=== PATIENT | male | born 1955 ===

== ENCOUNTER 2020-08-05 22:51 | Observation (INO) | payer MEDICARE, MEDICAID, SELFPAY ==
[2020-08-05 23:03] VITALS: BP 133/72; PULSE 111; RESP 18; TEMP 36.6; O2SAT 97; BMI 27.8
--- NOTE | 2020-08-05 23:14 | DI.RAD.S_ITS ---
PROCEDURE: XR CHEST 1V INDICATIONS: chest pain TECHNIQUE: One view of the chest was acquired. COMPARISON: [facility], CR, CHEST 1VW (PORTABLE), 10/19/2012, 15:57. [facility], CR, CHEST 1VW (PORTABLE), 08/27/2013, 16:28. [facility], CR, XR CHEST 1 VIEW, 06/07/2017, 12:27. [facility], CT, CT ANGIO CHEST PE, 04/12/2019, 7:04. [facility], US, US ABDOMEN LIMITED, 08/06/2020, 3:37. [facility], CT, CT ANGIO CHEST PE PROTOCOL, 08/06/2020, 0:49. FINDINGS: Surgical changes and devices: None. Lungs and pleura: Lungs are clear. No pleural effusions or pneumothorax. Mediastinum: Mediastinal contours appear normal. Heart size is normal. Bones and chest wall: No suspicious bony lesions. There is a remote left mid clavicle fracture. Overlying soft tissues appear unremarkable. IMPRESSION: Portable chest within normal limits. Note: No significant discrepancy from the preliminary report. Dictated by: Raffaele Foote M.D. on 08/06/2020 at 8:15 Approved by: Raffaele Foote M.D. on 08/06/2020 at 8:18
[2020-08-05 23:25] VITALS: BP 123/75; PULSE 105; RESP 20; O2SAT 96
[2020-08-05 23:26] LABS: Add Manual Diff / Slide Review NO; Basophils Absolute Auto 100 /uL (0-100); Eosinophils Absolute Auto 300 /uL (0-450); Eosinophils Percent Auto 4.4 % (2-4); Hematocrit 46.9 % (41-53); Lymphocytes Absolute Auto 2500 /uL (1100-4500); Lymphocytes Percent Auto 42.3 % (25-40); Mean Corpuscular Hemoglobin 29.9 PG (26-34); Mean Corpuscular Volume 87.9 fL (80-100); Monocytes Absolute Auto 400 /uL (0-900); Monocytes Percent Auto 6.1 % (3-14); Neutrophils Absolute Auto 2700 /uL (1500-7000); Neutrophils Percent Auto 45.2 % (50-75); Platelet Count 135 X10^3/uL (150-400); Red Blood Cell Count 5.34 X10^6/uL (4.5-5.9); Red Cell Distribution Width 14.5 % (11.6-14.8); White Blood Cell Count 5.9 X10^3/uL (4.5-11.0)
[2020-08-05 23:31] LABS: Alanine Aminotransferase 26 IU/L (<50); Albumin 4.4 g/dL (3.5-5.0); Albumin Globulin Ratio 1.6 (1.0-2.8); Alkaline Phosphatase 112 U/L (38-126); Aspartate Aminotransferase 45 IU/L (17-59); BUN Creatinine Ratio 14.3 (6-22); Bilirubin Total 0.2 mg/dL (0.2-1.3); Blood Urea Nitrogen 13 mg/dL (9-20); Calcium 8.8 mg/dL (8.4-10.2); Carbon Dioxide 27 mmol/L (22-32); Chloride 109 mmol/L (98-107); Creatine Kinase 42 U/L (55-170); Estimated Glomerular Filt Rate > 60.0 mL/min (>60); Globulin 2.8 g/dL (1.7-4.1); Glucose 196 mg/dL (80-110); HEMOLYSIS 21 (0-50); Lipase 548 U/L (23-300); Potassium 4.6 mmol/L (3.4-5.1); Total Protein 7.2 g/dL (6.3-8.2)
[2020-08-05 23:33] LABS: Prothrombin Time 10.8 SECONDS (10.1-12.7); Sodium 145 mmol/L (137-145)
[2020-08-05 23:35] LABS: PTT Partial Thromboplastin Tim 33 SECONDS (26.4-36.2)
[2020-08-05 23:42] LABS: Troponin I < 0.012 ng/mL (0.01-0.034)
[2020-08-06] VITALS (11 sets, daily range): BP systolic 102–149; BP diastolic 53–86; PULSE 91–105; RESP 11–18; TEMP 36.6–37; O2SAT 94–99; BMI 27.8
--- NOTE | 2020-08-06 00:27 | ED_ITS ---
HPI - Chest Pain General Chief Complaint: Chest Pain Stated Complaint: Back Pain Time Seen by Provider: 08/05/20 23:50 Source: patient and EMS Mode of arrival: EMS Limitations: language barrier History of Present Illness HPI narrative: The patient arrives by EMS with chest pain that started about 5:00 p.m. today. The pain radiates to his back. He has no associated palpitations, or dyspnea. He has no cough. He has no pain to the neck or his left arm. He has a known history of coronary artery disease, he has a history of VA. He is diabetic. He is currently off all medications. He is not taking baby aspirin. 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 He is currently without a doctor, although he has hyperlipidemia, and diabetes he is off all medications. He smokes tobacco occasionally. He denies alcohol use for several years. He has no URI symptoms, no fever, no cough or dyspnea. Related Data Home Medications Medication Instructions Recorded Confirmed atorvastatin 08/05/20 08/05/20 fenofibrate micronized mg 08/05/20 08/05/20 metformin mg 08/05/20 08/05/20 metoprolol succinate PO 08/05/20 08/05/20 oxycodone 08/05/20 08/05/20 Allergies Allergy/AdvReac Type Severity Reaction Status Date / Time No Known Drug Allergies Allergy Verified 08/05/20 23:10 Review of Systems Constitutional Constitutional: Denies body ache(s), Denies chills, Reports fatigue and Denies fever(s) ENT Ears, Nose, Mouth, and Throat: Denies dizziness Comments: No complaints Cardiovascular Cardiovascular: Reports as per HPI and Denies dyspnea Respiratory Respiratory: Denies chest congestion, Denies cough, Denies pain with cough and Denies dyspnea Gastrointestinal Comments: Upper abdominal pain. No nausea vomiting. Genitourinary Genitourinary: Denies dysuria Genitourinary: Denies dysuria Comments: No genital pain Musculoskeletal Musculoskeletal: Reports back pain and Denies numbness Integumentary/Breasts Skin/Breast: Denies rash Neurologic Neurologic: Denies confusion, Denies dizziness and Denies numbness Psychiatric Psychiatric: Denies confusion Endocrine Endocrine: Reports fatigue Patient History Medical History (Updated 08/06/20 @ 04:55 by Cristóbal Ramirez MD) Coronary artery disease Diabetes Surgical History (Updated 08/06/20 @ 00:30 by Cristóbal Ramirez MD) H/O heart artery stent Social History Smoking Status: Current every day smoker Smoking Status: Current every day smoker Substance Use Type: does not use Exam Initial Vital Signs Initial Vital Signs: Vital Signs Temperature 97.9 F 08/05/20 23:03 Pulse Rate 111 H 08/05/20 23:03 Respiratory Rate 18 08/05/20 23:03 Blood Pressure 133/72 08/05/20 23:03 Pulse Oximetry 97 08/05/20 23:03 Const General: cooperative and well developed Nutritional Appearance: well nourished HENNJ Mouth: oral mucosae normal Throat: posterior oropharynx normal Eyes General: appearance normal, both eyes and all related structures Eyelids: eyelids normal Conjunctivae: conjunctivae normal Sclera: sclerae normal Pupils: PERRL EOM: EOM intact bilaterally Neck Neck: No JVD Chest Other: Lower sternal tenderness. No palpable defects. Resp Other: Bibasilar rhonchi. Otherwise clear. Cardio Rate: regular rate Rhythm: regular rhythm Heart Sounds: S1 normal, S2 normal, no click, no gallops, no murmurs and no rubs Pulses: normal peripheral pulses GI Other: Moderate epigastric discomfort without distension. No guarding or rebound. Normal bowel sounds. Back/Spine/Pelvis Other: Palpable lower thoracic tenderness without obvious deformity. Skin General: no rashes or lesions noted Neuro General: patient alert, patient oriented x3, gait normal and no focal motor deficits Speech: speech normal Extrem General: full ROM, no pedal edema and no calf tenderness Psych Appearance: well kempt Mental Status: mental status grossly normal Attitude: cooperative Thought Content: normal and suicidality Judgment: judgment good Course Course Course Narrative: The patient's EKG, chest x-ray and troponin level are reassuring. A chest CT a was done due to an elevated D-dimer. There is no jhonathan dence of PE or acute cardiopulmonary findings. Is also noted he had an elevated lipase level. A follow-up alcohol level was added, the level was 241. He continues to deny alcohol use. Due to the CT of chest, additional CT abdomen was not pursued. An ultrasound showed no acute pathology. It is notable there is no evidence of issues with his gallbladder or pancreas. He has received IV fluids. His received 2 doses of morphine for pain. Due to his ongoing pain, admissions was discussed with the hospitalist, JOSE Blancas. He was admitted observation. Orders Ordered: ED Orders 08/05/20 23:14 XR chest 1V Stat EKG-12 Lead Stat 08/05/20 23:25 D Dimer Stat 08/06/20 00:40 CT angio chest PE protocol Stat 08/06/20 00:41 Ethanol (ETOH) Stat 08/06/20 03:02 US abdomen limited Stat Sodium Chloride (Normal Saline 0.9%) 1,000 mls @ 250 mls/hr IV CONT JUAN Last Admin: 08/06/20 00:48 Dose: 250 mls/hr Documented by: VIVEK Discontinued Medications Morphine Sulfate (Morphine 4 Mg/Ml Inj) 4 mg IV NOW ONE Stop: 08/06/20 00:42 Last Admin: 08/06/20 00:48 Dose: 4 mg Documented by: VIVEK Morphine Sulfate (Morphine 4 Mg/Ml Inj) 4 mg IV NOW ONE Stop: 08/06/20 03:04 Last Admin: 08/06/20 03:18 Dose: 4 mg Documented by: PIA Vital Signs Vital signs: Vital Signs - 8 hr 08/05/20 23:03 08/05/20 23:25 08/06/20 00:50 Temperature 97.9 F Pulse Rate 111 H 105 H 98 H Respiratory Rate 18 20 17 Blood Pressure 133/72 123/75 128/71 Pulse Oximetry 97 96 99 08/06/20 01:00 08/06/20 01:30 08/06/20 01:55 Temperature Pulse Rate 100 H 97 H 105 H Respiratory Rate 11 L 16 Blood Pressure 133/83 110/58 L 130/76 Pulse Oximetry 98 94 98 08/06/20 02:00 08/06/20 02:30 08/06/20 03:00 Temperature Pulse Rate 93 H 92 H 101 H Respiratory Rate 15 Blood Pressure 123/67 117/72 149/86 H Pulse Oximetry 97 96 97 MDM - Chest Pain Lab Data Result diagrams: 08/05/20 11:08 08/05/20 11:08 Labs: Lab Results 08/05/20 08/05/20 08/05/20 Range/Units 11:08 11:08 11:08 WBC 5.9 (4.5-11.0) X10^3/uL RBC 5.34 (4.5-5.9) X10^6/uL Hgb 16.0 (13.5-17.5) g/dL Hct 46.9 (41-53) % MCV 87.9 (80-100) fL MCH 29.9 (26-34) PG MCHC 34.0 (30-36) % RDW 14.5 (11.6-14.8) % Plt Count 135 L (150-400) X10^3/uL Neut % (Auto) 45.2 L (50-75) % Lymph % (Auto) 42.3 H (25-40) % [place] % (Auto) 6.1 (3-14) % Eos % (Auto) 4.4 H (2-4) % Baso % (Auto) 2.0 (0-2) % Neut # (Auto) 2700 (4670-6604) /uL Lymph # (Auto) 2500 (3475-5825) /uL [place] # (Auto) 400 (0-900) /uL Eos # (Auto) 300 (0-450) /uL Baso # (Auto) 100 (0-100) /uL PT 10.8 (10.1-12.7) SECONDS INR 1.0 (0.9-1.3) APTT 33 (26.4-36.2) SECONDS D-Dimer (<230) ng/mL Sodium 145 (137-145) mmol/L Potassium 4.6 (3.4-5.1) mmol/L Chloride 109 H (98-107) mmol/L Carbon Dioxide 27 (22-32) mmol/L BUN 13 (9-20) mg/dL Creatinine 0.91 (0.66-1.25) mg/dL Estimated GFR > 60.0 (>60) mL/min BUN/Creatinine Ratio 14.3 (6-22) Glucose 196 H (80-110) mg/dL Calcium 8.8 (8.4-10.2) mg/dL Magnesium 2.0 (1.6-2.3) mg/dL Total Bilirubin 0.2 (0.2-1.3) mg/dL AST 45 (17-59) IU/L ALT 26 (<50) IU/L Alkaline Phosphatase 112 (38-126) U/L Total Creatine Kinase 42 L (55-170) U/L CK-MB (CK-2) TNP CK-MB (CK-2) Rel Index TNP Troponin I < 0.012 (0.01-0.034) ng/mL Total Protein 7.2 (6.3-8.2) g/dL Albumin 4.4 (3.5-5.0) g/dL Globulin 2.8 (1.7-4.1) g/dL Albumin/Globulin Ratio 1.6 (1.0-2.8) Lipase 548 H (23-300) U/L Ethyl Alcohol ( - 10) mg/dL 08/05/20 08/05/20 Range/Units 23:08 23:25 WBC (4.5-11.0) X10^3/uL RBC (4.5-5.9) X10^6/uL Hgb (13.5-17.5) g/dL Hct (41-53) % MCV (80-100) fL MCH (26-34) PG MCHC (30-36) % RDW (11.6-14.8) % Plt Count (150-400) X10^3/uL Neut % (Auto) (50-75) % Lymph % (Auto) (25-40) % Med[place] % (Auto) (3-14) % Eos % (Auto) (2-4) % Baso % (Auto) (0-2) % Neut # (Auto) (8255-1094) /uL Lymph # (Auto) (7280-5673) /uL Medina # (Auto) (0-900) /uL Eos # (Auto) (0-450) /uL Baso # (Auto) (0-100) /uL PT (10.1-12.7) SECONDS INR (0.9-1.3) APTT (26.4-36.2) SECONDS D-Dimer 776 H (<230) ng/mL Sodium (137-145) mmol/L Potassium (3.4-5.1) mmol/L Chloride (98-107) mmol/L Carbon Dioxide (22-32) mmol/L BUN (9-20) mg/dL Creatinine (0.66-1.25) mg/dL Estimated GFR (>60) mL/min BUN/Creatinine Ratio (6-22) Glucose (80-110) mg/dL Calcium (8.4-10.2) mg/dL Magnesium (1.6-2.3) mg/dL Total Bilirubin (0.2-1.3) mg/dL AST (17-59) IU/L ALT (<50) IU/L Alkaline Phosphatase (38-126) U/L Total Creatine Kinase (55-170) U/L CK-MB (CK-2) CK-MB (CK-2) Rel Index Troponin I (0.01-0.034) ng/mL Total Protein (6.3-8.2) g/dL Albumin (3.5-5.0) g/dL Globulin (1.7-4.1) g/dL Albumin/Globulin Ratio (1.0-2.8) Lipase (23-300) U/L Ethyl Alcohol 241 H ( - 10) mg/dL Imaging Data Chest x-ray: Radiologist's Impression: No acute process CT scan - chest: Radiologist's Impression: No evidence of PE. No cardiopulmonary process. US - abdomen: Radiologist's Impression: Borderline hepatomegaly. Hepatic steatosis. The gallbladder appears normal. The pancreas appears normal. ECG Data Attestation: I personally reviewed and interpreted this ECG as follows: (Thank you normal sinus rhythm rate 99 beats per minute. Old inferior VA. Normal intervals. No acute ST T wave changes.) Critical Care Time Critical Care Time Critical Care Time: Yes Total Critical Care Time: 45 Attestation: Patient's evaluation included the initial interview, evaluation of EKG, lab in radiology studies. The situation was explained to the patient. Admission to observation was arranged with the hospitalist. Discharge Plan Departure Patient Disposition: Admitted as Observation Clinical Impression: Alcoholic pancreatitis, Diabetes mellitus, Alcohol abuse Admit Date/Time: 08/06/20 04:20 Admit Provider: Poppy Blancas
[2020-08-06 00:34] LABS: D Dimer 776 ng/mL (<230)
--- NOTE | 2020-08-06 00:40 | DI.CT.S_ITS ---
PROCEDURE: CT ANGIO CHEST PE PROTOCOL INDICATIONS: Atypical chest pain TECHNIQUE: After the administration of intravenous contrast, 2 mm thick sections acquired from the pulmonary apices to the posterior costophrenic angles. 3-dimensional maximum intensity projection (MIP) coronal and sagittal reformats were then acquired through the thorax. For radiation dose reduction, the following was used: automated exposure control, adjustment of mA and/or kV according to patient size. COMPARISON: [facility], CT, CT ABDOMEN PELVIS WITH CONTRAST, 04/12/2019, 7:04. [facility], US, US ABDOMEN LIMITED, 08/06/2020, 3:37. [facility], CR, XR CHEST 1V, 08/05/2020, 23:19. FINDINGS: Image quality: Excellent. Pulmonary arteries: Pulmonary arteries are normal in size, and demonstrate no intraluminal filling defects to suggest central pulmonary embolism. Lungs and pleura: Emphysematous changes are seen. No pleural effusions or pneumothorax. Central and peripheral airways are patent. Mediastinum: Heart size is normal, without pericardial effusion. No mediastinal or hilar adenopathy. Calcified mediastinal and perihilar lymph nodes are seen. Thoracic aorta is normal in caliber and enhancement. Esophagus is normal in caliber, without hiatal hernia. Bones and chest wall: No suspicious bony lesions. Ribs and thoracic spine appear intact throughout. Age-appropriate bony degenerative changes are seen. Thyroid gland demonstrates no significant abnormality. No axillary or supraclavicular adenopathy. Abdomen: Splenomegaly is seen, measuring 14.8 cm. The visualized liver also appears prominent. The visualized portions of the upper abdominal structures are otherwise unremarkable for imaging technique. IMPRESSION: Negative for pulmonary embolism. Emphysematous changes are seen. Incidental note is made of: Prior granulomatous exposure. Hepatosplenomegaly Note: No significant discrepancy from the preliminary report. Dictated by: Raffaele Foote M.D. on 08/06/2020 at 8:18 Approved by: Raffaele Foote M.D. on 08/06/2020 at 8:22
[2020-08-06] MEDS: SODIUM CHLORIDE 0.9% 1,000 ML 250 ML IV (00:48)
[2020-08-06] MEDS: MORPHINE 4 MG/ML INJ IV ×4 (00:48→10:45)
[2020-08-06 01:13] LABS: Ethanol (ETOH) 241 mg/dL
--- NOTE | 2020-08-06 03:02 | DI.US.S_ITS ---
PROCEDURE: US ABDOMEN LIMITED INDICATIONS: PANCREATITIS TECHNIQUE: Real-time focused scanning was performed of the abdomen, with image documentation. COMPARISON: [facility], US, US ABDOMEN LIMITED, 04/13/2019, 11:41. [facility], CR, XR CHEST 1V, 08/05/2020, 23:19. [facility], CT, CT ANGIO CHEST PE PROTOCOL, 08/06/2020, 0:49. FINDINGS: The liver demonstrates mildly prominent size. The liver demonstrates generalized moderately increased echogenicity. This decreases ultrasound sensitivity for detection of hepatic masses. No findings of gallstones or sludge are seen. The gallbladder wall is not thickened, measuring 3 mm or less. No specific pericholecystic fluid is seen. The sonographic Rivera sign is negative. There is no biliary dilatation, the common bile duct measures 5 mm. No significant pancreatic abnormality is seen on these images. IMPRESSION: No pancreatic abnormality is identified. The liver demonstrates increased echogenicity. This finding is nonspecific, yet it is most commonly attributed to fatty infiltration. Note: Concordant preliminary findings given by the marketing administrative assistant upon the completion of the examination to Dr. Ramirez at 3:45 a.m. on August 06, 2020. Note: No significant discrepancy from the preliminary report. Dictated by: Raffaele Foote M.D. on 08/06/2020 at 8:29 Approved by: Raffaele Foote M.D. on 08/06/2020 at 8:31
[2020-08-06 05:35] LABS: Hemoglobin A1C% w Est Avg Glu 8.4 % (4.0-6.0)
[2020-08-06] MEDS: SODIUM CHLORIDE 0.9% 1,000 ML 100 ML IV (05:39)
[2020-08-06 05:42] LABS: COVID19 - ADMIT (NP swab/PCR) Negative (Negative)
--- NOTE | 2020-08-06 06:32 | PM.HP.1 ---
History of Present Illness History of Present Illness Date Patient Seen: 08/06/20 Time Patient Seen: 06:15 Chief complaint: Back Pain Narrative: Rahul Mota is a 64-year-old male who lives in [place] presents with back and chest pain to the emergency department here. He appears to have diabetes type 2, coronary artery disease, and hyperlipidemia. He is currently not being followed by primary care and told me that he got his prescriptions from the emergency department and has not been able to get in to see anybody before August. He states that he gets heartburn and takes medicine for that but was not able to tell me what it is. He has limited [place] as he is from [facility]. He states that he is disabled and the has work related back pain. He denies nausea he denies fevers sweats or chills denies dysuria, diarrhea or constipation. He does endorse having lower extremity numbing. In the emergency department he was found to have an alcohol level of 241 and the ED provider performed an ultrasound with no significant abnormal findings. He was not able to have the patient undergo an abdominal CT due to the contrast load when he underwent a CTA to rule out a pulmonary embolism which was also negative. Patient is afebrile, blood pressure 119/73, heart rate 91, respiratory rate 16, oxygen saturation of 96% on room air, weighs 80 kg with a BMI of 27.8. Other than a mildly low platelet count of 135 the rest of his CBC is unremarkable, he did have an elevated D-dimer at 776, glucose is 196 and his hemoglobin A1c is 8.4, lipase was 548 and alcohol level 241, COVID-19 PCR was negative. Patient History Medical History (Updated 08/06/20 @ 07:58 by JOSE Yost) Coronary artery disease Diabetes type 2, uncontrolled Elevated blood alcohol level Surgical History (Updated 08/06/20 @ 00:30 by Cristóbal Ramirez MD) H/O heart artery stent Family & Social History Family History (Updated 08/06/20 @ 06:42 by JOSE Yost) Father Lung cancer Mother Medical history unknown Social History: household members significant other Prior Living Arrangements Apartment/Condo Safety & Behavioral: Feels Safe in Current Yes Environment Been Physically Hurt or No Threatened By a Person Suicidal Ideation Description None Suicide Plan Description No Plan Tobacco & Substance use: Tobacco type cigarettes Smoking Status Current every day smoker alcohol intake former stated not drank for 11 years Substance Use Type does not use Meds Home Medications and Allergies Home Medications Medication Instructions Recorded Confirmed Type atorvastatin [Lipitor] 40 mg PO DAILY 08/05/20 08/06/20 History metformin 500 mg PO BID 08/05/20 08/06/20 History metoprolol succinate 25 mg PO DAILY 08/05/20 08/06/20 History oxycodone 5 mg PO Q8HR PRN 08/05/20 08/06/20 History Aspirin Child 81 mg PO DAILY 08/06/20 08/06/20 History fenofibrate micronized 134 mg PO DAILY 08/06/20 08/06/20 History pantoprazole 40 mg PO DAILY 08/06/20 08/06/20 History Allergies Allergy/AdvReac Type Severity Reaction Status Date / Time No Known Drug Allergies Allergy Verified 08/05/20 23:10 Review of Systems Review of Systems ROS: Yes All systems reviewed with the patient and are negative except as otherwise documented Exam Vital Signs (past 8 hours): - 08/05/20 23:03 08/05/20 23:25 08/06/20 00:50 Temperature 97.9 F Pulse Rate 111 H 105 H 98 H Respiratory Rate 18 20 17 Blood Pressure 133/72 123/75 128/71 Pulse Oximetry 97 96 99 08/06/20 01:00 08/06/20 01:30 08/06/20 01:55 Temperature Pulse Rate 100 H 97 H 105 H Respiratory Rate 11 L 16 Blood Pressure 133/83 110/58 L 130/76 Pulse Oximetry 98 94 98 08/06/20 02:00 08/06/20 02:30 08/06/20 03:00 Temperature Pulse Rate 93 H 92 H 101 H Respiratory Rate 15 Blood Pressure 123/67 117/72 149/86 H Pulse Oximetry 97 96 97 08/06/20 05:18 08/06/20 06:00 Temperature 98.6 F Pulse Rate 91 H 91 H Respiratory Rate 16 16 Blood Pressure 113/67 119/73 Pulse Oximetry 94 96 Oxygen Delivery Method Room Air Oxygen Flow Rate 0 Narrative Exam Narrative: Gen: Alert, oriented, well-nourished 64 y.o. male, appears ill HEENT: normocephalic, atraumatic, conjunctiva clear, sclera non-icteric, oral mucosa pink and moist Neck: supple, full ROM, no JVD, trachea is midline Resp: Lungs CTA, non-labored breathing CV: RRR, no murmur or rubs Abd: soft, non-tender, normoactive BTs Skin: no lesions or rashes, dry and intact Neuro: Alert and oriented X 4 w/no focal deficits. Speech clear and coherent. Extremities: moves all 4 extremities, is ambulatory, negative Mert?s sign Psyche: normal mood and affect. Objective Labs Result Diagrams: 08/05/20 23:08 08/05/20 23:08 Labs: Laboratory Results - last 24 hr 08/05/20 08/05/20 08/05/20 23:08 23:08 23:08 WBC 5.9 RBC 5.34 Hgb 16.0 Hct 46.9 MCV 87.9 MCH 29.9 MCHC 34.0 RDW 14.5 Plt Count 135 L Neut % (Auto) 45.2 L Lymph % (Auto) 42.3 H Douglas % (Auto) 6.1 Eos % (Auto) 4.4 H Baso % (Auto) 2.0 Neut # (Auto) 2700 Lymph # (Auto) 2500 Douglas # (Auto) 400 Eos # (Auto) 300 Baso # (Auto) 100 PT 10.8 INR 1.0 APTT 33 D-Dimer Sodium 145 Potassium 4.6 Chloride 109 H Carbon Dioxide 27 BUN 13 Creatinine 0.91 Estimated GFR > 60.0 BUN/Creatinine Ratio 14.3 Glucose 196 H Hemoglobin A1c Calcium 8.8 Magnesium 2.0 Total Bilirubin 0.2 AST 45 ALT 26 Alkaline Phosphatase 112 Total Creatine Kinase 42 L CK-MB (CK-2) TNP CK-MB (CK-2) Rel Index TNP Troponin I < 0.012 Total Protein 7.2 Albumin 4.4 Globulin 2.8 Albumin/Globulin Ratio 1.6 Lipase 548 H Ethyl Alcohol SARS-CoV-2 (PCR) 08/05/20 08/05/20 08/05/20 23:08 23:08 23:25 WBC RBC Hgb Hct MCV MCH MCHC RDW Plt Count Neut % (Auto) Lymph % (Auto) Douglas % (Auto) Eos % (Auto) Baso % (Auto) Neut # (Auto) Lymph # (Auto) Douglas # (Auto) Eos # (Auto) Baso # (Auto) PT INR APTT D-Dimer 776 H Sodium Potassium Chloride Carbon Dioxide BUN Creatinine Estimated GFR BUN/Creatinine Ratio Glucose Hemoglobin A1c 8.4 H Calcium Magnesium Total Bilirubin AST ALT Alkaline Phosphatase Total Creatine Kinase CK-MB (CK-2) CK-MB (CK-2) Rel Index Troponin I Total Protein Albumin Globulin Albumin/Globulin Ratio Lipase Ethyl Alcohol 241 H SARS-CoV-2 (PCR) 08/06/20 04:34 WBC RBC Hgb Hct MCV MCH MCHC RDW Plt Count Neut % (Auto) Lymph % (Auto) Douglas % (Auto) Eos % (Auto) Baso % (Auto) Neut # (Auto) Lymph # (Auto) Douglas # (Auto) Eos # (Auto) Baso # (Auto) PT INR APTT D-Dimer Sodium Potassium Chloride Carbon Dioxide BUN Creatinine Estimated GFR BUN/Creatinine Ratio Glucose Hemoglobin A1c Calcium Magnesium Total Bilirubin AST ALT Alkaline Phosphatase Total Creatine Kinase CK-MB (CK-2) CK-MB (CK-2) Rel Index Troponin I Total Protein Albumin Globulin Albumin/Globulin Ratio Lipase Ethyl Alcohol SARS-CoV-2 (PCR) Negative Assessment & Plan Assessment & Plan narrative: Rahul Mota will be placed in observation to treat an acute presumed alcoholic pancreatitis. Acute pancreatitis present on admission -Clears -CT scan of the abdomen 24 hours after the CTA chest -IVF NS at 100 ml/hour -Pain control with IV morphine and toradal Elevated transaminases, unknown if acute -monitor liver enzymes panel daily Diabetes type 2 poorly controlled with an A1c of 8.7 -Initiated glargine 5 units bid -low dose correctional insulin achs CAD, chronic and normotensive at this time -Start home dose of metoprolol tartrate 25 mg po daily Hyperlipidemia, chronic -Continue home dose of atorvastatin 40 mg and fenofibrate 134 mg at bedtime VTE prophylaxis: Wells risk score: 0 Enoxaparin 40 mg subQ daily Consults: none Patient is observation status as his stay is not likely to exceed 2 midnights. FEN: IV ns at 100 ml/hour, clears, BMP and magnesium in the am. Dispo: Probable discharge to home Code Status: Full code as discussed with patient COVID-19 COVID-19 status: Negative Result date/Date tested (Pos, Neg/Pending): 08/06/20 Scores Wells' Criteria for PE Clinical signs and symptoms of DVT: No PE is #1 Dx or equally likely: No Heart rate > 100: No Immobilization at least 3 days or surg in previous 4 weeks: No History of PE or DVT: No Hemoptysis: No Malignancy w/Treatment within 6 months or palliative: No Wells' PE Score total: 0 Quality VTE Deep Vein Thrombosis/Pulmonary Embolism Present on Admission: No MIPS - Admit I confirm the patient?s Advance Care Plan is present, Code status is documented, Surrogate decision maker is in patient?s record [If Yes, STOP here]: Yes
--- NOTE | 2020-08-06 06:56 | PC.NURSE ---
0530 Admitted to room 209, oriented to his room, call light, TV & bed controls. C/O back pain, but did not C/O CP upon admit to the floor. pt. requested some Morphine 4 mg. admin. Denies drinking any alcohol states last time I drink was 4 years ago. Also reported not taking his home medications & stated last time I have my home medications was 4 weeks ago. Will cont. POC & monitor.
[2020-08-06 07:02] LABS: Ethanol (ETOH) 54 mg/dL
[2020-08-06 07:03] LABS: Hemoglobin A1C% w Est Avg Glu 8.7 % (4.0-6.0)
--- NOTE | 2020-08-06 08:09 | PM.DS.1 ---
History of Present Illness History of Present Illness Date Patient Seen: 08/06/20 Time Patient Seen: 08:09 Chief complaint: Back Pain Narrative: JOSE Watkins: Rahul Mota is a 64-year-old male who lives in [place] presents with back and chest pain to the emergency department here. He appears to have diabetes type 2, coronary artery disease, and hyperlipidemia. He is currently not being followed by primary care and told me that he got his prescriptions from the emergency department and has not been able to get in to see anybody before August. He states that he gets heartburn and takes medicine for that but was not able to tell me what it is. He has limited Irish as he is from [facility]. He states that he is disabled and the has work related back pain. He denies nausea he denies fevers sweats or chills denies dysuria, diarrhea or constipation. He does endorse having lower extremity numbing. In the emergency department he was found to have an alcohol level of 241 and the ED provider performed an ultrasound with no significant abnormal findings. He was not able to have the patient undergo an abdominal CT due to the contrast load when he underwent a CTA to rule out a pulmonary embolism which was also negative. Patient is afebrile, blood pressure 119/73, heart rate 91, respiratory rate 16, oxygen saturation of 96% on room air, weighs 80 kg with a BMI of 27.8. Other than a mildly low platelet count of 135 the rest of his CBC is unremarkable, he did have an elevated D-dimer at 776, glucose is 196 and his hemoglobin A1c is 8.4, lipase was 548 and alcohol level 241, COVID-19 PCR was negative. Discharge Providers Provider Date of admission: 08/06/20 04:20 Discharge Date: 08/07/20 Consults: 08/06/20 04:33 Consult to Discharge Planning Routine Comment: alcohol rehab Discharge provider: Candido Leigh DO Summary Hospital Course Discharge Diagnosis: Alcoholic hepatitis, acute, present on admission, improved GERD, acute on chronic, improved. Diabetes type 2 poorly controlled with an A1c of 8.7 CAD, chronic and normotensive at this time Hyperlipidemia, chronic Hospital Course: This is a 64-year-old male with a past medical history of CAD, at type 2 diabetes, and hyperlipidemia who was admitted with epigastric, lower chest pain which was radiating to his back. Patient had a mildly elevated lipase, elevated alcohol level on admission, although the patient adamantly denied alcohol. CT imaging done in the emergency room did not show any pancreatic inflammation. Patient described the epigastric pain is predominantly burning and he did have a history of reflux. He was admitted for observation for possible pancreatitis, and the following morning he was able to tolerate a diet without any abdominal pain or nausea. Further possibilities include an alcoholic hepatitis given elevated transaminases that improved quickly. He was recommended for discharge on an oral PPI twice daily from his usual once a day for presumed GERD as well.. He should follow-up with his primary care provider as an outpatient. Exam Vital Signs (past 8 hours): - 08/06/20 00:50 08/06/20 01:00 08/06/20 01:30 Temperature Pulse Rate 98 H 100 H 97 H Respiratory Rate 17 11 L 16 Blood Pressure 128/71 133/83 110/58 L Pulse Oximetry 99 98 94 08/06/20 01:55 08/06/20 02:00 08/06/20 02:30 Temperature Pulse Rate 105 H 93 H 92 H Respiratory Rate Blood Pressure 130/76 123/67 117/72 Pulse Oximetry 98 97 96 08/06/20 03:00 08/06/20 05:18 08/06/20 06:00 Temperature 98.6 F Pulse Rate 101 H 91 H 91 H Respiratory Rate 15 16 16 Blood Pressure 149/86 H 113/67 119/73 Pulse Oximetry 97 94 96 08/06/20 06:47 Temperature Pulse Rate Respiratory Rate Blood Pressure Pulse Oximetry 96 Oxygen Delivery Method Room Air Oxygen Flow Rate 0 Narrative Exam Narrative: Gen: Alert, oriented, well-nourished 64 y.o. male, no acute distress, sitting comfortably in hospital bed. HEENT: normocephalic, atraumatic, conjunctiva clear, sclera non-icteric, oral mucosa pink and moist Neck: supple, full ROM, no JVD, trachea is midline Resp: Lungs CTA, non-labored breathing CV: RRR, no murmur or rubs Abd: soft, non-tender, normoactive BTs Skin: no lesions or rashes, dry and intact Neuro: Alert and oriented X 4 w/no focal deficits. Speech clear and coherent. Extremities: moves all 4 extremities, is ambulatory, negative Mert?s sign Psyche: normal mood and affect. Objective Labs Result Diagrams: 08/05/20 23:08 08/05/20 23:08 Labs: Laboratory Results - last 24 hr 08/05/20 08/05/20 08/05/20 23:08 23:08 23:08 WBC 5.9 RBC 5.34 Hgb 16.0 Hct 46.9 MCV 87.9 MCH 29.9 MCHC 34.0 RDW 14.5 Plt Count 135 L Neut % (Auto) 45.2 L Lymph % (Auto) 42.3 H [place] % (Auto) 6.1 Eos % (Auto) 4.4 H Baso % (Auto) 2.0 Neut # (Auto) 2700 Lymph # (Auto) 2500 [place] # (Auto) 400 Eos # (Auto) 300 Baso # (Auto) 100 PT 10.8 INR 1.0 APTT 33 D-Dimer Sodium 145 Potassium 4.6 Chloride 109 H Carbon Dioxide 27 BUN 13 Creatinine 0.91 Estimated GFR > 60.0 BUN/Creatinine Ratio 14.3 Glucose 196 H Hemoglobin A1c Calcium 8.8 Magnesium 2.0 Total Bilirubin 0.2 AST 45 ALT 26 Alkaline Phosphatase 112 Total Creatine Kinase 42 L CK-MB (CK-2) TNP CK-MB (CK-2) Rel Index TNP Troponin I < 0.012 Total Protein 7.2 Albumin 4.4 Globulin 2.8 Albumin/Globulin Ratio 1.6 Lipase 548 H Ethyl Alcohol SARS-CoV-2 (PCR) 08/05/20 08/05/20 08/05/20 23:08 23:08 23:25 WBC RBC Hgb Hct MCV MCH MCHC RDW Plt Count Neut % (Auto) Lymph % (Auto) [place] % (Auto) Eos % (Auto) Baso % (Auto) Neut # (Auto) Lymph # (Auto) [place] # (Auto) Eos # (Auto) Baso # (Auto) PT INR APTT D-Dimer 776 H Sodium Potassium Chloride Carbon Dioxide BUN Creatinine Estimated GFR BUN/Creatinine Ratio Glucose Hemoglobin A1c 8.4 H Calcium Magnesium Total Bilirubin AST ALT Alkaline Phosphatase Total Creatine Kinase CK-MB (CK-2) CK-MB (CK-2) Rel Index Troponin I Total Protein Albumin Globulin Albumin/Globulin Ratio Lipase Ethyl Alcohol 241 H SARS-CoV-2 (PCR) 08/06/20 08/06/20 08/06/20 04:34 06:30 06:30 WBC RBC Hgb Hct MCV MCH MCHC RDW Plt Count Neut % (Auto) Lymph % (Auto) [place] % (Auto) Eos % (Auto) Baso % (Auto) Neut # (Auto) Lymph # (Auto) [place] # (Auto) Eos # (Auto) Baso # (Auto) PT INR APTT D-Dimer Sodium Potassium Chloride Carbon Dioxide BUN Creatinine Estimated GFR BUN/Creatinine Ratio Glucose Hemoglobin A1c 8.7 H Calcium Magnesium Total Bilirubin AST ALT Alkaline Phosphatase Total Creatine Kinase CK-MB (CK-2) CK-MB (CK-2) Rel Index Troponin I Total Protein Albumin Globulin Albumin/Globulin Ratio Lipase Ethyl Alcohol 54 H SARS-CoV-2 (PCR) Negative [facility] Medical History (Updated 08/06/20 @ 07:58 by JOSE Yost) Coronary artery disease Diabetes type 2, uncontrolled Elevated blood alcohol level Surgical History (Updated 08/06/20 @ 00:30 by Cristóbal Ramirez MD) H/O heart artery stent Family History (Updated 08/06/20 @ 06:42 by JOSE Yost) Father Lung cancer Mother Medical history unknown Social History household members: significant other Smoking Status: Current every day smoker alcohol intake: former Discharge Plan Discharge Plan Patient Disposition: Home Provider Discharge Comment: You were admitted to the hospital with abdominal and chest pain. This may be due to mild pancreatitis or reflux. Please increase your pantoprazole to twice daily at home, otherwise no medication changes are recommended. If you drink alcohol, this can make your pancreas irritated as well. Discharge orders & Medications Prescriptions: Continued atorvastatin [Lipitor] 40 mg tablet 40 mg PO DAILY RF: 0 metformin 500 mg tablet 500 mg PO BID RF: 0 metoprolol succinate 25 mg tablet extended release 24 hr 25 mg PO DAILY RF: 0 oxycodone 5 mg tablet 5 mg PO Q8HR PRN (Reason: Pain.) RF: 0 fenofibrate micronized 134 mg capsule 134 mg PO DAILY RF: 0 Aspirin Child tablet 81 mg PO DAILY RF: 0 Changed pantoprazole tablet 40 mg PO BID Qty: 0 RF: 0 Diet/Activity/Treatments Diet: Diet as Tolerated and Low-fat Activity: As tolerated Visit Report/Discharge Packet Instructions: Coronary Artery Disease, DI for Pancreatitis, DI for Diabetes Type 2, DI for Coronary Artery Disease Discharge Data Attending Provider: Poppy Blancas VTE Deep Vein Thrombosis/Pulmonary Embolism Present on Admission: No
[2020-08-06] MEDS: ASPIRIN 81 MG CHEW TAB PO (08:51)
[2020-08-06] MEDS: MULTIVITAMIN 1 TABLET 1 TAB PO (08:52)
[2020-08-06] MEDS: FOLIC ACID 1 MG TABLET PO (08:52)
[2020-08-06] MEDS: THIAMINE 100 MG TABLET PO (08:52)
[2020-08-06] MEDS: ATORVASTATIN 20 MG TABLET 40 MG PO (08:53)
[2020-08-06] MEDS: FENOFIBRATE MICRONIZED 67 MG 134 EACH PO (08:56)
[2020-08-06] MEDS: SODIUM CHLORIDE 0.9% FLUSH 10 ML IV (08:57)
[2020-08-06] MEDS: KETOROLAC 30 MG/ML VIAL 15 MG IV (09:18)
--- NOTE | 2020-08-06 10:53 | CM.DANOTE ---
DCP: Case received, EMR reviewed and met with patient. Introduced self and role. Was able to obtain some information from patient regarding his baseline activity level prior to hospitalization, as well as his current living situation. DCP assessment completed with information currently available Patient is a 64 year old male who admitted early this morning to the care of the hospitalist team. PCP: None currently, establishing at [facility] in August. Payer: Medicare/Medicaid. Patient came to the hospital via ambulance secondary to having some back and abdominal discomfort. Patient holds current diagnosis of alcoholic pancreatitis. He also has history of diabetes type 2, and [place]. He is also a current smoker. Met with patient in his room. He was sitting up in bed, pleasant. Patient is originally from [facility]. He resides in [place] with his significant other, Brianna. He mentioned that he only drives short distances, and his significant does not drive. Patient mentioned that he has no current provider, but has an appointment in [place] in August for a current provider. Patient denies drinking, when this immigration case worker inquired. He is independent upon mobility. P: Patient is to be discharging home today. Called [employer] since they provide Medicaid transport, but patient has no transportation coverage due to spend down. Called [employer], and they indicated that transportation to [place] would be $45.00, patient stated he has credit card and can pay. 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 Kimberly Merino RN/Front Desk Admin
[2020-08-06 11:02] LABS: Alanine Aminotransferase 22 IU/L (<50); Albumin 3.5 g/dL (3.5-5.0); Albumin Globulin Ratio 1.5 (1.0-2.8); Alkaline Phosphatase 79 U/L (38-126); Aspartate Aminotransferase 36 IU/L (17-59); Bilirubin Total 0.2 mg/dL (0.2-1.3); Globulin 2.4 g/dL (1.7-4.1); HEMOLYSIS < 15 (0-50); Total Protein 5.9 g/dL (6.3-8.2)
--- NOTE | 2020-08-06 11:49 | PC.NURSE ---
Pt received lying in bed A&Ox3, requesting water and food. Initially NPO, then orders received for po diet. Pt tolerated well. Denies increased abdomen pain, nausea/vomitting. BS + x4. LS CTA. Reports back pain 8-10/10 pain, some relief with prn pain medications. Able to move about the room and ambulate with steady gait. VSS, afebrile. Declining to take metoprolol this a.m. MD notified. Upon MD evaluation this a.m. patient cleared for d/c home. CM arranging transportation via taxi. Pt verbalized understanding of medication change and instructions to follow up with PCP. Student nurse and RN escorted patient to [facility]'s taxi via w/[facility] with all of his belongings to discharge home.
--- NOTE | 2020-08-15 21:06 | PC.NURSE ---
Late Entry; NS infusion initiated 08/06 at 0539, stopped by discharge order, 0813.
== END 2020-08-06 11:15 | disposition home or self-care (01) ==
LOC: ED 23:50 → AC 08-06 04:20
PROVIDERS: Admitting Provider Nurse Practitioner Family; Emergency Provider Emergency Medicine; Referring Provider Emergency Medicine; Visit Provider Nurse Practitioner Family
DX: R07.9 Chest pain, unspecified (principal); I25.10 Atherosclerotic heart disease of native coronary artery without angina pectoris; I25.2 Old myocardial infarction; E11.9 Type 2 diabetes mellitus without complications; E78.5 Hyperlipidemia, unspecified; F17.210 Nicotine dependence, cigarettes, uncomplicated; R78.0 Finding of alcohol in blood; Y90.8 Blood alcohol level of 240 mg/100 ml or more; Z20.822 Contact with and (suspected) exposure to COVID-19
CPT/HCPCS: 36415; 71045; 71275; 76705; 80053; 80076; 80320; 82550; 82553; 82962; 83036; 83690; 83735; 84484; 85025; 85379; 85610; 85730; 87635; 93005; 96361; 96374; 96375; 96376; 99285; 99291; C9803; G0378; J1815; J1885; J2270; Q9967

== ENCOUNTER 2021-12-31 18:45 | Observation (INO) | payer MEDICARE, MEDICAID, SELFPAY ==
[2020-08-06 05:30] VITALS: BMI 27.8
--- NOTE | 2021-12-31 18:47 | DI.RAD.S_ITS ---
PROCEDURE: XR CHEST 1V INDICATIONS: chest pain TECHNIQUE: One view of the chest was acquired. COMPARISON: [facility], CR, XR CHEST 1V, 08/05/2020, 23:19. FINDINGS: Surgical changes and devices: None. Lungs and pleura: Lungs are clear. No pleural effusions or pneumothorax. Mediastinum: Mediastinal contours appear normal. Heart size is normal. Bones and chest wall: No suspicious bony lesions. Prior left clavicle fracture. Overlying soft tissues appear unremarkable. IMPRESSION: No acute osseous abnormality. Dictated by: Tian Monroy M.D. on 12/31/2021 at 19:23 Approved by: Tian Monroy M.D. on 12/31/2021 at 19:24
--- NOTE | 2021-12-31 18:48 | ED_ITS ---
HPI - General Adult General Chief complaint: Chest Pain Stated complaint: Bilateral LE, pelvis and chest wall pain Time Seen by Provider: 12/31/21 18:45 Source: patient Mode of arrival: EMS Limitations: no limitations History of Present Illness HPI narrative: Patient is a 66-year-old male. Is from [facility]. Malaysian is a 2nd language. He denied multiple offers for translation services. He is brought in by EMS for evaluation of worsening of his chronic lower back pain, bilateral lower extremity weakness, pain in his abdomen and bladder area, chest pain. Somewhat difficult to determine what is new for this patient and what is not new. It appears that he has chronic low back pain but over the past several days/weeks his pain seems to have worsened. He also has pain down both of his legs. He states that this causes him to be so weak that he can not make it to the bathroom and has soiled himself in the past because he could not get up off of his chair. He also describes pain in his lower abdomen. He is had pain all over his abdomen for several weeks now if not longer but worsening pain in his lower abdomen over the past couple days. He stated that the last time that he urinated was several hours ago. He is also having chest discomfort. For what I can ascertain the started yesterday. No shortness of breath. Initially there were reports that the pain was worse with palpation however he told me that it is not worse with movement or palpation of breathing. He denied any other medical problems but his lower back pain to myself. Related Data Home Medications Medication Instructions Recorded Confirmed atorvastatin 40 mg tablet (Lipitor) 40 mg PO DAILY 08/05/20 08/06/20 metformin 500 mg tablet 500 mg PO BID 08/05/20 08/06/20 metoprolol succinate 25 mg 25 mg PO DAILY 08/05/20 08/06/20 tablet,extended release 24 hr oxycodone 5 mg tablet 5 mg PO Q8HR PRN Pain. 08/05/20 08/06/20 Aspirin Child 81 mg PO DAILY 08/06/20 08/06/20 fenofibrate micronized 134 mg 134 mg PO DAILY 08/06/20 08/06/20 capsule naproxen sodium 220 mg capsule 220 mg PO BID 12/31/21 12/31/21 (Aleve) Previous Rx's Medication Instructions Recorded pantoprazole 40 mg PO BID ##0 08/06/20 Allergies Allergy/AdvReac Type Severity Reaction Status Date / Time No Known Drug Allergies Allergy Verified 08/05/20 23:10 Review of Systems Review of Systems ROS Unobtainable: All systems reviewed & are unremarkable except as noted in HPI and below Patient History Medical History Coronary artery disease Diabetes type 2, uncontrolled Elevated blood alcohol level Surgical History H/O heart artery stent Family History Father Lung cancer Mother Medical history unknown Social History household members: significant other Smoking Status: Current every day smoker alcohol intake: former Smoking Status: Current every day smoker Substance Use Type: does not use Exam Initial Vital Signs Initial Vital Signs: Vital Signs Pulse Rate 120 H 12/31/21 18:51 Respiratory Rate 26 H 12/31/21 18:51 Pulse Oximetry 95 12/31/21 18:51 Oxygen Delivery Method 12/31/21 18:51 Const General: No ill appearing HENMT Head: normal to inspection and normocephalic Eyes General: Yes appearance normal, both eyes and all related structures Chest Chest: No crepitus and No tenderness Resp Effort & Inspection: normal respiratory effort Auscultation: clear to auscultation bilaterally Cardio Rate: tachycardic Rhythm: regular rhythm GI Inspection: normal to inspection Palpation: soft, No firm and tender (Diffuse tenderness and suprapubic region) Skin General: no rashes or lesions noted Lesions: no lesions Neuro General: patient alert, patient awake and moves all extremities Speech: speech normal Gait: normal gait Extrem General: normal to inspection, capillary refill normal and No edema Psych Appearance: grossly normal Course Orders Ordered: ED Orders 12/31/21 18:47 XR chest 1V Stat EKG-12 Lead Stat 12/31/21 19:00 Complete Blood Count AUTO DIFF Stat Comprehensive Metabolic Panel Stat Lipase Stat Magnesium Stat Troponin & CK Cardiac Panel Stat Urinalysis and Microscopic Stat 12/31/21 20:16 COVID19 -Nasal RAPID/Pre-Proc Stat Acetaminophen (Acetaminophen 325 Mg Tablet) 650 mg PO Q6HR PRN PRN Reason: Fever/Mild Pain (1-3) Aspirin (Aspirin Ec 81 Mg Tablet) 81 mg PO DAILY [facility] Atorvastatin Calcium (Atorvastatin 20 Mg Tablet) 40 mg PO BEDTIME [facility] Last Admin: 12/31/21 23:51 Dose: 40 mg Documented By: AM Dextrose (Dextrose 50 % In Water 25 Gm/50 Ml Syringe) 25 gm IV PRN PRN PRN Reason: Hypoglycemia Enoxaparin Sodium (Enoxaparin 40 Mg/0.4 Ml Syringe) 40 mg SUBCUT DAILY [facility] Insulin Human Lispro (Insulin Lispro 100 Unit/Ml 3ml Vial) 0 unit SUBCUT ACHS [facility]; Protocol Last Admin: 01/01/22 00:02 Dose: 3 unit Documented By: AM Co-signed By: Ondansetron HCl (Ondansetron 4 Mg/2 Ml Inj) 4 mg IV Q8HR PRN PRN Reason: Nausea And Vomiting Last Admin: 12/31/21 23:50 Dose: 4 mg Documented By: AM Tramadol HCl (Tramadol 50 Mg Tablet) 50 mg PO Q4H PRN PRN Reason: Pain, Moderate (4-6) Last Admin: 12/31/21 23:50 Dose: 50 mg Documented By: AM Discontinued Medications Hydromorphone HCl (Hydromorphone 1 Mg Inj) 1 mg IV NOW ONE Stop: 12/31/21 20:06 Last Admin: 12/31/21 20:19 Dose: 1 mg Documented By: NADIYA Lidocaine HCl (Lidocaine 2% (Glydo) 6 Ml Gel) 6 ml TOP NOW ONE Stop: 12/31/21 18:44 Last Admin: 12/31/21 19:29 Dose: 6 ml Documented By: MAGNOLIA Morphine Sulfate (Morphine 4 Mg/Ml Inj) 4 mg IV NOW ONE Stop: 12/31/21 19:00 Last Admin: 12/31/21 19:32 Dose: 4 mg Documented By: NADIYA Vital Signs Vital signs: Vital Signs - 8 hr 12/31/21 18:51 12/31/21 18:54 12/31/21 18:54 Pulse Rate 120 H 107 H Respiratory Rate 26 H Blood Pressure 138/84 Pulse Oximetry 95 95 Oxygen Delivery Method Room Air 12/31/21 19:00 12/31/21 19:00 12/31/21 19:30 Pulse Rate 104 H Respiratory Rate Blood Pressure 134/75 111/69 Pulse Oximetry 95 Oxygen Delivery Method 12/31/21 19:30 12/31/21 19:50 12/31/21 19:50 Pulse Rate 102 H 97 H Respiratory Rate 11 L Blood Pressure 157/83 H Pulse Oximetry 95 96 Oxygen Delivery Method Medical Decision Making Lab Data Lab results reviewed: Yes I reviewed the patient's lab results. Result diagrams: 12/31/21 19:00 12/31/21 19:00 Labs: Lab Results 12/31/21 12/31/21 12/31/21 Range/Units 17:00 19:00 19:00 WBC 6.5 (4.5-11.0) X10^3/uL RBC 5.46 (4.5-5.9) X10^6/uL Hgb 16.8 (13.5-17.5) g/dL Hct 47.6 (41-53) % MCV 87.2 (80-100) fL MCH 30.7 (26-34) PG MCHC 35.2 (30-36) % RDW 14.1 (11.6-14.8) % Plt Count 154 (150-400) X10^3/uL Neut % (Auto) 56.9 (50-75) % Lymph % (Auto) 34.0 (25-40) % [place] % (Auto) 6.3 (3-14) % Eos % (Auto) 2.0 (2-4) % Baso % (Auto) 0.8 (0-2) % Neut # (Auto) 3700 (4994-0344) /uL Lymph # (Auto) 2200 (4429-7254) /uL [place] # (Auto) 400 (0-900) /uL Eos # (Auto) 100 (0-450) /uL Baso # (Auto) 0 (0-100) /uL D-Dimer (<500) ng/ml Sodium 138 (137-145) mmol/L Potassium 5.4 H (3.4-5.1) mmol/L Chloride 105 (98-107) mmol/L Carbon Dioxide 17 L (22-32) mmol/L BUN 5 L (9-20) mg/dL Creatinine 0.71 (0.66-1.25) mg/dL Estimated GFR > 60 (>60) mL/min BUN/Creatinine Ratio 7.0 (6-22) Glucose 390 H (80-110) mg/dL Calcium 8.3 L (8.4-10.2) mg/dL Magnesium 1.8 (1.6-2.3) mg/dL Total Bilirubin 1.1 (0.2-1.3) mg/dL AST 91 H (17-59) IU/L ALT 90 H (<50) IU/L Alkaline Phosphatase 129 H (38-126) U/L Total Creatine Kinase 38 L (55-170) U/L CK-MB (CK-2) TNP CK-MB (CK-2) Rel Index TNP Troponin I < 0.012 (0.01-0.034) ng/mL Total Protein 7.6 (6.3-8.2) g/dL Albumin 4.3 (3.5-5.0) g/dL Globulin 3.3 (1.7-4.1) g/dL Albumin/Globulin Ratio 1.3 (1.0-2.8) Lipase 648 H (23-300) U/L Urine Color Urine Appearance Urine pH (4.5-8.0) Ur Specific [place] (1.000-1.035) Urine Protein (Negative) Urine Glucose (UA) (Negative) g/dL Urine Ketones (NEGATIVE) Urine Occult Blood (Negative) Urine Nitrate (Negative) Urine Bilirubin (NEGATIVE) Urine Urobilinogen (0.2) E.U./dL Ur Leukocyte Esterase (NEGATIVE) Urine RBC (0-5/HPF) Urine WBC (0-5/HPF) Amorphous Sediment Urine Bacteria (None) Ur Culture Indicated? Ethyl Alcohol 225 H ( - 10) mg/dL SARS-CoV-2 (PCR) (Negative) 12/31/21 12/31/21 12/31/21 Range/Units 19:00 19:00 20:16 WBC (4.5-11.0) X10^3/uL RBC (4.5-5.9) X10^6/uL Hgb (13.5-17.5) g/dL Hct (41-53) % MCV (80-100) fL MCH (26-34) PG MCHC (30-36) % RDW (11.6-14.8) % Plt Count (150-400) X10^3/uL Neut % (Auto) (50-75) % Lymph % (Auto) (25-40) % [place] % (Auto) (3-14) % Eos % (Auto) (2-4) % Baso % (Auto) (0-2) % Neut # (Auto) (7181-6955) /uL Lymph # (Auto) (5665-2790) /uL [place] # (Auto) (0-900) /uL Eos # (Auto) (0-450) /uL Baso # (Auto) (0-100) /uL D-Dimer 1528 H (<500) ng/ml Sodium (137-145) mmol/L Potassium (3.4-5.1) mmol/L Chloride (98-107) mmol/L Carbon Dioxide (22-32) mmol/L BUN (9-20) mg/dL Creatinine (0.66-1.25) mg/dL Estimated GFR (>60) mL/min BUN/Creatinine Ratio (6-22) Glucose (80-110) mg/dL Calcium (8.4-10.2) mg/dL Magnesium (1.6-2.3) mg/dL Total Bilirubin (0.2-1.3) mg/dL AST (17-59) IU/L ALT (<50) IU/L Alkaline Phosphatase (38-126) U/L Total Creatine Kinase (55-170) U/L CK-MB (CK-2) CK-MB (CK-2) Rel Index Troponin I (0.01-0.034) ng/mL Total Protein (6.3-8.2) g/dL Albumin (3.5-5.0) g/dL Globulin (1.7-4.1) g/dL Albumin/Globulin Ratio (1.0-2.8) Lipase (23-300) U/L Urine Color Yellow Urine Appearance Clear Urine pH 5.0 (4.5-8.0) Ur Specific [place] <=1.005 (1.000-1.035) Urine Protein Negative (Negative) Urine Glucose (UA) 3+ H (Negative) g/dL Urine Ketones Negative (NEGATIVE) Urine Occult Blood Negative (Negative) Urine Nitrate Negative (Negative) Urine Bilirubin Negative (NEGATIVE) Urine Urobilinogen 0.2 (0.2) E.U./dL Ur Leukocyte Esterase Negative (NEGATIVE) Urine RBC 0-1/hpf (0-5/HPF) Urine WBC None seen (0-5/HPF) Amorphous Sediment 1+ Urine Bacteria None seen (None) Ur Culture Indicated? Cult not indicated Ethyl Alcohol ( - 10) mg/dL SARS-CoV-2 (PCR) Negative (Negative) Imaging Data Chest x-ray: Radiologist's Impression: [address] [address] XRay Report Signed Patient: Rahul Mota MR#: [id number] : 1955 Acct:[id number] Age/Sex: 66 / M Date of Service: 12/31/21 Loc: ED Accession Number: [id number] ?? Procedure: XR chest 1V Ordering Provider: Cullen Guadarrama D.O. PROCEDURE:? XR CHEST 1V ? INDICATIONS:? chest pain ? TECHNIQUE:? One view of the chest was acquired.? ? COMPARISON:? [facility], CR, XR CHEST 1V, 08/05/2020, 23:19. ? FINDINGS:? ? Surgical changes and devices:? None.? ? Lungs and pleura:? Lungs are clear.? No pleural effusions or pneumothorax.? ? Mediastinum:? Mediastinal contours appear normal.? Heart size is normal.? ? Bones and chest wall:? No suspicious bony lesions.? Prior left clavicle fracture.? Overlying soft tissues appear unremarkable.? ? IMPRESSION:? No acute osseous abnormality. ? ? Dictated by: Tian Monroy M.D. on 12/31/2021 at 19:23 ? ? Approved by: Tian Monroy M.D. on 12/31/2021 at 19:24?? ECG Data Interpretation: Sinus rhythm Ventricular rate [address] T wave changes MDM Narrative Medical decision making narrative: Bladder scan upon arrival shows greater than 600 cc of urine in his bladder. A Weiner catheter was placed. Patient stated that this did improve his lower abdominal discomfort somewhat. His lower back pain is not new. The pain in his legs are not new. This has been going on for several weeks/months. Because of his urinary retention did consider cauda equina. Patient denies any trauma. He is no saddle anesthesia. EKG is unremarkable. Chest x-ray is unremarkable. Troponins negative. Patient does not have a primary care doctor. Initially denied any other medical problems to myself and states he does not take any medi cations. I do feel patient does need further risk stratification of his chest discomfort. Discussed the case with Dr. Chinchilla on-call for Internal Medicine will admit for further evaluation and treatment. The D-dimer and alcohol level were ordered by admitting team. Discussed the need for admission with the patient. He expressed understanding and agreement as well. Discharge Plan Departure Patient Disposition: Admitted as Observation Clinical Impression: Atypical chest pain, Hypertension, Low back pain, Acute urinary retention, Hyperglycemia Admit Date/Time: 12/31/21 20:16 Admit Provider: Clyde Chinchilla
[2021-12-31 18:51] VITALS: PULSE 120; RESP 26; O2SAT 95
[2021-12-31 18:54] VITALS: BP 138/84; PULSE 107; O2SAT 95
[2021-12-31 19:00] VITALS: BP 134/75; PULSE 104; O2SAT 95
[2021-12-31 19:08] LABS: Add Manual Diff / Slide Review NO; Basophils Absolute Auto 0 /uL (0-100); Basophils Percent Auto 0.8 % (0-2); Eosinophils Absolute Auto 100 /uL (0-450); Hematocrit 47.6 % (41-53); Hemoglobin 16.8 g/dL (13.5-17.5); Lymphocytes Absolute Auto 2200 /uL (1100-4500); Mean Corpuscular HGB Conc 35.2 % (30-36); Mean Corpuscular Hemoglobin 30.7 PG (26-34); Mean Corpuscular Volume 87.2 fL (80-100); Monocytes Absolute Auto 400 /uL (0-900); Monocytes Percent Auto 6.3 % (3-14); Neutrophils Absolute Auto 3700 /uL (1500-7000); Neutrophils Percent Auto 56.9 % (50-75); Platelet Count 154 X10^3/uL (150-400); Red Blood Cell Count 5.46 X10^6/uL (4.5-5.9); Red Cell Distribution Width 14.1 % (11.6-14.8); White Blood Cell Count 6.5 X10^3/uL (4.5-11.0)
[2021-12-31 19:12] LABS: Appearance Urine UA CLEAR; Bilirubin Urine UA NEGATIVE (NEGATIVE); Color Urine UA YELLOW; Glucose Urine UA 3+ g/dL (Negative); Ketones Urine UA NEGATIVE (NEGATIVE); Leukocyte Esterase Urine UA NEGATIVE (NEGATIVE); Nitrite Urine UA NEGATIVE (Negative); Occult Blood Urine UA NEGATIVE (Negative); Protein Urine UA NEGATIVE (Negative); Specific Gravity Urine UA <=1.005 (1.000-1.035); Urobilinogen Urine UA 0.2 E.U./dL (0.2)
[2021-12-31 19:19] LABS: Amorphous Sediment Urine 1+; Bacteria Urine None Seen; Culture Indicated Urine Cult Not Indicated; RBC Urine 0-1/HPF (0-5/HPF); WBC Urine None Seen (0-5/HPF)
[2021-12-31 19:20] LABS: Alanine Aminotransferase 90 IU/L (<50); Albumin 4.3 g/dL (3.5-5.0); Albumin Globulin Ratio 1.3 (1.0-2.8); Alkaline Phosphatase 129 U/L (38-126); Aspartate Aminotransferase 91 IU/L (17-59); Bilirubin Total 1.1 mg/dL (0.2-1.3); Blood Urea Nitrogen 5 mg/dL (9-20); Calcium 8.3 mg/dL (8.4-10.2); Carbon Dioxide 17 mmol/L (22-32); Chloride 105 mmol/L (98-107); Creatine Kinase 38 U/L (55-170); Estimated Glomerular Filt Rate > 60 mL/min (>60); Globulin 3.3 g/dL (1.7-4.1); Glucose 390 mg/dL (80-110); Lipase 648 U/L (23-300); Magnesium 1.8 mg/dL (1.6-2.3); Sodium 138 mmol/L (137-145); Total Protein 7.6 g/dL (6.3-8.2)
[2021-12-31 19:22] LABS: HEMOLYSIS 72 (0-50); Potassium 5.4 mmol/L (3.4-5.1)
[2021-12-31] MEDS: LIDOCAINE 2% (GLYDO) 6 ML GEL TOP (19:29)
[2021-12-31 19:30] VITALS: BP 111/69; PULSE 102; O2SAT 95
[2021-12-31 19:32] LABS: Troponin I < 0.012 ng/mL (0.01-0.034)
[2021-12-31] MEDS: MORPHINE 4 MG/ML INJ IV (19:32)
[2021-12-31 19:50] VITALS: BP 157/83; PULSE 97; RESP 11; O2SAT 96
--- NOTE | 2021-12-31 19:50 | PC.NURSE ---
Patient laying back on gurney with arms by his side. He reports continued 7/10 substernal chest pain without radiation, describing it as pressure. Pain does not change with movement. He reports some relief after eden catheter placement.
[2021-12-31] MEDS: HYDROMORPHONE 1 MG INJ IV (20:19)
[2021-12-31 20:52] LABS: D Dimer 1528 ng/ml (<500)
[2021-12-31 21:20] VITALS: BP 158/88; PULSE 101; RESP 20; TEMP 36.7; O2SAT 97
--- NOTE | 2021-12-31 21:24 | DI.NM.S_ITS ---
PROCEDURE: NM ARCHANA PERF SPECT R&S PHARM Rest and pharmacological stress myocardial perfusion SPECT with gated imaging and ejection fraction RADIOPHARMACEUTICAL: 9.2 mCi Tc-99m tetrafosmin IV at rest and 27.4 mCi Tc-99m tetrafosmin IV at peak effect of pharmacological stress. Wge-gvi-yaglaemt was performed. INDICATIONS: Chest pain TECHNIQUE: Radiopharmaceutical was injected at peak stress test, and also at rest. SPECT images were obtained. SPECT myocardial perfusion images were displayed in short axis, horizontal long axis, and vertical long axis views. Gated images were reviewed using [employer] software. COMPARISON: None. CARDIAC STRESS: A pharmacologic stress test was performed under the supervision of an attending staff, using an infusion of regadenoson. Hemodynamic data: There is normal blood pressure and heart rate response to pharmacologic stress. Symptoms: The patient denied anginal chest pain. EKG: Unable to evaluate for ischemia with pharmacologic stress; no ectopy. FINDINGS: Raw data: There is good myocardial uptake of radiotracer. No significant motion artifacts. Dcdj-oq-bhzij ratio is 0.47 (normal is less than 0.38 for tetrafosmin tracer). Left ventricle function: Gated images demonstrate inferior and inferolateral hypokinesis. No segmental wall motion abnormalities. No transient ischemic dilation; TID is 1.23 (normal less than 1.3). Left ventricle stress end diastolic volume is 146 mL. Left ventricle stress ejection fraction is 62%; normal range is above 45%. Myocardial perfusion: There is a large size, moderate to severe intensity fixed inferior and inferolateral wall defect. No reversible perfusion defects. IMPRESSION: No evidence of pharmacologic induced ischemia. Inferior and inferolateral scar on perfusion imaging with associated hypokinesis. Increased LVEDV in the post stress images with preserved ejection fraction. Dictated by: Sujatha Retana D.O. on 01/01/2022 at 16:57 Approved by: Sujatha Retana D.O. on 01/01/2022 at 17:01
--- NOTE | 2021-12-31 21:24 | DI.ECHO.S_ITS ---
[facility]---------+ [facility] +---------+ : : [address] : : : : [id number] : : : : Phone: [phone]+ Echocardiogram Report + + :Name: CINDY LOBATO Study Date: 01/01/2022 Height: 68 in : :[facility] ReadingLocation: Weight: 180 lb : : Gender: Male BSA: 2.0 m2 : :: 1955 Age: 66 yrs BP: 157/83 mmHg: :Reason For Study: CHEST PAIN : :Ordering Physician: MECHE, : :RIZWAN Performed By: Shannan Lawler : :Referring: RIZWAN MCGREGOR : + + Interpretation Summary The patient was in sinus rhythm with heart rates between 78-90 bpm during the exam. Hypertensive during exam The ejection fraction is estimated to be 45-50%. There is a borderline dyssynchronous contraction pattern, consistent with a conduction abnormality. Diastolic parameters suggest a relaxation abnormality of the left ventricle, consistent with probable normal filling pressures. No prior study for comparison. Procedure: A two-dimensional transthoracic echocardiogram with color flow and Doppler was performed. The study quality was technically adequate. There is no prior echocardiogram noted for this patient. The patient was in sinus rhythm with heart rates between 78-90 bpm during the exam. Hypertensive during exam. Left Ventricle: The estimated left ventricular end diastolic volume is 95 ml. The left ventricle is grossly normal size. There is normal left ventricular wall thickness. The ejection fraction is estimated to be 45-50%. There is a borderline dyssynchronous contraction pattern, consistent with a conduction abnormality. Diastolic parameters suggest a relaxation abnormality of the left ventricle, consistent with probable normal filling pressures. Right Ventricle: The right ventricle is normal in size and function. Atria: The left atrium grossly appears normal in size. Right atrial size is normal. There is no Doppler evidence for an interatrial shunt. Mitral Valve: The mitral valve is normal in structure and function. There is trace mitral regurgitation. Aortic Valve: The aortic valve is trileaflet. The aortic valve opens well. There is no aortic valve stenosis. There is trace aortic regurgitation. Tricuspid Valve: The tricuspid valve is normal in structure and function. There is trace tricuspid regurgitation. Pulmonic Valve: The pulmonic valve is not well seen, but is grossly normal. There is no pulmonic valvular regurgitation. Great Vessels: The aortic root is normal size. The dimensions of the ascending aorta are normal. The inferior vena cava was not well visualized. Pericardium/ Pleura There is no pericardial effusion. There is no pleural effusion. MMode/2D Measurements & Calculations LVIDd: 6.1 cm LVOT diam: 2.1 cm LVIDs: 4.7 cm Ao root diam: 3.3 cm FS: 23.3 % asc Aorta Diam: 3.5 cm EPSS: 1.1 cm Ao Arch Diam (Prox Trans): 2.9 cm IVSd: 0.85 cm LVPWd: 0.85 cm LV vaughn. diameter/BSA (cm/m^2): 3.1 LV sys. diameter/BSA (cm/m^2): 2.4 LA A2 area: 15.2 cm2 RA long axis: 4.4 cm LA A4 area: 14.1 cm2 RA area: 11.5 cm2 LA length (vol): 4.7 cm RA vol: 25.6 ml LA vol: 38.5 ml RA : 13.1 ml/m2 LA vol index: 19.7 ml/m2 IVC diam: 0.96 cm RVD1 (basal): 2.4 cm RVD2 (mid): 1.8 cm TAPSE: 1.7 cm Doppler Measurements & Calculations Ao V2 max: 112.2 cm/sec LVOT Max Miah: 92.1 cm/sec Ao V2 mean: 84.5 cm/sec LV V1 max P.4 mmHg Ao max P.0 mmHg LV V1 VTI: 18.5 cm Ao mean P.1 mmHg BRIAN(I,D): 2.9 cm2 Ao V2 VTI: 21.9 cm BRIAN(V,D): 2.8 cm2 sev ratio: 0.85 BRIAN indexed to BSA (cm^2/m^2): 1.5 MV E max miah: 47.3 cm/sec PA V2 max: 89.8 cm/sec MV A max miah: 77.0 cm/sec PA V2 mean: 63.8 cm/sec MV E/A: 0.61 PA mean P.8 mmHg Med Peak E' Miah: 5.0 cm/sec PA pr(Accel): 49.9 mmHg E/E' med: 9.4 Lat Peak E' Miah: 10.3 cm/sec E/E' lat: 4.6 E/e' average: 7.0 MV dec time: 0.24 sec SVLVOT): 63.1 ml Reading Physician:KASEY
[2021-12-31 21:28] VITALS: BMI 27.3
[2021-12-31 21:32] LABS: COVID19 -Nasal RAPID Negative (Negative)
--- NOTE | 2021-12-31 21:48 | DI.CT.S_ITS ---
PROCEDURE: CT ANGIO CHEST PE PROTOCOL INDICATIONS: chest pain TECHNIQUE: After the administration of intravenous contrast, 2 mm thick sections acquired from the pulmonary apices to the posterior costophrenic angles. 3-dimensional maximum intensity projection (MIP) coronal and sagittal reformats were then acquired through the thorax. For radiation dose reduction, the following was used: automated exposure control, adjustment of mA and/or kV according to patient size. COMPARISON: [facility], CT, CT ABDOMEN PELVIS W CON, 12/31/2021, 23:01. [facility], CT, CT ANGIO CHEST PE PROTOCOL, 08/06/2020, 0:49. FINDINGS: Image quality: Excellent. Pulmonary arteries: Pulmonary arteries are normal in size, and demonstrate no intraluminal filling defects to suggest central pulmonary embolism. Lower Neck: No lymphadenopathy by size criteria. Thyroid: Visualized thyroid demonstrates no discrete nodules. Axillae: No lymphadenopathy by size criteria. Chest Wall: Unremarkable. Bones: Visualized osseous structures demonstrate no suspicious lesions. Lungs and Airways: Within the medial left upper lobe, there is a pulmonary nodule measuring up to 1.6 cm on series 5, image 127 with spiculated margins which is new compared to the prior study. This extends to the pericardium medially. No acute consolidation. There is dependent atelectasis bilaterally. A linear region of scarring or atelectasis is also demonstrated in the right lower lobe posteriorly. There are [id number] centrilobular emphysematous changes and mild paraseptal emphysematous changes. Scarring is redemonstrated within the lung apices. A calcified left upper lobe nodule is redemonstrated consistent with sequelae of old granulomas disease. The trachea and central airways are patent. Pleura: No pneumothorax or pleural effusions. Heart: Heart size is normal. No pericardial effusion. Thoracic Vessels: The thoracic aorta is normal in size. Mediastinum and Dione: No lymphadenopathy by size criteria. There are calcified mediastinal and hilar lymph nodes consistent with sequelae of old granulomatous disease. Esophagus: No wall thickening. No hiatal hernia. Abdomen: Visualized upper abdomen demonstrates hypoattenuation of the visualized liver consistent with fatty infiltration. IMPRESSION: 1. No evidence of pulmonary embolism. 2. New left upper lobe spiculated nodule extending to the pericardium medially is nonspecific but suspicious for a neoplasm such as bronchogenic carcinoma. Recommend further evaluation with PET-CT. Dictated by: Severo Choe M.D. on 01/01/2022 at 1:00 Approved by: Severo Choe M.D. on 01/01/2022 at 1:06
--- NOTE | 2021-12-31 21:48 | DI.CT.S_ITS ---
PROCEDURE: CT ABDOMEN PELVIS W CON INDICATIONS: abdominal pain TECHNIQUE: After the administration of IV contrast, axial sections were acquired from the lung bases to the pubic symphysis. Coronal and sagittal reformats were performed. For radiation dose reduction, the following was used: automated exposure control, adjustment of mA and/or kV according to patient size. COMPARISON: [facility], CT, CT ABDOMEN PELVIS WITH CONTRAST, 04/12/2019, 7:04. FINDINGS: Image quality: Excellent. Lung bases: There is atelectasis and scarring in the right lower lobe. Heart: Heart is normal in size. ABDOMEN: Liver: There is diffuse hypoattenuation of the liver consistent with fatty infiltration. Gallbladder: Within normal limits without calcified gallstones. Biliary ducts: No biliary ductal dilatation. Pancreas: Unremarkable. Spleen: Normal in size. Adrenal Glands: No adrenal nodules. Kidneys and Ureters: No hydronephrosis. A left renal cortical cyst is noted. Stomach and Bowel: Stomach, small bowel loops, and colon are normal in caliber and wall thickness. The appendix is normal in appearance. Colonic diverticulosis is present without acute diverticulitis. Peritoneum: No abnormal intraperitoneal fluid. No free air. Ventral Wall: No hernia. Abdominal Nodes: No retroperitoneal or mesenteric adenopathy by size criteria. Vessels: Aorta and inferior vena cava are normal in size. PELVIS: Pelvic Organs: Unremarkable. Bladder: There is a Weiner catheter within a partially distended urinary bladder. Pelvic Nodes: No enlarged lymph nodes. Miscellaneous: There are small bilateral fat-containing inguinal hernias. Bones: Visualized osseous structures demonstrate no suspicious focal lesions. IMPRESSION: 1. No definite acute intra-abdominal abnormality. Specifically, no evidence of appendicitis. 2. Colonic diverticulosis without acute diverticulitis. 3. Hepatic steatosis. Dictated by: Severo Choe M.D. on 01/01/2022 at 0:56 Approved by: Severo Choe M.D. on 01/01/2022 at 0:59
--- NOTE | 2021-12-31 21:49 | PM.HP.1 ---
History of Present Illness History of Present Illness Date Patient Seen: 12/31/21 Time Patient Seen: 20:00 Chief complaint: Bilateral LE, pelvis and chest wall pain Narrative: Mr. Mota is a 66M with PMH CAD s/p MA, DM, active tobacco smoker who presents with multiple complaints. He has a history of CAD s/p MA in 2012. He takes no medications currently and does not follow up with any physician or PCP. He also has had chronic back pain after an injury decades ago and has significant mobility issues. He comes in to the hospital today with complaints of chest pain. This has been going on a couple days. He thought it was possibly heartburn. It is pressure like pain in a band across his chest, with some associated shortness of breath. No cough/fevers. He also complains of chronic low back pain, which is now radiating to his legs. He has had chronic lower extremity numbness, and may have had an episode of incontinence in the past. He also is complaining of generalized abdominal pain with no nausea, vomiting, or diarrhea. In the ED workup was done, vitals notable for heart rate in the 120s, respiratory rate in the 20s. Labs notable for WBC 6.5, hgb 16.8, plts 155. Creatinine 0.71. Glucose 390. Lipase 648. AST/ALT 91/90. UA negative. Chest xray with no acute process. EKG shows no acute ischemia. He was ordered for pain medications and admitted for further treatment. Patient History Medical History Coronary artery disease Diabetes type 2, uncontrolled Elevated blood alcohol level Surgical History H/O heart artery stent Family & Social History Family History Father Lung cancer Mother Medical history unknown Social History: household members significant other Prior Living Arrangements Apartment/Condo Safety & Behavioral: Feels Safe in Current Yes Environment Tobacco & Substance use: Tobacco type cigarettes Smoking Status Current every day smoker alcohol intake former Substance Use Type does not use Meds Home Medications and Allergies Home Medications Medication Instructions Recorded Confirmed Type atorvastatin 40 mg tablet (Lipitor) 40 mg PO DAILY 08/05/20 08/06/20 History metformin 500 mg tablet 500 mg PO BID 08/05/20 08/06/20 History metoprolol succinate 25 mg 25 mg PO DAILY 08/05/20 08/06/20 History tablet,extended release 24 hr oxycodone 5 mg tablet 5 mg PO Q8HR PRN Pain. 08/05/20 08/06/20 History Aspirin Child 81 mg PO DAILY 08/06/20 08/06/20 History fenofibrate micronized 134 mg 134 mg PO DAILY 08/06/20 08/06/20 History capsule pantoprazole 40 mg PO BID ##0 08/06/20 08/06/20 Rx naproxen sodium 220 mg capsule 220 mg PO BID 12/31/21 12/31/21 History (Aleve) Allergies Allergy/AdvReac Type Severity Reaction Status Date / Time No Known Drug Allergies Allergy Verified 08/05/20 23:10 Review of Systems Review of Systems Narrative: 14 systems reviewed and negative aside from what is noted in HPI Exam Vital Signs (past 8 hours): - 12/31/21 18:51 12/31/21 18:54 12/31/21 18:54 Pulse Rate 120 H 107 H Respiratory Rate 26 H Blood Pressure 138/84 Pulse Oximetry 95 95 Oxygen Delivery Method Room Air 12/31/21 19:00 12/31/21 19:00 12/31/21 19:30 Pulse Rate 104 H Respiratory Rate Blood Pressure 134/75 111/69 Pulse Oximetry 95 Oxygen Delivery Method 12/31/21 19:30 12/31/21 19:50 12/31/21 19:50 Pulse Rate 102 H 97 H Respiratory Rate 11 L Blood Pressure 157/83 H Pulse Oximetry 95 96 Oxygen Delivery Method Oxygen Delivery Method Room Air Narrative Exam Narrative: GEN: appears in pain HEENT: moist mucous membranes, PERRL NECK: trachea midline, no JVD PULM: clear bilaterally, no wheezes, rhonchi, rales CV: regular rate and rhythm, no murmurs ABD: soft, tender to palpation, no rebound/guarding, no organomegaly, normal bowel sounds EXT: warm and well perfused with no edema SKIN: petechia in lower extremities NEURO: awake, alert oriented, lower extremity numbness Objective Labs Result Diagrams: 12/31/21 19:00 12/31/21 19:00 Labs: Laboratory Results - last 24 hr 12/31/21 12/31/21 12/31/21 19:00 19:00 19:00 WBC 6.5 RBC 5.46 Hgb 16.8 Hct 47.6 MCV 87.2 MCH 30.7 MCHC 35.2 RDW 14.1 Plt Count 154 Neut % (Auto) 56.9 Lymph % (Auto) 34.0 Villalba % (Auto) 6.3 Eos % (Auto) 2.0 Baso % (Auto) 0.8 Neut # (Auto) 3700 Lymph # (Auto) 2200 Villalba # (Auto) 400 Eos # (Auto) 100 Baso # (Auto) 0 D-Dimer Sodium 138 Potassium 5.4 H Chloride 105 Carbon Dioxide 17 L BUN 5 L Creatinine 0.71 Estimated GFR > 60 BUN/Creatinine Ratio 7.0 Glucose 390 H Calcium 8.3 L Magnesium 1.8 Total Bilirubin 1.1 AST 91 H ALT 90 H Alkaline Phosphatase 129 H Total Creatine Kinase 38 L CK-MB (CK-2) TNP CK-MB (CK-2) Rel Index TNP Troponin I < 0.012 Total Protein 7.6 Albumin 4.3 Globulin 3.3 Albumin/Globulin Ratio 1.3 Lipase 648 H Urine Color Yellow Urine Appearance Clear Urine pH 5.0 Ur Specific [place] <=1.005 Urine Protein Negative Urine Glucose (UA) 3+ H Urine Ketones Negative Urine Occult Blood Negative Urine Nitrate Negative Urine Bilirubin Negative Urine Urobilinogen 0.2 Ur Leukocyte Esterase Negative Urine RBC 0-1/hpf Urine WBC None seen Amorphous Sediment 1+ Urine Bacteria None seen Ur Culture Indicated? Cult not indicated SARS-CoV-2 (PCR) 12/31/21 12/31/21 19:00 20:16 WBC RBC Hgb Hct MCV MCH MCHC RDW Plt Count Neut % (Auto) Lymph % (Auto) Villalba % (Auto) Eos % (Auto) Baso % (Auto) Neut # (Auto) Lymph # (Auto) Villalba # (Auto) Eos # (Auto) Baso # (Auto) D-Dimer 1528 H Sodium Potassium Chloride Carbon Dioxide BUN Creatinine Estimated GFR BUN/Creatinine Ratio Glucose Calcium Magnesium Total Bilirubin AST ALT Alkaline Phosphatase Total Creatine Kinase CK-MB (CK-2) CK-MB (CK-2) Rel Index Troponin I Total Protein Albumin Globulin Albumin/Globulin Ratio Lipase Urine Color Urine Appearance Urine pH Ur Specific [place] Urine Protein Urine Glucose (UA) Urine Ketones Urine Occult Blood Urine Nitrate Urine Bilirubin Urine Urobilinogen Ur Leukocyte Esterase Urine RBC Urine WBC Amorphous Sediment Urine Bacteria Ur Culture Indicated? SARS-CoV-2 (PCR) Negative Assessment & Plan Assessment & Plan narrative: Mr. Mota is a 66M with PMH CAD, DM who presents with chest pain, back pain, abdominal pain. 1. Chest pain -patient has history of CAD s/p MA -no recent cardiac workup -continue to trend troponins -ordered aspirin/statin -ordered nuc stress test 3. Type 2 Diabetes -patient not taking any medications -initial glucose >390 -start insulin sliding scale -check a1c 4. Back pain -patient has chronic back pain from previous injury -now has lower extremity numbness, weakness, urinary retention, and question of incontinence -ordered for pain meds -MRI lumbar spine -PT eval 5. Lower extremity numbness -possibly secondary to diabetes -workup diabetes as above -also possibly secondary to back pathology -lumbar MRI ordered 6. Urinary retention, acute -etiology likely BPH -rule out spinal process with MRI -plan to start flomax prior to DC if MRI negative -likely will need to dc with eden and follow up with urology 7. Abdominal pain -lipase only mildly elevated -order CT abdomen/pelvis for further evaluation 8. Active smoker -encourage cessation 9. Possible alcohol abuse -patient denies alcohol abuse -has denied in past and had elevated etoh level -check etoh level 10. Transaminitis -question if patient uses alcohol -CT abdomen ordered -trend daily CODE: Full Proxy: Andie Vazquez, family I have utilized all available resources to reconcile the patient's home medications Time Spent With Patient Critical Care time: I spent a total of [] minutes of critical care time on this patient's care today; this time is exclusive of procedural time. Quality MIPS - Admit I confirm the patient?s Advance Care Plan is present, Code status is documented, Surrogate decision maker is in patient?s record [If Yes, STOP here]: Yes
[2021-12-31 22:17] LABS: Ethanol (ETOH) 225 mg/dL
[2021-12-31] MEDS: TRAMADOL 50 MG TABLET PO (23:50)
[2021-12-31] MEDS: ONDANSETRON 4 MG/2 ML INJ IV (23:50)
[2021-12-31] MEDS: ATORVASTATIN 20 MG TABLET 40 MG PO (23:51)
[2022-01-01] VITALS (7 sets, daily range): BP systolic 128–174; BP diastolic 78–89; PULSE 78–105; RESP 16–20; TEMP 36–37.6; O2SAT 93–97
--- NOTE | 2022-01-01 | DI.MRI.S_ITS ---
PROCEDURE: MR LUMBAR SPINE WO/W CON INDICATIONS: BACK PAIN, URINARY RETENTION, LOWER LEG NUMBNESS TECHNIQUE: Noncontrast sagittal T1 spin echo and T2 fast spin echo, sagittal STIR, axial T1 and T2 fast spin echo through the lumbar spine. In cases with scoliosis, additional coronal T2 fast spin echo may be performed. After the administration of contrast, sagittal and axial T1 spin echo with fat saturation through the lumbar spine. COMPARISON: [facility], CT, CT ABDOMEN PELVIS W CON, 12/31/2021, 23:01. FINDINGS: Normal lumbar vertebral body height and alignment. No suspicious focal marrow signal abnormality or bone marrow edema. No abnormal enhancement in the vertebral column. Normal position and appearance of the conus. Prevertebral and paraspinous soft tissues demonstrate no acute finding. Nonspecific partially visualized bilateral perinephric fat stranding with corresponding enhancement. From T12-L1 through L3-L4, there is no spinal canal stenosis, neural foraminal stenosis, or significant degenerative changes. L4-L5: Diffuse disc bulge and a superimposed broad-based posterior disc protrusion flattens the ventral thecal sac. No mass effect upon the traversing L5 nerve roots. Mild bilateral neural foraminal stenosis. L5-S1: Diffuse disc bulge and a superimposed broad-based posterior disc protrusion flattens and indents the ventral thecal sac. Disc material displaces the descending left S1 nerve roots in the left subarticular zone. Foraminal components of the disc bulge and facet hypertrophy combine to produce mild bilateral neural foraminal stenosis. IMPRESSION: Nonspecific partially visualized bilateral perinephric fat stranding which demonstrates corresponding enhancement. Correlate with other clinical evidence to exclude pyelonephritis or urinary tract obstruction. No findings of focal nerve root impingement, significant neural foraminal narrowing, or spinal canal stenosis. Dictated by: Benito Evans M.D. on 01/01/2022 at 9:45 Approved by: Benito Evans M.D. on 01/01/2022 at 9:51
[2022-01-01] MEDS: INSULIN LISPRO 100 UNIT/ML 3ML VIAL SUBCUT ×4 (00:02→20:54)
--- NOTE | 2022-01-01 04:19 | PC.NURSE ---
Pt brought up from ED smelling of alcohol, very pleasant with staff and care. Pt states drinks a few beers every day. Vomited once after CT scan and oral contrast. C/o chest and chronic back pain. Tramadol given and promptly fell asleep. Pt on tele w/ sinus tachy. States sinhala is primary language, but has difficulty understand plain language and finding sinhala words for response. Pt states concerns about disability, as they are taking it away.
[2022-01-01 05:50] LABS: Add Manual Diff / Slide Review NO; Basophils Absolute Auto 0 /uL (0-100); Basophils Percent Auto 0.3 % (0-2); Eosinophils Absolute Auto 100 /uL (0-450); Eosinophils Percent Auto 1.4 % (2-4); Hematocrit 48.4 % (41-53); Hemoglobin 16.7 g/dL (13.5-17.5); Lymphocytes Absolute Auto 1600 /uL (1100-4500); Lymphocytes Percent Auto 25.1 % (25-40); Mean Corpuscular HGB Conc 34.5 % (30-36); Mean Corpuscular Hemoglobin 30.2 PG (26-34); Mean Corpuscular Volume 87.7 fL (80-100); Monocytes Absolute Auto 600 /uL (0-900); Monocytes Percent Auto 9.4 % (3-14); Neutrophils Absolute Auto 4200 /uL (1500-7000); Neutrophils Percent Auto 63.8 % (50-75); Platelet Count 152 X10^3/uL (150-400); Red Blood Cell Count 5.51 X10^6/uL (4.5-5.9); Red Cell Distribution Width 13.9 % (11.6-14.8); White Blood Cell Count 6.5 X10^3/uL (4.5-11.0)
[2022-01-01 06:03] LABS: BUN Creatinine Ratio 10.4 (6-22); Blood Urea Nitrogen 8 mg/dL (9-20); Calcium 8.9 mg/dL (8.4-10.2); Carbon Dioxide 23 mmol/L (22-32); Chloride 101 mmol/L (98-107); Estimated Glomerular Filt Rate > 60 mL/min (>60); Glucose 320 mg/dL (80-110); HEMOLYSIS 20 (0-50); Potassium 4.4 mmol/L (3.4-5.1); Sodium 138 mmol/L (137-145)
[2022-01-01 06:14] LABS: Alanine Aminotransferase 85 IU/L (<50); Albumin 4.2 g/dL (3.5-5.0); Albumin Globulin Ratio 1.4 (1.0-2.8); Alkaline Phosphatase 136 U/L (38-126); Aspartate Aminotransferase 74 IU/L (17-59); Bilirubin Total 0.8 mg/dL (0.2-1.3); Bilirubin Unconjugated 0.5 mg/dL (0.0-1.1); HEMOLYSIS 21 (0-50); Total Protein 7.2 g/dL (6.3-8.2)
[2022-01-01 06:15] LABS: Troponin I < 0.012 ng/mL (0.01-0.034)
[2022-01-01] MEDS: TRAMADOL 50 MG TABLET PO ×4 (06:15→20:49)
--- NOTE | 2022-01-01 07:39 | PC.NURSE ---
Addendum entered by Willis Whitney R.N. 01/01/22 08:53: Patient initially wanting open MRI and states he is unable to have a closed MRI. Patient seen by Dr. David, and lorazepam ordered and 1 dose given as ordered prior to MRI this morning. Patient states his legs are weak, like I can't walk and states he has discomfort or pain with palpation across his lower abdomen and upper chest. Patient off unit for test at this time. Original Note: Echo is in progress at bedside this morning. Bed alarm on and call light within reach.
--- NOTE | 2022-01-01 07:52 | P.PN_ITS ---
Subjective Subjective Date Patient Seen: 01/01/22 Time Patient Seen: 09:00 Interval history: Patient notes increased low back pain and weakness in his legs. Says he has no trouble peeing usually and didn't know he was retaining urine despite almost 1L urine being present when eden cath placed. Exam Vital Signs (past 8 hours): - 01/01/22 01:14 01/01/22 05:29 Temperature 97.8 F 97.4 F L Pulse Rate 89 105 H Respiratory Rate 19 20 Blood Pressure 128/78 158/88 H Pulse Oximetry 97 97 Oxygen Flow Rate 0 0 Oxygen Delivery Method Room Air Oxygen Flow Rate 0 Narrative Exam Narrative: GEN: comfortable HEENT: moist mucous membranes, PERRL NECK: trachea midline, no JVD PULM: clear bilaterally, no wheezes, rhonchi, rales CV: regular rate and rhythm, no murmurs ABD: soft, tender to palpation, no rebound/guarding, no organomegaly, normal bowel sounds EXT: warm and well perfused with no edema SKIN: petechia in lower extremities NEURO: awake, alert oriented, lower extremity numbness present, strength 4/5 in LE's Objective Labs Result Diagrams: 01/01/22 05:40 01/01/22 05:40 Labs: Laboratory Results - last 24 hr 12/31/21 12/31/21 12/31/21 17:00 19:00 19:00 WBC 6.5 RBC 5.46 Hgb 16.8 Hct 47.6 MCV 87.2 MCH 30.7 MCHC 35.2 RDW 14.1 Plt Count 154 Neut % (Auto) 56.9 Lymph % (Auto) 34.0 [place] % (Auto) 6.3 Eos % (Auto) 2.0 Baso % (Auto) 0.8 Neut # (Auto) 3700 Lymph # (Auto) 2200 [place] # (Auto) 400 Eos # (Auto) 100 Baso # (Auto) 0 D-Dimer Sodium 138 Potassium 5.4 H Chloride 105 Carbon Dioxide 17 L BUN 5 L Creatinine 0.71 Estimated GFR > 60 BUN/Creatinine Ratio 7.0 Glucose 390 H Calcium 8.3 L Magnesium 1.8 Total Bilirubin 1.1 Conjugated Bilirubin Unconjugated Bilirubin AST 91 H ALT 90 H Alkaline Phosphatase 129 H Total Creatine Kinase 38 L CK-MB (CK-2) TNP CK-MB (CK-2) Rel Index TNP Troponin I < 0.012 Total Protein 7.6 Albumin 4.3 Globulin 3.3 Albumin/Globulin Ratio 1.3 Lipase 648 H Urine Color Urine Appearance Urine pH Ur Specific [place] Urine Protein Urine Glucose (UA) Urine Ketones Urine Occult Blood Urine Nitrate Urine Bilirubin Urine Urobilinogen Ur Leukocyte Esterase Urine RBC Urine WBC Amorphous Sediment Urine Bacteria Ur Culture Indicated? Ethyl Alcohol 225 H SARS-CoV-2 (PCR) 12/31/21 12/31/21 12/31/21 19:00 19:00 20:16 WBC RBC Hgb Hct MCV MCH MCHC RDW Plt Count Neut % (Auto) Lymph % (Auto) [place] % (Auto) Eos % (Auto) Baso % (Auto) Neut # (Auto) Lymph # (Auto) [place] # (Auto) Eos # (Auto) Baso # (Auto) D-Dimer 1528 H Sodium Potassium Chloride Carbon Dioxide BUN Creatinine Estimated GFR BUN/Creatinine Ratio Glucose Calcium Magnesium Total Bilirubin Conjugated Bilirubin Unconjugated Bilirubin AST ALT Alkaline Phosphatase Total Creatine Kinase CK-MB (CK-2) CK-MB (CK-2) Rel Index Troponin I Total Protein Albumin Globulin Albumin/Globulin Ratio Lipase Urine Color Yellow Urine Appearance Clear Urine pH 5.0 Ur Specific [place] <=1.005 Urine Protein Negative Urine Glucose (UA) 3+ H Urine Ketones Negative Urine Occult Blood Negative Urine Nitrate Negative Urine Bilirubin Negative Urine Urobilinogen 0.2 Ur Leukocyte Esterase Negative Urine RBC 0-1/hpf Urine WBC None seen Amorphous Sediment 1+ Urine Bacteria None seen Ur Culture Indicated? Cult not indicated Ethyl Alcohol SARS-CoV-2 (PCR) Negative 01/01/22 01/01/22 01/01/22 05:40 05:40 05:40 WBC 6.5 RBC 5.51 Hgb 16.7 Hct 48.4 MCV 87.7 MCH 30.2 MCHC 34.5 RDW 13.9 Plt Count 152 Neut % (Auto) 63.8 Lymph % (Auto) 25.1 [place] % (Auto) 9.4 Eos % (Auto) 1.4 L Baso % (Auto) 0.3 Neut # (Auto) 4200 Lymph # (Auto) 1600 [place] # (Auto) 600 Eos # (Auto) 100 Baso # (Auto) 0 D-Dimer Sodium 138 Potassium 4.4 Chloride 101 Carbon Dioxide 23 BUN 8 L Creatinine 0.77 Estimated GFR > 60 BUN/Creatinine Ratio 10.4 Glucose 320 H Calcium 8.9 Magnesium Total Bilirubin 0.8 Conjugated Bilirubin 0.0 Unconjugated Bilirubin 0.5 AST 74 H ALT 85 H Alkaline Phosphatase 136 H Total Creatine Kinase CK-MB (CK-2) CK-MB (CK-2) Rel Index Troponin I < 0.012 Total Protein 7.2 Albumin 4.2 Globulin 3.0 Albumin/Globulin Ratio 1.4 Lipase Urine Color Urine Appearance Urine pH Ur Specific [place] Urine Protein Urine Glucose (UA) Urine Ketones Urine Occult Blood Urine Nitrate Urine Bilirubin Urine Urobilinogen Ur Leukocyte Esterase Urine RBC Urine WBC Amorphous Sediment Urine Bacteria Ur Culture Indicated? Ethyl Alcohol SARS-CoV-2 (PCR) [facility] Medical History Coronary artery disease Diabetes type 2, uncontrolled Elevated blood alcohol level Surgical History H/O heart artery stent Family History Father Lung cancer Mother Medical history unknown Social History household members: significant other Smoking Status: Current every day smoker alcohol intake: former Assessment & Plan Assessment & Plan narrative: Mr. Mota is a 66M with PMH CAD, DM who presents with chest pain, back pain, abdominal pain. 1. Chest pain -patient has history of CAD s/p MA -no recent cardiac workup -continue to trend troponins -ordered aspirin/statin -nuc stress test showed old fixed infarct with nothing acute -echo with EF 45-50% 3. Type 2 Diabetes -patient not taking any medications -initial glucose >390 -start insulin sliding scale -a1c pending 4. Back pain -patient has chronic back pain from previous injury -now has lower extremity numbness, weakness, urinary retention, and question of incontinence -ordered for pain meds -MRI lumbar spine revealed no nerve impingement or stenosis -PT eval cleared for home 5. Lower extremity numbness -likely secondary to diabetic neuropathy -workup diabetes as above -MRI back normal 6. Urinary retention, acute -etiology likely BPH -ruled out spinal process with MRI -start flomax -remove eden and do voiding trial 7. Abdominal pain -lipase only mildly elevated -CT abdomen/pelviS without abnormality 8. Active smoker -encourage cessation 9. Possible alcohol abuse -patient denies alcohol abuse -has denied in past and had elevated etoh level -etoh level elevated at 200 -start CIWA 10. Transaminitis -question if patient uses alcohol -CT abd with IGNACIO of liver -trend daily -check hepatitis panel CODE: Full Proxy: Andie Vazquez, family I have utilized all available resources to reconcile the patient's home medications Dispo: Home 01/02. Time Spent With Patient Critical Care time: I spent a total of [] minutes of critical care time on this patient's care today; this time is exclusive of procedural time.
[2022-01-01] MEDS: LORazepam 2 MG/ML INJ 1 MG IV (08:23)
[2022-01-01] MEDS: ENOXAPARIN 40 MG/0.4 ML SYRINGE SUBCUT (10:34)
[2022-01-01] MEDS: SODIUM CHLORIDE 0.9% FLUSH 10 ML IV ×2 (10:34→20:50)
--- NOTE | 2022-01-01 10:51 | PT.IIE ---
Surgical History (Last Reviewed 01/01/22 @ 01:41 by Cullen Guadarrama DO) H/O heart artery stent Medical History (Last Reviewed 12/31/21 @ 21:52 by Clyde Chinchilla MD) Coronary artery disease Diabetes type 2, uncontrolled Elevated blood alcohol level Physical Therapy Inpatient Evaluation/Re-Eval M1 PT/OT-IP Prior Functional Status Start: 01/01/22 08:34 Freq: NEEDED Status: Active Protocol: Document 01/01/22 10:51 AW (Rec: 01/01/22 13:16 AW [id number]) Medical Review Prior Functional Status Medical History Reviewed Yes Communication Pt speaks German as a second language. He has some hearing loss but does not have hearing aids. He is able to make his needs known. Mobility and Gait Pt reports he has been falling more frequently lately. He uses a cane frequently. Activities of Daily Living and IADL's Independent with ADL's. Pt does not drive but his girlfriend does. Social History Household Members significant other Living Arrangements Apartment/Condo Number of Stairs To Enter/Railing? Pt lives in second floor apartment, has 25 steps with B rails. Home Environment Standard Height Toilet,Tub/ Shower Home Equipment Hand Held Shower Additional Social History Comment Pt lives with his girlfriend in [place]. M2 PT-IP Current Condition Start: 01/01/22 08:34 Freq: NEEDED Status: Active Protocol: Document 01/01/22 10:51 AW (Rec: 01/01/22 13:12 AW [id number]) Physical Therapy Current Condition Current Condition Evaluation Date 01/01/22 Treatment Diagnosis abdominal and chest pain; BLE weakness Onset Date 12/31/21 M3 PT-IP Subjective Start: 01/01/22 08:34 Freq: NEEDED Status: Active Protocol: Document 01/01/22 10:51 AW (Rec: 01/01/22 13:12 AW [id number]) Subjective Physical Therapy Visit Type Type Initial Evaluation Visit Start Time 10:30 Visit Stop Time 10:51 Total Visit Minutes 21 Notes Co-eval with OT Number of ADVISORY APPLICATION DEVELOPER Visits 0 Physical Therapy Visit Comments Patient Comments Pt is willing to participate with therapies Therapy Pain Assessment Pain When Pain Assessed At Rest Pain Present Pain Present Pain Reported Location Lower Abdomen Intensity 8 Scale Used Numeric (0 - 10) Upper Chest Intensity 8 Scale Used Numeric (0 - 10) M4 PT-IP Mobility and Gait Start: 01/01/22 08:34 Freq: NEEDED Status: Active Protocol: Document 01/01/22 10:51 AW (Rec: 01/01/22 13:12 AW [id number]) PT-Bed Mobility Assessment Supine to Sit Supine to Sit Independent Scooting Scooting to Edge of Bed Independent PT-Transfer Assessment Sit to and From Stand Sit to and from Stand Standby Assistance Equipment Transfer Assistive Device None,Gait Belt Orthotic/Prosthetic Devices or Brace: No Transfers Transfer Destination Chair,Toilet Transfer Technique pt ambulated with cane Transfer Ability Level of Assist Standby Assistance,Contact Guard Assistance Comments Mobility Comments Pt was lying in bed as PT and OT arrived. BP 172/90 HR 103. Pt completed supine to sit IND and stood SBA. He noted he has been feeling steadier with a cane. Pt was able to stand step pivot transfer to the chair SBA without cane. With cane, pt stood again and walked to the sink. He had increased sway during grooming tasks at the sink but needed no more than SBA. He walked to the toilet and transferred with use of the grab bar CGA. He stood and walked 180 feet in the halls with SPC SBA/CGA. On return to the room, he sat on the chair and agreed to call for all mobility related needs. Gait Assessment Gait Gait Assistance Required: Standby Assistance,Contact Guard Assist Distance (Feet) 180 Assistive Devices Assistive Device Gait Belt,Straight Cane Orthotic/Prosthetic Devices or Brace: No Gait Deviations General Gait Pattern Decreased Feet Clearance,Step- to Gait Factors Limiting Gait Function Factors Limiting Gait Function Decreased Strength,Poor Balance Comments Gait Comments SBA 100 feet, CGA last 80 feet . Stair Climbing Assessment Comments Stair Climbing Comments Pt declined stair assessment today, stating he felt too weak and unsteady. PT-Balance Assessment Sitting Balance and Reactions Static Sitting Balance Ability Good Dynamic Sitting Balance Ability Good Standing Balance and Reactions Static Standing Balance Ability Fair Dynamic Standing Balance Ability Fair Device Used SPC M5 PT-IP Objective Assessments Start: 01/01/22 08:34 Freq: NEEDED Status: Active Protocol: Document 01/01/22 10:51 AW (Rec: 01/01/22 13:12 AW [id number]) Orientation Orientation/Cognition Level of Alertness Alert Orientation Name,Date,Place,Situation Language Function Ability German as Second Language, Hard of Hearing Safety Awareness Understands Safety Issues Gross Range of Motion Lower Extremity ROM Assessment Within Functional Limits Strength Lower Extremity Strength Assessment Bilaterally Impaired Hip 4/5 Knee 5/5 Ankle 4+/5 Sensation Assessment Sensation Gross Sensation Right LE Impaired,Left LE Impaired Light Touch Impaired Comments Sensation Comments Dull light touch sensation in bilateral feet and up to mid- thigh. M6 PT-IP Treatment Start: 01/01/22 08:34 Freq: NEEDED Status: Active Protocol: Document 01/01/22 10:51 AW (Rec: 01/01/22 13:12 AW [id number]) Physical Therapy Treatment Education Education Provided Safety M7 PT-IP Assessment and Plan Start: 01/01/22 08:34 Freq: NEEDED Status: Active Protocol: Document 01/01/22 10:51 AW (Rec: 01/01/22 13:12 AW [id number]) PT Summary Assessment and Plan Potential Rehabilitation Potential Good Status of Condition at Evaluation Evolving Summary Impairments Pain,Strength,Balance, Sensation,Transfers,Gait Assessment Summary Rahul is a 66 yo man admitted with abdominal and chest pain . He reports BLE weakness which has led to multiple falls recently. At baseline, pt walks with a cane and manages his own ADL's. He notes chronic LE numbness. On assessment, pt has no focal weakness, light touch sensation is impaired in both legs, and he is able to ambulate 180 feet with SPC and SBA up to CGA with increased distance. Pt refused stairs assessment today, reporting he feels too weak. Pt is likely near his functional baseline. PT feels he will be safe to discharge home with assist once medically stable. He should be assessed on stairs prior to discharge as he has 25 steps with bilateral rails to his second floor apartment. Pt may well benefit from outpatient PT to address strength and balance. Goals Bed Mobility Goal Independent Transfer Goal Independent,Cane Gait Goal Independent,Cane Gait Distance 300 Other Goals - up/down 25 steps with B rails SBA Frequency of Treatment Frequency Of Treatment Once a Day Treatment Plan Physical Therapy Treatment Plan Bed Mobility Training,Transfer Training,Gait Training, Therapeutic Exercise,Balance Retraining,Discharge Planning, Hot or Cold Pack,Neuromuscular Re-ed Other Recommendations and Next Treatment progress gait distance with Focus cane; stairs Precautions Other Precautions falls Recommendations To Nursing Amount of Assist Needed 1 Person Assist Discharge Recommendations PT Discharge Recommendations Home with Assistance, Outpatient PT Transportation Needs at Discharge Private Vehicle
--- NOTE | 2022-01-01 10:52 | OT.IP.EVAL ---
Past Medical History (Last Reviewed 12/31/21 @ 21:52 by Clyde Chinchilla MD) Coronary artery disease Diabetes type 2, uncontrolled Elevated blood alcohol level Surgical History (Last Reviewed 01/01/22 @ 01:41 by Cullen Guadarrama DO) H/O heart artery stent Occupational Therapy Inpatient Evaluation/Re-Eval M1 PT/OT-IP Prior Functional Status Start: 01/01/22 08:34 Freq: NEEDED Status: Active Protocol: Document 01/01/22 14:11 CGR (Rec: 01/01/22 14:21 CGR [id number]) Medical Review Prior Functional Status Medical History Reviewed Yes Communication Pt speaks [place] as a second language. He has some hearing loss but does not have hearing aids. He is able to make his needs known. Mobility and Gait Pt reports he has been falling more frequently lately. He uses a cane frequently. Activities of Daily Living and IADL's Independent with ADL's. Pt does not drive but his girlfriend does. Social History Household Members significant other Living Arrangements Apartment/Condo Number of Stairs To Enter/Railing? Pt lives in second floor apartment, has 25 steps with B rails. Home Environment Standard Height Toilet,Tub/ Shower Home Equipment Hand Held Shower Additional Social History Comment Pt lives with his girlfriend in [place]. M1 PT/OT-IP Prior Functional Status Start: 01/01/22 14:11 Freq: NEEDED Status: Active Protocol: Document 01/01/22 14:11 CGR (Rec: 01/01/22 14:21 CGR [id number]) Medical Review Prior Functional Status Medical History Reviewed Yes Communication Pt speaks [place] as a second language. He has some hearing loss but does not have hearing aids. He is able to make his needs known. Mobility and Gait Pt reports he has been falling more frequently lately. He uses a cane frequently. Activities of Daily Living and IADL's Independent with ADL's. Pt does not drive but his girlfriend does. Social History Household Members significant other Living Arrangements Apartment/Condo Number of Stairs To Enter/Railing? Pt lives in second floor apartment, has 25 steps with B rails. Home Environment Standard Height Toilet,Tub/ Shower Home Equipment Hand Held Shower Additional Social History Comment Pt lives with his girlfriend in [place]. M2 OT-IP Current Condition Start: 01/01/22 14:11 Freq: Status: Active Protocol: Document 01/01/22 14:11 CGR (Rec: 01/01/22 14:21 CGR [id number]) Occupational Therapy Current Condition Current Condition Evaluation Date 01/01/22 Treatment Diagnosis chest pain, alcohol 225 at admit. Diagnosis Onset Date 12/31/21 M3 OT- IP Subjective and Pain Start: 01/01/22 14:11 Freq: Status: Active Protocol: Document 01/01/22 14:11 CGR (Rec: 01/01/22 14:21 CGR [id number]) OT- Subjective Occupational Therapy Visit Type Type Initial Evaluation Visit Start Time 10:25 Visit Stop Time 10:52 Total Visit Minutes 27 Notes co-treat with p.t. OT Pain Assessment Pain When Pain Assessed At Rest Pain Present Pain Present Pain Reported Location Lower Abdomen Intensity 8 Scale Used Numeric (0 - 10) Management Techniques Modification of Treatment,Re- positioning M4 OT- IP ADL's Start: 01/01/22 14:11 Freq: Status: Active Protocol: Document 01/01/22 14:11 CGR (Rec: 01/01/22 14:21 CGR [id number]) OT [id number]-Ocearcw Comments OT Self-Feeding Comments not meal time OT ADL-Grooming General Evaluation Grooming Ability Independent Areas Needing Assistance Face Washing Comments OT Grooming Comments standing at sink OT ADL-Oral Care General Eval Oral Care Ability Independent Areas of Assistance Brushing Teeth Comments Oral Care Comments standing at sink OT ADL-Dressing General Eval Lower Body Dressing Ability Independent Areas Needing Assistance Socks Comments OT Dressing Comments seated EOB OT ADL-Toileting General Evaluation Toileting Ability Independent Comments OT Toileting Comments simulated seated on toielt, pt with eden at time of eval OT ADL-Bathing Comments OT Bathing Comments not performed M5 OT- IP IADL's Start: 01/01/22 14:11 Freq: Status: Active Protocol: Document 01/01/22 14:11 CGR (Rec: 01/01/22 14:21 CGR [id number]) OT-Instrumental Activities of Daily Living Home Safety Awareness Awareness of Need for Assistance at Home Good Awareness Ability to Problem Solve Emergency Able to Problem Solve Situations Medication Management Medication Management No Deficits Identified Money Management Money Management No Deficits Identified Meal Preparation Meal Preparation Caregiver Provides Assist Bulk Clerk Bulk Clerk Caregiver Provides Assist Driving Driving Comments Pt does not drive but GF drives M6 OT- IP Functional Cognition Start: 01/01/22 14:11 Freq: Status: Active Protocol: Document 01/01/22 14:11 CGR (Rec: 01/01/22 14:21 CGR [id number]) Cognitive Factors Limiting Selfcare Function Cognitive Ability Level of Alertness Alert Patient Orientation Name,Age,Birthday,Month,Date, Year,Day of Week,Place, Situation Attention Span Ability Capable of Focused Attention, Capable of Sustained Attention Ability to Follow Commands Able to Follow One Step Commands with Increased Time, Able to Follow One Step Commands with Repetition OT- Vision and Hearing OT- Hearing Assessment OT- Hearing Assessment Hearing Impaired OT- Vision Assessment Visual Attentiveness WFL Occular Pursuits WFL Visual Convergence WFL M7 OT- IP Mobility and Balance Start: 01/01/22 14:11 Freq: Status: Active Protocol: Document 01/01/22 14:11 CGR (Rec: 01/01/22 14:21 CGR [id number]) OT- Bed Mobility Assessment Supine to Sit Supine to Sit Assist Standby Assistance Scooting Scooting to Edge of Bed Standby Assistance OT-Transfer Assessment Sit to and From Stand Sit to and from Stand Standby Assistance Transfers Transfer Ability Standby Assistance Technique Transfer Destination Bed,Chair,Toilet Transfer Technique Stand Step Pivot Devices Transfer Assistive Devices Gait Belt,Straight Cane Comments Mobility Comments Pt ambulated around the room and into the hallway. Pt decliend to perform stairs on this date. OT- Gait Assessment Gait Gait Assistance Required: Standby Assistance Assistive Devices Assistive Device Gait Belt,Straight Cane OT- Balance Assessment Sitting Balance and Reactions Static Sitting Balance Ability Normal Dynamic Sitting Balance Ability Good M8 OT- IP Objective Assessments Start: 01/01/22 14:11 Freq: Status: Active Protocol: Document 01/01/22 14:11 CGR (Rec: 01/01/22 14:21 R [id number]) OT Gross Range of Motion Upper Extremity Range of Motion Assessment Within Functional Limits OT Strength Upper Extremity Strength Assessment Within Functional Limits Comments Strength Comments 4/5 OT- Coordination Assessment Upper Extremity Finger to Nose Test Within Functional Limits Finger Tapping Test Within Functional Limits Comments Coordination Comments with extra time OT-Muscle Tone Assessment Muscle Tone WNL Yes OT Sensation Assessment Edema Edema Absent M9 OT- IP Assessment and Plan Start: 01/01/22 14:11 Freq: Status: Active Protocol: Document 01/01/22 14:11 CGR (Rec: 01/01/22 14:21 CGR [id number]) OT Summary Assessment and Plan Potential Rehabilitation Potential Good Analytic Complexity at Evaluation Low Summary OT Impairments Pain,Balance,Activity Tolerance Progress Towards Goals Progressing Toward Goals,Goals Met Assessment Summary Pt presents as a low complexity evaluation s/p admit for chest pain and alcohol of 225 at admit. Pt appears to be at baseline for his ADLs. No further OT needs. Frequency of Treatment Frequency Of Treatment Discharge Discharge Recommendations OT Discharge Recommendations Home with Assistance Transportation Needs at Discharge Private Vehicle
--- NOTE | 2022-01-01 13:31 | CM.DANOTE ---
Patient is a 66 yo male who was admitted on 12/31/21 for Chest pain. Pt has [facility] and [facility] for insurance and his PCP is not listed. EMR was reviewed. Per MD, pt with hx of currently smoking, pain issues, diabetes and admitted for trops, NSTEMI, and chest pain r/o. Pt to have MRI, Echo, and nuc stress test today at 1130 and then possible d/c home pending results. Per PT/OT, recommending safe d/c home with Sig Other and outpt PT. Pt was last admitted in July 2020 and was able to d/c home with no needs. SW met bedsided with pt and explained role. Patient is originally from [facility]. He resides in [place] with his significant other, Brianna who provides transport and assist if needed. They live in a second floor apt with stairs and pt uses his cane for ambulation with increased falls. Pt denies any concerns or need for resources for ETOH as he admits to drinking a couple drinks a day. Pt's UDS was positive for ETOH of 225. Pt is hopeful to d/c home today pending stress test results and does not anticipate any needs at this time. Plan: SW to follow for stress test results towards likely d/c home via POV later today and any further identified discharge planning needs. WILFREDO Moreno Discharge Planning/Care Management CM Discharge Assessment Start: 01/01/22 13:29 Freq: Status: Active Protocol: Document 01/01/22 13:29 BF (Rec: 01/01/22 13:31 BF [id number]) Discharge Planning Assessment Assigned Diamond Selector WILFREDO Horan DPOA/Assigned Designee Name sig other Brianna informally Advance Directives? No Advance Directives on File No History Provided By Patient,Medical Record Has Patient been admitted in last 30 No days? Prior Living Arrangements Apartment/Condo Household Members significant other Type of transporation used prior to Relies on Others admit Comment girlfriend typically drives Independent with ADL's Yes Is patient alert and oriented? Yes Needs Assistance With Meal Prep,Managing Medications ,Home Chores / Shopping Caregiver for Another No DME Already Rented / Owned Cane Patient/Family Preference OP PT Therapy Barriers to Discharge No Discharge Plan Home Community Services Physical Therapy Transportation Arrangement likely sig other can transport vs taxi Referrals Initiated None needed Whiteboard Updated in Patient Room with Yes name and ext. # of Diamond Selector Review Status In Process Please Provide Date Initial DC 01/01/22 Assessment Was Performed Next Review Type Continued Stay Review
--- NOTE | 2022-01-01 17:22 | PC.NURSE ---
Patient reports he is feeling better, he would like to try taking the catheter out to try to urinate on his own tonight. Urinal placed within reach and patient instructed to use urinal for measuring so we can monitor. Patient tolerating dinner. Call light within reach.
[2022-01-01] MEDS: TAMSULOSIN 0.4 MG CAPSULE PO ×2 (18:47→20:50)
[2022-01-01 18:58] LABS: Hemoglobin A1C% w Est Avg Glu 8.1 % (4.0-6.0)
[2022-01-01] MEDS: MAGNESIUM SULFATE 2 GM/50 ML PIGGYBACK IV (19:01)
[2022-01-01] MEDS: ATORVASTATIN 20 MG TABLET 40 MG PO (20:50)
--- NOTE | 2022-01-01 23:18 | PC.NURSE ---
pt AOx4 but responds with yes to most questions and staff has to rephrase many things for understanding. Unknown if this is d/t education, language, understanding of care. Pt states passed out 3 months ago and didnt call 911. Rn educated importance of taking care of self when d/c. Pt c/o back pain being 6/10, medicated w/ tramadol. Pt cooperative w/ care and staff.
[2022-01-02] VITALS: BP 129/82; PULSE 75; RESP 18; TEMP 36.9; O2SAT 94
[2022-01-02 06:10] VITALS: BP 133/77; PULSE 54; RESP 16; TEMP 36.7; O2SAT 95
[2022-01-02] MEDS: TRAMADOL 50 MG TABLET PO ×2 (06:34→11:48)
[2022-01-02 07:11] LABS: Alanine Aminotransferase 73 IU/L (<50); Albumin 3.8 g/dL (3.5-5.0); Albumin Globulin Ratio 1.5 (1.0-2.8); Alkaline Phosphatase 125 U/L (38-126); Aspartate Aminotransferase 59 IU/L (17-59); BUN Creatinine Ratio 22.2 (6-22); Blood Urea Nitrogen 12 mg/dL (9-20); Calcium 8.5 mg/dL (8.4-10.2); Carbon Dioxide 26 mmol/L (22-32); Chloride 97 mmol/L (98-107); Estimated Glomerular Filt Rate > 60 mL/min (>60); Globulin 2.5 g/dL (1.7-4.1); Glucose 264 mg/dL (80-110); HEMOLYSIS 19 (0-50); Magnesium 1.8 mg/dL (1.6-2.3); Sodium 132 mmol/L (137-145); Total Protein 6.3 g/dL (6.3-8.2)
[2022-01-02 07:26] VITALS: BP 135/69; PULSE 78; RESP 18; TEMP 36.3; O2SAT 95
[2022-01-02 07:41] LABS: TSH w/ Reflex to FT4 3.18 uIU/mL (0.47-4.68)
[2022-01-02] MEDS: INSULIN LISPRO 100 UNIT/ML 3ML VIAL SUBCUT (08:34)
[2022-01-02] MEDS: MULTIVITAMIN 1 TABLET 1 TAB PO (09:03)
[2022-01-02] MEDS: FOLIC ACID 1 MG TABLET PO (09:03)
[2022-01-02] MEDS: THIAMINE 100 MG TABLET PO (09:03)
[2022-01-02] MEDS: ENOXAPARIN 40 MG/0.4 ML SYRINGE SUBCUT (09:04)
[2022-01-02] MEDS: SODIUM CHLORIDE 0.9% FLUSH 10 ML IV (09:05)
--- NOTE | 2022-01-02 09:52 | CM.DPNOTE ---
Spoke to Aj at [employer] transport at 0938. He did receive our form. He passed this on to their staff member, Suni, who should be calling me to confirm burr picker time. Ann Marie Reyes CM Assist.
--- NOTE | 2022-01-02 10:51 | DIET.CONS ---
Dietary Consultation Note Admission Date: 12/31/2021 20:16 Assessment: 66y ESL M admitted with chronic back pain and leg numbness thought to be result of DM neuropathy referred to nutrition for DM education. Pt states he does not have PCP, barriers to care include no license or vehicle, however pt does have medicaid transport benefits. Pt states he loves drinking V8 vegetable juice and usually has small glass caterina juice daily. Pt with etoh use. Ht: 172.72 cm Wt: 81.647 kg BMI: 27.3 Last BM: 01/01/22 (01/01/22 05:29) MNA: 12 Abdelrahman Score: 19 Diet: 12/31/21 Breakfast Heart Healthy Diet Diet Modifications: 01/02/22 Lunch Carbohydrate Consistent Diet Diet Modifications: heart healthy Carbohydrate level: Medium (3 CHO) Labs: RBC 5.51 X10^6/uL (4.5-5.9) 01/01/22 05:40 Hgb 16.7 g/dL (13.5-17.5) 01/01/22 05:40 Hct 48.4 % (41-53) 01/01/22 05:40 Creatinine 0.54 mg/dL (0.66-1.25) L 01/02/22 05:00 Hemoglobin A1c 8.1 % (4.0-6.0) H 01/01/22 05:40 Nutrition Diagnosis: altered nutrition related laboratory values (BG, A1c) r/t nutrition related knowledge deficit and lack of medical care aeb pt with BGs in 200-300 range while hospitalized and A1c >8 with no DM agents prescribed, no PCP and no prior DM ed. Interventions: 1. Discussed limiting caterina juice to no more than 4oz daily. 2. Strongly encouraged pt to initiate relationship with PCP for medical management of DM as well as referral to [facility] DS[facility] which will be covered by pts insurance whether in person or virtually. Electronically Signed by: Latha Vázquez 01/02/22 10:51 Clinical Dietitian [address] [address]
--- NOTE | 2022-01-02 11:51 | PC.NURSE ---
Patient d/c home, escorted downstairs via wheelchair for taxi ride. RX that was printed out was also faxed to [facility] pharmacy by coordinator. Patient teaching done at bedside with patient. Patient states understanding that he needs to establish with a provider in order to cont. getting refills on new perscripts written to him. Patient left in stable condition, VSS. Medicated with Tramadol prior to d/c. IV and tele monitor removed, pt. kobe. well.
--- NOTE | 2022-01-02 11:57 | P.DS_ITS ---
History of Present Illness History of Present Illness Date Patient Seen: 01/02/22 Time Patient Seen: 08:00 Chief complaint: Bilateral LE, pelvis and chest wall pain Narrative: Mr. Mota is a 66M with PMH CAD s/p CA, DM, active tobacco smoker who presents with multiple complaints. He has a history of CAD s/p CA in 2012. He takes no medications currently and does not follow up with any physician or PCP. He also has had chronic back pain after an injury decades ago and has significant mobility issues. He comes in to the hospital today with complaints of chest pa in. This has been going on a couple days. He thought it was possibly heartburn. It is pressure like pain in a band across his chest, with some associated shortness of breath. No cough/fevers. He also complains of chronic low back pain, which is now radiating to his legs. He has had chronic lower extremity numbness, and may have had an episode of incontinence in the past. He also is complaining of generalized abdominal pain with no nausea, vomiting, or diarrhea. In the ED workup was done, vitals notable for heart rate in the 120s, respiratory rate in the 20s. Labs notable for WBC 6.5, hgb 16.8, plts 155. Creatinine 0.71. Glucose 390. Lipase 648. AST/ALT 91/90. UA negative. Chest xray with no acute process. EKG shows no acute ischemia. He was ordered for pain medications and admitted for further treatment. Discharge Providers Provider Date of admission: 12/31/21 20:16 Discharge Date: 01/02/22 Primary care physician: Doctor Emmanuel MD Consults: 12/31/21 21:24 Consult to Dietitian, Adult Urgent Comment: Reason For Exam: diabetes Consult to Physical Therapy Evaluate & Treat Comment: Physician Instructions: Evaluate and Treat 01/01/22 07:52 Consult to Occupational Therapy Evaluate & Treat Comment: Physician Instructions: Evaluate and treat Discharge provider: Omero David DO Summary Hospital Course Discharge Diagnosis: 1. Chest pain -patient has history of CAD s/p CA -no recent cardiac workup -continue to trend troponins -ordered aspirin/statin -nuc stress test showed old fixed infarct with nothing acute -echo with EF 45-50% but no focal WMA's -discharged on metoprolol, lipitor, aspirin, and losartan 3. Type 2 Diabetes -patient not taking any medications -initial glucose >390 -given insulin sliding scale -a1c 8.1% -discharged on metformin 4. Back pain -patient has chronic back pain from previous injury -now has lower extremity numbness, weakness, urinary retention, and question of incontinence -ordered for pain meds -MRI lumbar spine revealed no nerve impingement or stenosis -PT eval cleared for home 5. Lower extremity numbness -likely secondary to diabetic neuropathy -workup diabetes as above -MRI back normal 6. Urinary retention, acute -etiology likely BPH -ruled out spinal process with MRI -start flomax -able to urinate after removing eden 7. Abdominal pain -lipase only mildly elevated -CT abdomen/pelviS without abnormality 8. Active smoker -encourage cessation 9. Possible alcohol abuse -patient denies alcohol abuse -has denied in past and had elevated etoh level -etoh level elevated at 200 -start CIWA 10. Transaminitis -question if patient uses alcohol -CT abd with IGNACIO of liver -trend daily -hepatitis panel pending Hospital Course: Admitted for several complaints including chest pain, abd pain, and LE weakness. Underwent stress test which showed old fixed infarct but nothing new. Echo with EF 45-50% and no focal WMA's. Lumbar MRI showed no cord compression or stenosis. Initially found to have urinary retention with 1L of urine in bladder, and eden placed. Started on flomax and able to remove eden and void normally. He was discharged back on meds for his diabetes given A1c 8.1%, and his heart meds to include aspirin, lipitor, metoprolol, and losartan. He will obtain new PCP at [facility] residency clinic for cardiology referral and ongoing diabetes management. Time Spent with Patient Time spent: Greater than 30 minutes Exam Vital Signs (past 8 hours): - 01/02/22 06:10 01/02/22 07:26 01/02/22 08:00 Temperature 98.1 F 97.3 F L Pulse Rate 54 L 78 Respiratory Rate 16 18 Blood Pressure 133/77 135/69 Pulse Oximetry 95 95 Oxygen Delivery Method Room Air Oxygen Flow Rate 0 0 Oxygen Delivery Method Room Air Oxygen Flow Rate 0 Narrative Exam Narrative: GEN: comfortable HEENT: moist mucous membranes, PERRL NECK: trachea midline, no JVD PULM: clear bilaterally, no wheezes, rhonchi, rales CV: regular rate and rhythm, no murmurs, reproducible chest pain on palpation ABD: soft, tender to palpation, no rebound/guarding, no organomegaly, normal bowel sounds EXT: warm and well perfused with no edema SKIN: petechia in lower extremities NEURO: awake, alert oriented, lower extremity numbness present, strength 4/5 in LE's Objective Labs Result Diagrams: 01/01/22 05:40 01/02/22 05:00 Labs: Laboratory Results - last 24 hr 01/01/22 01/02/22 01/02/22 05:40 05:00 05:00 Sodium 132 L Potassium 4.0 Chloride 97 L Carbon Dioxide 26 BUN 12 Creatinine 0.54 L Estimated GFR > 60 BUN/Creatinine Ratio 22.2 H Glucose 264 H Hemoglobin A1c 8.1 H Calcium 8.5 Magnesium 1.8 Total Bilirubin 1.0 AST 59 ALT 73 H Alkaline Phosphatase 125 Total Protein 6.3 Albumin 3.8 Globulin 2.5 Albumin/Globulin Ratio 1.5 TSH 3.18 PFSH Medical History Coronary artery disease Diabetes type 2, uncontrolled Elevated blood alcohol level Surgical History H/O heart artery stent Family History Father Lung cancer Mother Medical history unknown Social History household members: significant other Smoking Status: Current every day smoker alcohol intake: former Discharge Plan Discharge Plan Patient Disposition: Home Provider Discharge Comment: You had several tests including MRI back, stress test and echo of your heart which all did not show any evidence of new changes. Physical therapy cleared you for home. I've placed you on a medication to help you urinate called flomax. Take it nightly. Discharge orders & Medications Prescriptions: New tamsulosin [Flomax] 0.4 mg Capsule 0.4 mg PO BEDTIME Qty: 90 0RF losartan 25 mg tablet 25 mg PO DAILY Qty: 90 0RF aspirin 81 mg Tablet,Delayed Release (Dr/Ec) 81 mg PO DAILY Qty: 9 0RF Continued naproxen sodium [Aleve] 220 mg Capsule 220 mg PO BID atorvastatin [Lipitor] 40 mg tablet 40 mg PO DAILY Qty: 90 0RF metformin 500 mg tablet 500 mg PO BID Qty: 180 0RF metoprolol succinate 25 mg tablet extended release 24 hr 25 mg PO DAILY Qty: 90 0RF oxycodone 5 mg tablet 5 mg PO Q8HR PRN (Reason: Pain.) Qty: 20 0RF Label Comments: 5 MG PO Q8HR As Needed for Pain fenofibrate micronized 134 mg capsule 134 mg PO DAILY Label Comments: took it 4 weeks ago. pantoprazole tablet 40 mg PO BID Qty: 0 0RF Discontinued Aspirin Child tablet 81 mg PO DAILY Medication counseling provided by Pharmacist: Yes Follow up/Referrals: Doctor Emmanuel, [Primary Care Provider] - Visit Report/Discharge Packet Instructions: Heart-Healthy Diet, DI for Atypical Chest Pain, DI for Urinary Retention in Men, Losartan, Tamsulosin Discharge Data Primary Care Provider: Doctor Emamnuel Attending Provider: Clyde Chinchilla
--- NOTE | 2022-01-02 12:11 | CM.DPC ---
DCP/continued: Received notification from provider that patient medically stable for discharge today. Met with patient and he reports that he has no transportation home. Patient also does not have financial means to cover taxi. OPERATING SYSTEM PROGRAMMER completed Medicaid transport form and ANDERS/Ann Marie faxed. Received return phone call from the state indicating that patient does not have transport benefit. Therefore, OPERATING SYSTEM PROGRAMMER completed cab voucher for patient to return to [facility] cost is approximately $50.00. Patient provided with cab voucher and name/number of clinic for outpatient f/u in [place]. No additional needs identified. P: Home today. Patient in need of cab voucher and community resources. TIFFANY
[2022-01-03 00:07] LABS: HBsAg Screen Negative (Negative); Hepatitis A Antibody IgM Negative (Negative); Hepatitis B Core Antibody IgM Negative (Negative); Hepatitis C Antibody <0.1 s/co ratio (0.0-0.9)
== END 2022-01-02 11:50 | disposition home or self-care (01) ==
LOC: ED 20:16 → AC 20:16
PROVIDERS: Student in an Organized Health Care Education/Training Program; Admitting Provider Internal Medicine; Emergency Provider Emergency Medicine; Referring Provider Emergency Medicine; Visit Provider Internal Medicine
DX: R07.9 Chest pain, unspecified (principal); R10.9 Unspecified abdominal pain; M54.50 Low back pain, unspecified; R20.0 Anesthesia of skin; I25.10 Atherosclerotic heart disease of native coronary artery without angina pectoris; E11.9 Type 2 diabetes mellitus without complications; R33.9 Retention of urine, unspecified; R74.01 Elevation of levels of liver transaminase levels; I25.2 Old myocardial infarction; R78.0 Finding of alcohol in blood; Y90.7 Blood alcohol level of 200-239 mg/100 ml; Z79.84 Long term (current) use of oral hypoglycemic drugs; F17.210 Nicotine dependence, cigarettes, uncomplicated; Z20.822 Contact with and (suspected) exposure to COVID-19
CPT/HCPCS: 36415; 51798; 71045; 71275; 72158; 74177; 78452; 80048; 80053; 80074; 80076; 80320; 81001; 82550; 82962; 83036; 83690; 83735; 84443; 84484; 85025; 85379; 87635; 93005; 93017; 93306; 96361; 96372; 96374; 96375; 97162; 97165; 97535; 99284; C9803; G0378; A9502; J1170; J1650; J1815; J2060; J2270; J2405; J2785; J3475; Q9967

== ENCOUNTER 2022-02-02 18:54 | Emergency (ER) | payer MEDICARE, MEDICAID, SELFPAY ==
[2022-02-02] VITALS (15 sets, daily range): BP systolic 97–137; BP diastolic 60–73; PULSE 79–93; RESP 12–19; TEMP 36.8; O2SAT 92–97; BMI 27.3
--- NOTE | 2022-02-02 18:58 | ED_ITS ---
HPI - Chest Pain General Chief Complaint: Chest Pain Stated Complaint: Chest pain Time Seen by Provider: 02/02/22 18:56 Source: patient, EMS, RN notes reviewed and old records reviewed Mode of arrival: EMS Limitations: no limitations History of Present Illness HPI narrative: This is a 66-year-old male with complaint of chest, low back pain that radiates down his legs. Patient states the chest pain has been present for the last 4-6 hours. He states no diaphoresis, no shortness of breath, no nausea or vomiting he states it is sort of across his chest. He denies radiation elsewhere but does have low back pain which radiates particularly down his left leg and states he has paresthesias down his left legs. He states it is quite painful he states sometimes he has weakness in that leg but not currently. He denies fevers, cold cough or congestion. He denies any bladder or fecal incontinence. Patient stat es he had aspirin, nitro sublingual x3 and morphine EN route with EMS and that it changed nothing about his chest pain or his back pain. 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 Patient does note that he was restarted on his medications unclear if he is taking them daily states that he is not any pain medication for his back but used to be on oxycodone 10 mg and that was helpful. States his only surgeries or for his low back in 1992. No known drug allergies. He does use tobacco and smokes a quarter to a 3rd pack daily, occasional alcohol, no illicit. He has not established with a primary care. Related Data Home Medications Medication Instructions Recorded Confirmed fenofibrate micronized 134 mg 134 mg PO DAILY 08/06/20 08/06/20 capsule naproxen sodium 220 mg capsule 220 mg PO BID 12/31/21 12/31/21 (Aleve) Previous Rx's Medication Instructions Recorded pantoprazole 40 mg PO BID ##0 08/06/20 aspirin 81 mg tablet,delayed 81 mg PO DAILY #9 tabs 01/02/22 release atorvastatin 40 mg tablet (Lipitor) 40 mg PO DAILY #90 tabs 01/02/22 losartan 25 mg tablet 25 mg PO DAILY #90 tabs 01/02/22 metformin 500 mg tablet 500 mg PO BID #180 tabs 01/02/22 metoprolol succinate 25 mg 25 mg PO DAILY #90 tabs 01/02/22 tablet,extended release 24 hr oxycodone 5 mg tablet 5 mg PO Q8HR PRN Pain. #20 tabs 01/02/22 tamsulosin 0.4 mg capsule (Flomax) 0.4 mg PO BEDTIME #90 caps 01/02/22 oxycodone 5 mg tablet 5 mg PO Q6H PRN pain #10 tabs 02/03/22 prednisone 20 mg tablet 40 mg PO DAILY #10 tabs 02/03/22 Allergies Allergy/AdvReac Type Severity Reaction Status Date / Time No Known Drug Allergies Allergy Verified 08/05/20 23:10 Review of Systems Review of Systems ROS Unobtainable: All systems reviewed & are unremarkable except as noted in HPI and below Patient History Medical History Coronary artery disease Diabetes type 2, uncontrolled Elevated blood alcohol level Surgical History H/O heart artery stent Family History Father Lung cancer Mother Medical history unknown Social History household members: significant other Smoking Status: Current every day smoker alcohol intake: former Smoking Status: Current every day smoker Substance Use Type: does not use Exam Narrative Exam Narrative: GENERAL: Alert and oriented x three, male in mild distress HEENT: Head normocephalic, atraumatic, EOMI, pupils reactive, face symmetric, moist mucous membranes NECK: Supple, full range of motion CARDIOVASCULAR: Regular rate and rhythm without murmurs, rubs or gallops. RESPIRATORY: Breath sounds equal bilaterally, no wheezes rales or rhonchi. ABDOMEN: Soft, nontender. Normoactive bowel sounds all 4 quadrants. No guarding or rebound, rigidity, no mass : No CVA tenderness BACK: No cervical, thoracic or lumbar vertebral point tenderness. Patient has decreased range of motion. Patient has pain and discomfort particularly in the left lower abdomen. Patient's gait is not tested initially. Rectal exam is [normal sphincter tone/decreased tone/no tone/deferred or refused]. Patient has difficulty with dorsiflexion on the left foot. He endorses difficulty with movement of the left leg but can adjust himself in the bed without issue. DTRs are 2/4 and lower extremities. Dorsalis pedis and tibialis pulses are 2+ and lower extremities. Sensation is intact in the lower extremities. EXTREMITIES: Normal range of motion, no clubbing or edema. Neurovascularly intact NEUROLOGICAL: Cranial nerves II through XII grossly intact. Moving all extremities SKIN: Warm, dry, no petechiae, no rashes or lesions. Initial Vital Signs Initial Vital Signs: Vital Signs Pulse Rate 91 H 02/02/22 18:59 Respiratory Rate 19 02/02/22 18:59 Pulse Oximetry 95 02/02/22 18:59 Course Orders Ordered: ED Orders 02/02/22 21:00 Trop I [Troponin I] Stat 02/02/22 23:30 Trop I [Troponin I] Stat 02/02/22 23:38 EKG-12 Lead Stat Discontinued Medications Oxycodone HCl (Oxycodone Ir 5 Mg Tablet) 10 mg PO NOW ONE Stop: 02/02/22 19:40 Last Admin: 02/02/22 20:00 Dose: 10 mg Documented By: TUSHAR Oxycodone HCl (Oxycodone Ir 10 Mg Tablet) 10 mg PO Q6HR PRN PRN Reason: Pain, Severe (7-10) Last Admin: 02/03/22 00:49 Dose: 10 mg Documented By: JAMEY Prednisone (Prednisone 20 Mg Tablet) 40 mg PO NOW ONE Stop: 02/03/22 00:36 Last Admin: 02/03/22 00:48 Dose: 40 mg Documented By: JAMEY Consultations Consultation #1: Dr. Alvarez, orthopedic surgery. Reviewed patient's MRI from January 01, 2022 his current findings today, at this time he states nonsurgical does not require emergent treatment. He would recommend oral steroids for pain. From spinal perspective patient can be DC home and does not require being seen in the hospital. Time: 20:03 Consultation #2: Dr. Matthews, cardiology recommends repeat 4 hour troponin from initial if still and negative range feels patient is appropriate to discharge from a cardiac standpoint. Review patient's ST changes today. His myocardial perfusion stress from prior hospitalization Time: 22:21 Vital Signs Vital signs: Vital Signs - 8 hr 02/02/22 21:30 02/02/22 21:30 02/02/22 22:00 Pulse Rate 81 Respiratory Rate 15 Blood Pressure 109/60 109/60 Pulse Oximetry 94 02/02/22 22:00 02/02/22 22:30 02/02/22 22:30 Pulse Rate 81 82 Respiratory Rate 16 15 Blood Pressure 97/61 Pulse Oximetry 94 94 02/02/22 23:00 02/02/22 23:00 02/02/22 23:30 Pulse Rate 79 Respiratory Rate 13 Blood Pressure 108/65 137/72 Pulse Oximetry 95 02/02/22 23:30 02/02/22 23:59 02/03/22 00:00 Pulse Rate 81 83 Respiratory Rate 13 13 Blood Pressure 127/75 Pulse Oximetry 94 92 02/03/22 00:01 02/03/22 00:30 02/03/22 00:30 Pulse Rate 83 82 Respiratory Rate 13 16 Blood Pressure 140/74 Pulse Oximetry 93 92 MDM - Chest Pain Lab Data Result diagrams: 02/02/22 19:01 02/02/22 19:01 Labs: Lab Results 02/02/22 02/02/22 02/02/22 Range/Units 19:01 19:01 19:01 WBC 8.6 (4.5-11.0) X10^3/uL RBC 5.09 (4.5-5.9) X10^6/uL Hgb 15.4 (13.5-17.5) g/dL Hct 44.2 (41-53) % MCV 86.9 (80-100) fL MCH 30.3 (26-34) PG MCHC 34.9 (30-36) % RDW 13.4 (11.6-14.8) % Plt Count 159 (150-400) X10^3/uL Neut % (Auto) 51.7 (50-75) % Lymph % (Auto) 33.9 (25-40) % Person % (Auto) 8.9 (3-14) % Eos % (Auto) 3.5 (2-4) % Baso % (Auto) 2.0 (0-2) % Neut # (Auto) 4500 (5220-0323) /uL Lymph # (Auto) 2900 (9350-8167) /uL Person # (Auto) 800 (0-900) /uL Eos # (Auto) 300 (0-450) /uL Baso # (Auto) 200 H (0-100) /uL Sodium 138 (137-145) mmol/L Potassium 4.2 (3.4-5.1) mmol/L Chloride 104 (98-107) mmol/L Carbon Dioxide 17 L (22-32) mmol/L BUN 7 L (9-20) mg/dL Creatinine 0.66 (0.66-1.25) mg/dL Estimated GFR > 60 (>60) mL/min BUN/Creatinine Ratio 10.6 (6-22) Glucose 206 H (80-110) mg/dL Calcium 8.1 L (8.4-10.2) mg/dL Magnesium 1.6 (1.6-2.3) mg/dL Total Bilirubin 1.1 (0.2-1.3) mg/dL AST 49 (17-59) IU/L ALT 42 (<50) IU/L Alkaline Phosphatase 100 (38-126) U/L Total Creatine Kinase 44 L (55-170) U/L CK-MB (CK-2) TNP CK-MB (CK-2) Rel Index TNP Troponin I < 0.012 (0.01-0.034) ng/mL NT-Pro-B Natriuret Pep 246 H (<125) pg/mL Total Protein 6.7 (6.3-8.2) g/dL Albumin 3.9 (3.5-5.0) g/dL Globulin 2.8 (1.7-4.1) g/dL Albumin/Globulin Ratio 1.4 (1.0-2.8) Lipase 381 H (23-300) U/L Urine Color Urine Appearance Urine pH (4.5-8.0) Ur Specific Orick (1.000-1.035) Urine Protein (Negative) Urine Glucose (UA) (Negative) g/dL Urine Ketones (NEGATIVE) Urine Occult Blood (Negative) Urine Nitrate (Negative) Urine Bilirubin (NEGATIVE) Urine Urobilinogen (0.2) E.U./dL Ur Leukocyte Esterase (NEGATIVE) Urine RBC (0-5/HPF) Urine WBC (0-5/HPF) Urine Bacteria (None) Ur Culture Indicated? Ethyl Alcohol ( - 10) mg/dL SARS-CoV-2 (PCR) (Negative) Influenza A (RT-PCR) (NEGATIVE) Influenza B (RT-PCR) (NEGATIVE) RSV (PCR) (Negative) 02/02/22 02/02/22 02/02/22 Range/Units 19:01 19:06 19:50 WBC (4.5-11.0) X10^3/uL RBC (4.5-5.9) X10^6/uL Hgb (13.5-17.5) g/dL Hct (41-53) % MCV (80-100) fL MCH (26-34) PG MCHC (30-36) % RDW (11.6-14.8) % Plt Count (150-400) X10^3/uL Neut % (Auto) (50-75) % Lymph % (Auto) (25-40) % Person % (Auto) (3-14) % Eos % (Auto) (2-4) % Baso % (Auto) (0-2) % Neut # (Auto) (6059-6417) /uL Lymph # (Auto) (1217-7044) /uL Person # (Auto) (0-900) /uL Eos # (Auto) (0-450) /uL Baso # (Auto) (0-100) /uL Sodium (137-145) mmol/L Potassium (3.4-5.1) mmol/L Chloride (98-107) mmol/L Carbon Dioxide (22-32) mmol/L BUN (9-20) mg/dL Creatinine (0.66-1.25) mg/dL Estimated GFR (>60) mL/min BUN/Creatinine Ratio (6-22) Glucose (80-110) mg/dL Calcium (8.4-10.2) mg/dL Magnesium (1.6-2.3) mg/dL Total Bilirubin (0.2-1.3) mg/dL AST (17-59) IU/L ALT (<50) IU/L Alkaline Phosphatase (38-126) U/L Total Creatine Kinase (55-170) U/L CK-MB (CK-2) CK-MB (CK-2) Rel Index Troponin I (0.01-0.034) ng/mL NT-Pro-B Natriuret Pep (<125) pg/mL Total Protein (6.3-8.2) g/dL Albumin (3.5-5.0) g/dL Globulin (1.7-4.1) g/dL Albumin/Globulin Ratio (1.0-2.8) Lipase (23-300) U/L Urine Color Yellow Urine Appearance Clear Urine pH 5.5 (4.5-8.0) Ur Specific Orick <=1.005 (1.000-1.035) Urine Protein Negative (Negative) Urine Glucose (UA) 1+ H (Negative) g/dL Urine Ketones Negative (NEGATIVE) Urine Occult Blood Negative (Negative) Urine Nitrate Negative (Negative) Urine Bilirubin Negative (NEGATIVE) Urine Urobilinogen 0.2 (0.2) E.U./dL Ur Leukocyte Esterase Negative (NEGATIVE) Urine RBC None seen (0-5/HPF) Urine WBC None seen (0-5/HPF) Urine Bacteria None seen (None) Ur Culture Indicated? Cult not indicated Ethyl Alcohol 133 H ( - 10) mg/dL SARS-CoV-2 (PCR) Negative (Negative) Influenza A (RT-PCR) Flu a negative (NEGATIVE) Influenza B (RT-PCR) Flu b negative (NEGATIVE) RSV (PCR) Negative (Negative) 02/02/22 02/02/22 Range/Units 21:00 23:30 WBC (4.5-11.0) X10^3/uL RBC (4.5-5.9) X10^6/uL Hgb (13.5-17.5) g/dL Hct (41-53) % MCV (80-100) fL MCH (26-34) PG MCHC (30-36) % RDW (11.6-14.8) % Plt Count (150-400) X10^3/uL Neut % (Auto) (50-75) % Lymph % (Auto) (25-40) % Person % (Auto) (3-14) % Eos % (Auto) (2-4) % Baso % (Auto) (0-2) % Neut # (Auto) (0631-5369) /uL Lymph # (Auto) (8473-0888) /uL Person # (Auto) (0-900) /uL Eos # (Auto) (0-450) /uL Baso # (Auto) (0-100) /uL Sodium (137-145) mmol/L Potassium (3.4-5.1) mmol/L Chloride (98-107) mmol/L Carbon Dioxide (22-32) mmol/L BUN (9-20) mg/dL Creatinine (0.66-1.25) mg/dL Estimated GFR (>60) mL/min BUN/Creatinine Ratio (6-22) Glucose (80-110) mg/dL Calcium (8.4-10.2) mg/dL Magnesium (1.6-2.3) mg/dL Total Bilirubin (0.2-1.3) mg/dL AST (17-59) IU/L ALT (<50) IU/L Alkaline Phosphatase (38-126) U/L Total Creatine Kinase (55-170) U/L CK-MB (CK-2) CK-MB (CK-2) Rel Index Troponin I 0.013 < 0.012 (0.01-0.034) ng/mL NT-Pro-B Natriuret Pep (<125) pg/mL Total Protein (6.3-8.2) g/dL Albumin (3.5-5.0) g/dL Globulin (1.7-4.1) g/dL Albumin/Globulin Ratio (1.0-2.8) Lipase (23-300) U/L Urine Color Urine Appearance Urine pH (4.5-8.0) Ur Specific Orick (1.000-1.035) Urine Protein (Negative) Urine Glucose (UA) (Negative) g/dL Urine Ketones (NEGATIVE) Urine Occult Blood (Negative) Urine Nitrate (Negative) Urine Bilirubin (NEGATIVE) Urine Urobilinogen (0.2) E.U./dL Ur Leukocyte Esterase (NEGATIVE) Urine RBC (0-5/HPF) Urine WBC (0-5/HPF) Urine Bacteria (None) Ur Culture Indicated? Ethyl Alcohol ( - 10) mg/dL SARS-CoV-2 (PCR) (Negative) Influenza A (RT-PCR) (NEGATIVE) Influenza B (RT-PCR) (NEGATIVE) RSV (PCR) (Negative) Imaging Data Chest x-ray: Radiologist's Impression: Close Chest X-Ray (Signed) DaryRaffaele - 02/02/22 Lumbar Spine MRI (Signed) Benito Evans - 01/01/22 Chest CTA (Signed) ChoeChilo sharmael - 12/31/21 Abdomen/Pelvis CT (Signed) ChoeChilo sharmael - 12/31/21 Myocardial Perfusion Scan Nuc Med (Signed) Sujatha Retana - 12/31/21 Lumbar Spine MRI (Cancelled) 12/31/21 Lumbar Spine MRI (Cancelled) 12/31/21 Echocardiogram Ultrasound (Signed) Jayden Rodriguezon - 12/31/21 Chest X-Ray (Signed) iTan Monroy - 12/31/21 Telemetry Strips 12/31/21 Telemetry Strips 08/06/20 Telemetry Strips 08/06/20 Abdomen Ultrasound (Signed) Raffaele Foote - 08/06/20 Chest CTA (Signed) Raffaele Foote - 08/06/20 Chest X-Ray (Signed) Raffaele Foote - 08/05/20 Launch?[place] [address] XRay Report Signed Patient: Rahul Mota MR#: [id number] : 1955 Acct:[id number] Age/Sex: 66 / M Date of Service: 02/02/22 Loc: Accession Number: [id number] ?? Procedure: XR chest 1V Ordering Provider: Pao Randolph D.O. PROCEDURE:? XR CHEST 1V ? INDICATIONS:? chest pain ? TECHNIQUE:? One view of the chest was acquired.? ? COMPARISON:? [facility], CT, CT ANGIO CHEST PE PROTOCOL, 12/31/2021, 23: 01.? [facility], CR, XR CHEST 1V, 12/31/2021, 18:51. ? FINDINGS:? ? Surgical changes and devices:? None.? ? Lungs and pleura:? On this semiupright portable chest examination, no large pneumothorax or large pleural effusions are seen.? No focal infiltrates are seen.? An incomplete inspiratory result is noted, causing a crowded appearance to the lung markings.? No focal infiltrates are seen.? No pneumothorax or significant pleural effusions are seen. ? ? Mediastinum:? Mediastinal contours appear normal.? Heart size is normal.? ? Bones and chest wall:? No suspicious bony lesions.? Age-appropriate bony degenerative changes are seen. ? Overlying soft tissues appear unremarkable.? ? ? IMPRESSION:? ? Limited portable chest examination, without a significant cardiopulmonary abnormality identified.? ? ? Dictated by: Raffaele Foote M.D. on 02/02/2022 at 19:20 ? ? Approved by: Raffaele Foote M.D. on 02/02/2022 at 19:20?? ECG Data Attestation: I personally reviewed and interpreted this ECG as follows: Interpretation: Sinus rhythm rate 80 6p are 146 QRS of 106 and QTC of 464. No acute ST elevation. T-waves are inverted in lateral leads V3 through V 5 which appears changed from 10-[address] elevation. EKG 2. Sinus rhythm, rate 80 2p are 108 QRS of 106 and QTC 446. No acute ST chase nges appreciated. No dynamic changes. Patient has some T-wave inversion in V3 V4 V5. MDM Narrative Medical decision making narrative: This is a 66-year-old male who presents with recurrent chest pain similar to December as well as low back pain and radicular symptoms. Patient had an lumbar MRI at that time which showed disc bulge but no stenosis or emergent changes. Patient's did have stress testing at that time which had a fixed wall defect but no other ischemic changes and an EF of 40%. Unclear if patient has been taking his medications regularly. He states this feels very similar to his visit in December. EKG does show new ST depression, initial troponin is negative, patient exam does show radicular changes but is inconsistent throughout exam. Patient troponin was repeated no major change. Discussed with Cardiology, Dr. Matthews. Patient had a repeat troponin 4 hours from initial if still negative feels appropriate for discharge. Also discussed his MRI findings from December his exam findings from today and Dr. Block from orthopedic surgery recommends steroids, do nonnarcotic pain medication does not have a strong recommendation for narcotic pain medication. Follow up outpatient. Patient able to ambulate without issue. He is feeling better prior to discharge. Discharge Plan Departure Patient Disposition: Home Clinical Impression: Atypical chest pain, Left lumbar radiculopathy Instructions: DI for Atypical Chest Pain Activity Restrictions/Additional Instructions: I spoke with the spinal surgeon about your recent MRI from a month ago and her findings today they would like to see you in follow-up. They do recommend taking steroids for short course to see if this improves her symptoms. I also spoke with the customer service assistant, they recommend follow-up outpatient but you are appropriate for discharge today. Please continue taking the medications for your heart as prescribed. You can take Tylenol up to a 1000 mg every 6 hours as needed for pain. If in adequate you can take narcotic pain medication 1-2 tablets every 6 hours as needed. This medication can make you sleepy do not drive, perform hazardous activities or make any major decisions while taking it. This medication will make you constipated please take a stool softener once to twice daily until stools are soft and regular. Prescription sent to [facility] in [place]. Please return for new or worsening symptoms loss of bowel or bladder control, inability to move her leg, loss of sensation, worsening chest pain, shortness of breath, persistent vomiting, passing out or other new or concerning symptoms Prescriptions: New prednisone 20 mg tablet 40 mg PO DAILY Qty: 10 0RF oxycodone 5 mg tablet 5 mg PO Q6H PRN (Reason: pain) Qty: 10 0RF No Action naproxen sodium [Aleve] 220 mg Capsule 220 mg PO BID tamsulosin [Flomax] 0.4 mg Capsule 0.4 mg PO BEDTIME Qty: 90 0RF losartan 25 mg tablet 25 mg PO DAILY Qty: 90 0RF aspirin 81 mg Tablet,Delayed Release (Dr/Ec) 81 mg PO DAILY Qty: 9 0RF atorvastatin [Lipitor] 40 mg tablet 40 mg PO DAILY Qty: 90 0RF metformin 500 mg tablet 500 mg PO BID Qty: 180 0RF metoprolol succinate 25 mg tablet extended release 24 hr 25 mg PO DAILY Qty: 90 0RF oxycodone 5 mg tablet 5 mg PO Q8HR PRN (Reason: Pain.) Qty: 20 0RF Label Comments: 5 MG PO Q8HR As Needed for Pain fenofibrate micronized 134 mg capsule 134 mg PO DAILY Label Comments: took it 4 weeks ago. pantoprazole tablet 40 mg PO BID Qty: 0 0RF Referrals: Miscellaneous,Doctor, MD [Primary Care Provider] - Visit Report Forms: Patient Portal/API
--- NOTE | 2022-02-02 19:10 | DI.RAD.S_ITS ---
PROCEDURE: XR CHEST 1V INDICATIONS: chest pain TECHNIQUE: One view of the chest was acquired. COMPARISON: [facility], CT, CT ANGIO CHEST PE PROTOCOL, 12/31/2021, 23:01. [facility], CR, XR CHEST 1V, 12/31/2021, 18:51. FINDINGS: Surgical changes and devices: None. Lungs and pleura: On this semiupright portable chest examination, no large pneumothorax or large pleural effusions are seen. No focal infiltrates are seen. An incomplete inspiratory result is noted, causing a crowded appearance to the lung markings. No focal infiltrates are seen. No pneumothorax or significant pleural effusions are seen. Mediastinum: Mediastinal contours appear normal. Heart size is normal. Bones and chest wall: No suspicious bony lesions. Age-appropriate bony degenerative changes are seen. Overlying soft tissues appear unremarkable. IMPRESSION: Limited portable chest examination, without a significant cardiopulmonary abnormality identified. Dictated by: Raffaele Foote M.D. on 02/02/2022 at 19:20 Approved by: Raffaele Foote M.D. on 02/02/2022 at 19:20
[2022-02-02 19:21] LABS: Add Manual Diff / Slide Review NO; Basophils Absolute Auto 200 /uL (0-100); Eosinophils Absolute Auto 300 /uL (0-450); Eosinophils Percent Auto 3.5 % (2-4); Hematocrit 44.2 % (41-53); Hemoglobin 15.4 g/dL (13.5-17.5); Lymphocytes Absolute Auto 2900 /uL (1100-4500); Lymphocytes Percent Auto 33.9 % (25-40); Mean Corpuscular HGB Conc 34.9 % (30-36); Mean Corpuscular Hemoglobin 30.3 PG (26-34); Mean Corpuscular Volume 86.9 fL (80-100); Monocytes Absolute Auto 800 /uL (0-900); Monocytes Percent Auto 8.9 % (3-14); Neutrophils Absolute Auto 4500 /uL (1500-7000); Neutrophils Percent Auto 51.7 % (50-75); Platelet Count 159 X10^3/uL (150-400); Red Blood Cell Count 5.09 X10^6/uL (4.5-5.9); Red Cell Distribution Width 13.4 % (11.6-14.8); White Blood Cell Count 8.6 X10^3/uL (4.5-11.0)
[2022-02-02 19:24] LABS: Alanine Aminotransferase 42 IU/L (<50); Albumin 3.9 g/dL (3.5-5.0); Albumin Globulin Ratio 1.4 (1.0-2.8); Alkaline Phosphatase 100 U/L (38-126); Aspartate Aminotransferase 49 IU/L (17-59); BUN Creatinine Ratio 10.6 (6-22); Bilirubin Total 1.1 mg/dL (0.2-1.3); Blood Urea Nitrogen 7 mg/dL (9-20); Calcium 8.1 mg/dL (8.4-10.2); Carbon Dioxide 17 mmol/L (22-32); Chloride 104 mmol/L (98-107); Creatine Kinase 44 U/L (55-170); Estimated Glomerular Filt Rate > 60 mL/min (>60); Globulin 2.8 g/dL (1.7-4.1); Glucose 206 mg/dL (80-110); HEMOLYSIS 18 (0-50); Lipase 381 U/L (23-300); Magnesium 1.6 mg/dL (1.6-2.3); Potassium 4.2 mmol/L (3.4-5.1); Sodium 138 mmol/L (137-145); Total Protein 6.7 g/dL (6.3-8.2)
[2022-02-02 19:35] LABS: Troponin I < 0.012 ng/mL (0.01-0.034)
[2022-02-02 19:55] LABS: Ethanol (ETOH) 133 mg/dL
[2022-02-02] MEDS: OXYCODONE IR 5 MG TABLET 10 MG PO (20:00)
[2022-02-02 20:01] LABS: Influenza A - CEPHEID Flu A NEGATIVE (NEGATIVE); Influenza B - CEPHEID Flu B NEGATIVE (NEGATIVE); Respiratory Syncytial Virus Negative (Negative)
[2022-02-02 20:04] LABS: NT-proBNP (BNP-Adult 18+) 246 pg/mL (<125)
[2022-02-02 20:04] LABS: Appearance Urine UA CLEAR; Bilirubin Urine UA NEGATIVE (NEGATIVE); Color Urine UA YELLOW; Glucose Urine UA 1+ g/dL (Negative); Ketones Urine UA NEGATIVE (NEGATIVE); Leukocyte Esterase Urine UA NEGATIVE (NEGATIVE); Nitrite Urine UA NEGATIVE (Negative); Occult Blood Urine UA NEGATIVE (Negative); Protein Urine UA NEGATIVE (Negative); Specific Gravity Urine UA <=1.005 (1.000-1.035); Urobilinogen Urine UA 0.2 E.U./dL (0.2); pH Urine UA 5.5 (4.5-8.0)
[2022-02-02 20:13] LABS: COVID-19 CEPHEID 4-PLEX PCR Negative (Negative)
[2022-02-02 20:17] LABS: Bacteria Urine None Seen; Culture Indicated Urine Cult Not Indicated; RBC Urine None Seen (0-5/HPF); WBC Urine None Seen (0-5/HPF)
[2022-02-02 21:31] LABS: Troponin I 0.013 ng/mL (0.01-0.034)
[2022-02-03] VITALS: BP 127/75
[2022-02-03 00:01] VITALS: PULSE 83; RESP 13; O2SAT 93
[2022-02-03 00:15] LABS: Troponin I < 0.012 ng/mL (0.01-0.034)
[2022-02-03 00:30] VITALS: BP 140/74; PULSE 82; RESP 16; O2SAT 92
[2022-02-03] MEDS: predniSONE 20 MG TABLET 40 MG PO (00:48)
[2022-02-03] MEDS: OXYCODONE IR 10 MG TABLET PO (00:49)
== END 2022-02-03 00:53 | disposition home or self-care (01) ==
PROVIDERS: Emergency Provider Emergency Medicine
DX: R07.89 Other chest pain (principal); M54.16 Radiculopathy, lumbar region; Z20.822 Contact with and (suspected) exposure to COVID-19
CPT/HCPCS: 0241U; 36415; 51798; 71045; 80053; 80320; 81001; 82550; 83690; 83735; 83880; 84484; 85025; 93005; 99284

== ENCOUNTER 2022-03-02 23:16 | Emergency (ER) | payer MEDICARE, MEDICAID, SELFPAY ==
[2022-03-02 23:06] VITALS: BP 105/58; PULSE 75; RESP 16; TEMP 37.1; O2SAT 95; BMI 25.0
--- NOTE | 2022-03-02 23:15 | DI.RAD.S_ITS ---
PROCEDURE: XR CHEST 1V INDICATIONS: chest pain TECHNIQUE: One view of the chest was acquired. COMPARISON: [facility], CR, XR CHEST 1V, 02/02/2022, 19:18. FINDINGS: Surgical changes and devices: None. Lungs and pleura: Lungs are clear. No pleural effusions or pneumothorax. Mediastinum: Mediastinal contours appear normal. Heart size is normal. Bones and chest wall: No suspicious bony lesions. Overlying soft tissues appear unremarkable. IMPRESSION: 1. No acute cardiopulmonary disease. Dictated by: Severo Choe M.D. on 03/03/2022 at 0:31 Approved by: Severo Choe M.D. on 03/03/2022 at 0:31
[2022-03-02 23:16] VITALS: PULSE 97; RESP 15; O2SAT 94
[2022-03-02 23:30] VITALS: BP 110/59; PULSE 93; RESP 14; O2SAT 95
[2022-03-02 23:37] LABS: Add Manual Diff / Slide Review NO; Basophils Absolute Auto 0 /uL (0-100); Basophils Percent Auto 0.7 % (0-2); Eosinophils Absolute Auto 200 /uL (0-450); Eosinophils Percent Auto 2.5 % (2-4); Hematocrit 43.9 % (41-53); Hemoglobin 14.8 g/dL (13.5-17.5); Lymphocytes Absolute Auto 2400 /uL (1100-4500); Lymphocytes Percent Auto 31.4 % (25-40); Mean Corpuscular HGB Conc 33.6 % (30-36); Mean Corpuscular Hemoglobin 29.6 PG (26-34); Mean Corpuscular Volume 87.8 fL (80-100); Monocytes Absolute Auto 600 /uL (0-900); Monocytes Percent Auto 8.3 % (3-14); Neutrophils Absolute Auto 4300 /uL (1500-7000); Neutrophils Percent Auto 57.1 % (50-75); Platelet Count 137 X10^3/uL (150-400); Red Cell Distribution Width 13.5 % (11.6-14.8); White Blood Cell Count 7.6 X10^3/uL (4.5-11.0)
--- NOTE | 2022-03-02 23:45 | ED.CHESTPAIN ---
HPI - Chest Pain General Chief Complaint: Chest Pain Stated Complaint: chest pain Time Seen by Provider: 03/02/22 23:39 Source: EMS Mode of arrival: EMS History of Present Illness HPI narrative: Patient is a 66-year-old male history of coronary artery disease, diabetes, active tobacco smoker, multiple ED visits for atypical chest pain. His presents today with chest pain. He says he was sitting watching TV when he felt sick all across his chest dull achy radiates through to his back. Now he says it feels numb. He described it is also kind of tightness. No difficulty breathing. Not sure if this feels like his previous MIs. He was admitted 12/31/2021 for atypical chest pain during that stay he had an echocardiogram with an EF of 45-50%, nuclear stress test that showed old a fixed infarct with nothing acute he has been seen here since. It does not sound like he took anything at home he did take his daily aspirin. He reports that he does not have a ambulatory service representative. He has chronic ongoing back pain he had some urinary retention and back pain on February 02. Not having symptoms today. Related Data Home Medications Medication Instructions Recorded Confirmed fenofibrate micronized 134 mg 134 mg PO DAILY 08/06/20 08/06/20 capsule naproxen sodium 220 mg capsule 220 mg PO BID 12/31/21 12/31/21 (Aleve) Previous Rx's Medication Instructions Recorded pantoprazole 40 mg PO BID ##0 08/06/20 aspirin 81 mg tablet,delayed 81 mg PO DAILY #9 tabs 01/02/22 release atorvastatin 40 mg tablet (Lipitor) 40 mg PO DAILY #90 tabs 01/02/22 losartan 25 mg tablet 25 mg PO DAILY #90 tabs 01/02/22 metformin 500 mg tablet 500 mg PO BID #180 tabs 01/02/22 metoprolol succinate 25 mg 25 mg PO DAILY #90 tabs 01/02/22 tablet,extended release 24 hr oxycodone 5 mg tablet 5 mg PO Q8HR PRN Pain. #20 tabs 01/02/22 tamsulosin 0.4 mg capsule (Flomax) 0.4 mg PO BEDTIME #90 caps 01/02/22 oxycodone 5 mg tablet 5 mg PO Q6H PRN pain #10 tabs 02/03/22 prednisone 20 mg tablet 40 mg PO DAILY #10 tabs 02/03/22 Allergies Allergy/AdvReac Type Severity Reaction Status Date / Time No Known Drug Allergies Allergy Verified 08/05/20 23:10 Review of Systems Review of Systems Narrative: GENERAL: Denies chills, fatigue, malaise, fever, sweats, travel HEENT: Denies sinus pain, ear pain, sore throat, difficulty swallowing, neck pain RESPIRATORY: Denies dyspnea, cough, wheezing, hemoptysis, sputum. CARDIOVASCULAR: See HPI GASTROINTESTINAL: Denies nausea, vomiting, abdominal pain, diarrhea, constipation, melena. : Denies dysuria, frequency, incontinence, hematuria, urinary retention, flank pain. MUSCULOSKELETAL: Denies weakness, joint pain, or bony pain SKIN: No rash, no erythema, no pruritus NEUROLOGIC: Denies weakness, dizziness, headache, numbness, change in speech, confusion PSYCHIATRIC: No concerning psychosocial issues. 12 point review of systems is negative except for those stated above and HPI Patient History Medical History Coronary artery disease Diabetes type 2, uncontrolled Elevated blood alcohol level Surgical History H/O heart artery stent Family History Father Lung cancer Mother Medical history unknown Social History household members: significant other Smoking Status: Current every day smoker alcohol intake: former Smoking Status: Current every day smoker alcohol intake frequency: 0-2 drinks per day Substance Use Type: does not use Exam Initial Vital Signs Initial Vital Signs: Vital Signs Temperature 98.8 F 03/02/22 23:06 Pulse Rate 75 03/02/22 23:06 Respiratory Rate 16 03/02/22 23:06 Blood Pressure 105/58 L 03/02/22 23:06 Pulse Oximetry 95 03/02/22 23:06 Oxygen Delivery Method 03/02/22 23:06 GENERAL: Alert 66-year-old male and in no acute distress. HEENT: Head atraumatic,EOMI, pupils reactive, face symmetric, moist mucous membranes CARDIOVASCULAR: Regular rate and rhythm without murmurs, rubs or gallops. RESPIRATORY: Breath sounds equal bilaterally, no wheezes rales or rhonchi. ABDOMEN: Soft, nontender. Normoactive bowel sounds all 4 quadrants. No guarding or rebound. EXTREMITIES: Normal range of motion, no clubbing or edema. Neurovascularly intact NEUROLOGICAL: Alert and oriented x4.Normal gait and speech. SKIN: Warm, dry, no laceration, no petechiae, no rashes or lesions. Course Orders Ordered: ED Orders 03/02/22 23:15 XR chest 1V Stat EKG-12 Lead Stat 03/02/22 23:27 Complete Blood Count AUTO DIFF Stat Comprehensive Metabolic Panel Stat ETOH [Ethanol (ETOH)] Stat Lipase Stat Magnesium Stat Partial Thromboplastin Time Stat Prothrombin Time INR Stat Troponin & CK Cardiac Panel Stat 03/03/22 EKG-12 Lead Routine 03/03/22 02:05 Trop I [Troponin I] Stat Discontinued Medications Morphine Sulfate (Morphine 4 Mg/Ml Inj) 4 mg IV NOW ONE Stop: 03/02/22 23:52 Last Admin: 03/02/22 23:56 Dose: 4 mg Documented By: LEONARDO Oxycodone/Acetaminophen (Oxycodone/Acetaminophen 5/325 Tablet) 2 tab PO NOW ONE Stop: 03/03/22 03:05 Last Admin: 03/03/22 04:58 Dose: 2 tab Documented By: LEONARDO Vital Signs Vital signs: Vital Signs - 8 hr 03/02/22 23:06 03/02/22 23:16 03/02/22 23:30 Temperature 98.8 F Pulse Rate 75 97 H Respiratory Rate 16 15 Blood Pressure 105/58 L 110/59 L Pulse Oximetry 95 94 Oxygen Delivery Method Room Air 03/02/22 23:30 03/03/22 00:00 03/03/22 00:01 Temperature Pulse Rate 93 H 91 H Respiratory Rate 14 14 Blood Pressure 127/68 Pulse Oximetry 95 95 Oxygen Delivery Method 03/03/22 00:01 03/03/22 00:30 03/03/22 00:30 Temperature Pulse Rate 89 83 Respiratory Rate 14 12 Blood Pressure 115/64 Pulse Oximetry 96 95 Oxygen Delivery Method 03/03/22 01:00 03/03/22 01:00 03/03/22 01:30 Temperature Pulse Rate 84 Respiratory Rate 16 Blood Pressure 105/71 113/67 Pulse Oximetry 93 Oxygen Delivery Method 03/03/22 01:30 03/03/22 02:00 03/03/22 02:00 Temperature Pulse Rate 84 82 Respiratory Rate 15 12 Blood Pressure 111/71 Pulse Oximetry 92 94 Oxygen Delivery Method 03/03/22 02:30 03/03/22 02:30 03/03/22 03:00 Temperature Pulse Rate 85 Respiratory Rate 15 Blood Pressure 116/70 125/67 Pulse Oximetry 94 Oxygen Delivery Method 03/03/22 03:00 03/03/22 03:30 03/03/22 03:30 Temperature Pulse Rate 86 88 Respiratory Rate 12 14 Blood Pressure 128/74 Pulse Oximetry 95 94 Oxygen Delivery Method 03/03/22 04:00 03/03/22 04:00 03/03/22 04:30 Temperature Pulse Rate 93 H Respiratory Rate 14 Blood Pressure 130/73 121/56 L Pulse Oximetry 94 Oxygen Delivery Method 03/03/22 04:30 03/03/22 05:00 03/03/22 05:00 Temperature Pulse Rate 91 H 96 H Respiratory Rate 16 18 Blood Pressure 127/65 Pulse Oximetry 93 95 Oxygen Delivery Method MDM - Chest Pain Lab Data Result diagrams: 03/02/22 23:27 03/02/22 23:27 Labs: Lab Results 03/02/22 03/02/22 03/02/22 Range/Units 23:27 23:27 23:27 WBC 7.6 (4.5-11.0) X10^3/uL RBC 5.00 (4.5-5.9) X10^6/uL Hgb 14.8 (13.5-17.5) g/dL Hct 43.9 (41-53) % MCV 87.8 (80-100) fL MCH 29.6 (26-34) PG MCHC 33.6 (30-36) % RDW 13.5 (11.6-14.8) % Plt Count 137 L (150-400) X10^3/uL Neut % (Auto) 57.1 (50-75) % Lymph % (Auto) 31.4 (25-40) % Curry % (Auto) 8.3 (3-14) % Eos % (Auto) 2.5 (2-4) % Baso % (Auto) 0.7 (0-2) % Neut # (Auto) 4300 (6504-4346) /uL Lymph # (Auto) 2400 (7398-1147) /uL Curry # (Auto) 600 (0-900) /uL Eos # (Auto) 200 (0-450) /uL Baso # (Auto) 0 (0-100) /uL PT 12.4 (10.1-12.7) SECONDS INR 1.1 (0.9-1.3) APTT 29 (26-36) SECONDS Sodium 137 (137-145) mmol/L Potassium 4.7 (3.4-5.1) mmol/L Chloride 106 (98-107) mmol/L Carbon Dioxide 16 L (22-32) mmol/L BUN 8 L (9-20) mg/dL Creatinine 0.85 (0.66-1.25) mg/dL Estimated GFR > 60 (>60) mL/min BUN/Creatinine Ratio 9.4 (6-22) Glucose 425 H (80-110) mg/dL Calcium 8.0 L (8.4-10.2) mg/dL Magnesium 1.6 (1.6-2.3) mg/dL Total Bilirubin 0.8 (0.2-1.3) mg/dL AST 53 (17-59) IU/L ALT 61 H (<50) IU/L Alkaline Phosphatase 124 (38-126) U/L Total Creatine Kinase 37 L (55-170) U/L CK-MB (CK-2) TNP CK-MB (CK-2) Rel Index TNP Troponin I < 0.012 (0.01-0.034) ng/mL Total Protein 5.9 L (6.3-8.2) g/dL Albumin 3.7 (3.5-5.0) g/dL Globulin 2.2 (1.7-4.1) g/dL Albumin/Globulin Ratio 1.7 (1.0-2.8) Lipase 388 H (23-300) U/L Ethyl Alcohol ( - 10) mg/dL 03/02/22 03/03/22 Range/Units 23:27 02:05 WBC (4.5-11.0) X10^3/uL RBC (4.5-5.9) X10^6/uL Hgb (13.5-17.5) g/dL Hct (41-53) % MCV (80-100) fL MCH (26-34) PG MCHC (30-36) % RDW (11.6-14.8) % Plt Count (150-400) X10^3/uL Neut % (Auto) (50-75) % Lymph % (Auto) (25-40) % Curry % (Auto) (3-14) % Eos % (Auto) (2-4) % Baso % (Auto) (0-2) % Neut # (Auto) (0990-5826) /uL Lymph # (Auto) (3939-0291) /uL Curry # (Auto) (0-900) /uL Eos # (Auto) (0-450) /uL Baso # (Auto) (0-100) /uL PT (10.1-12.7) SECONDS INR (0.9-1.3) APTT (26-36) SECONDS Sodium (137-145) mmol/L Potassium (3.4-5.1) mmol/L Chloride (98-107) mmol/L Carbon Dioxide (22-32) mmol/L BUN (9-20) mg/dL Creatinine (0.66-1.25) mg/dL Estimated GFR (>60) mL/min BUN/Creatinine Ratio (6-22) Glucose (80-110) mg/dL Calcium (8.4-10.2) mg/dL Magnesium (1.6-2.3) mg/dL Total Bilirubin (0.2-1.3) mg/dL AST (17-59) IU/L ALT (<50) IU/L Alkaline Phosphatase (38-126) U/L Total Creatine Kinase (55-170) U/L CK-MB (CK-2) CK-MB (CK-2) Rel Index Troponin I < 0.012 (0.01-0.034) ng/mL Total Protein (6.3-8.2) g/dL Albumin (3.5-5.0) g/dL Globulin (1.7-4.1) g/dL Albumin/Globulin Ratio (1.0-2.8) Lipase (23-300) U/L Ethyl Alcohol 174 H ( - 10) mg/dL Imaging Data Chest x-ray: Radiologist's Impression: XRay ReportSigned Patient: Terry Flores R#: [id number]: 7Acct:[id number]/Sex: 75 / MDate of Service: 03/02/22Loc: EDAccession Number: [id number] Procedure: XR chest 1V Ordering Provider: Fariba Cotto D.O. PROCEDURE: XR CHEST 1V INDICATIONS: chest pain TECHNIQUE: One view of the chest was acquired. COMPARISON: [facility], , XR CHEST 1V, 06/13/2021, 23:07. FINDINGS: Surgical changes and devices: Neurostimulator device redemonstrated in the left hemithorax. Lungs and pleura: No acute consolidation within the visualized lungs. There is a nodular opacity within the right upper lung zone measuring up to 1.1 cm. No pleural effusions or pneumothorax. Mediastinum: Mediastinal contours appear normal. Heart size is normal. Bones and chest wall: No suspicious bony lesions. Overlying soft tissues appear unremarkable. IMPRESSION: 1. Nodular opacity within the right upper lung zone suspicious for a pulmonary nodule. Recommend a follow-up nonemergent chest CT for further evaluation. Dictated by: Severo Choe M.D. on 03/02/2022 at 22:59 ECG Data Interpretation: Sinus rhythm rate 93 [place] interval 152 QRS 116 QTC 465 Q-wave noted in inferior leads 2 3 and AVF similar to previous EKG couple weeks ago no ST elevations is no ST depressions no new T-wave inversion MDM Narrative Medical decision making narrative: Patient has been seen multiple times for chest pain he recently had a nuclear stress test a couple months ago which was negative. He was seen again for chest pain a few weeks ago for the same cardiology was consulted at that time recommend a repeat troponin. Patient is complaining of some mild back pain as well he is given morphine and Percocet here. I have discussed with him that he can not is have a and any more prescription pain meds he needs to be seen by his PCP. I also strongly encouraged that he needs to see a ambulatory service representative. He says sometimes he has difficulty with transportation. At this time he has no EKG changes he has 2- troponins. Describes his chest pain as ?numb.At this time I do not think patient's pain is related to acute coronary syndrome. At this time no need for admission. Discharge Plan Departure Patient Disposition: Home Clinical Impression: Atypical chest pain Instructions: DI for Atypical Chest Pain Activity Restrictions/Additional Instructions: *You have been diagnosed with atypical chest *What to do: At this time is for important he follow up with Cardiology. *Continue to take medications as directed Aspirin 81 mg daily *Follow up with your primary care provider in 2-3 days or call [phone] *Return to ER if you should have worsening chest pain palpitations dizziness or any new, worsening or concerning symptoms Prescriptions: No Action naproxen sodium [Aleve] 220 mg Capsule 220 mg PO BID tamsulosin [Flomax] 0.4 mg Capsule 0.4 mg PO BEDTIME Qty: 90 0RF losartan 25 mg tablet 25 mg PO DAILY Qty: 90 0RF aspirin 81 mg Tablet,Delayed Release (Dr/Ec) 81 mg PO DAILY Qty: 9 0RF atorvastatin [Lipitor] 40 mg tablet 40 mg PO DAILY Qty: 90 0RF metformin 500 mg tablet 500 mg PO BID Qty: 180 0RF metoprolol succinate 25 mg tablet extended release 24 hr 25 mg PO DAILY Qty: 90 0RF oxycodone 5 mg tablet 5 mg PO Q8HR PRN (Reason: Pain.) Qty: 20 0RF Label Comments: 5 MG PO Q8HR As Needed for Pain prednisone 20 mg tablet 40 mg PO DAILY Qty: 10 0RF oxycodone 5 mg tablet 5 mg PO Q6H PRN (Reason: pain) Qty: 10 0RF fenofibrate micronized 134 mg capsule 134 mg PO DAILY Label Comments: took it 4 weeks ago. pantoprazole tablet 40 mg PO BID Qty: 0 0RF Referrals: Miscellaneous,Doctor, MD [Primary Care Provider] - Visit Report Forms: Patient Portal/API
[2022-03-02 23:48] LABS: INR 1.1 (0.9-1.3); Prothrombin Time 12.4 SECONDS (10.1-12.7)
[2022-03-02 23:50] LABS: PTT Partial Thromboplastin Tim 29 SECONDS (26-36)
[2022-03-02] MEDS: MORPHINE 4 MG/ML INJ IV (23:56)
[2022-03-03] VITALS (12 sets, daily range): BP systolic 105–130; BP diastolic 56–74; PULSE 82–96; RESP 12–18; O2SAT 92–96
[2022-03-03] LABS: Alanine Aminotransferase 61 IU/L (<50); Albumin 3.7 g/dL (3.5-5.0); Albumin Globulin Ratio 1.7 (1.0-2.8); Alkaline Phosphatase 124 U/L (38-126); Aspartate Aminotransferase 53 IU/L (17-59); BUN Creatinine Ratio 9.4 (6-22); Bilirubin Total 0.8 mg/dL (0.2-1.3); Blood Urea Nitrogen 8 mg/dL (9-20); Carbon Dioxide 16 mmol/L (22-32); Chloride 106 mmol/L (98-107); Creatine Kinase 37 U/L (55-170); Estimated Glomerular Filt Rate > 60 mL/min (>60); Globulin 2.2 g/dL (1.7-4.1); Glucose 425 mg/dL (80-110); HEMOLYSIS 30 (0-50); Lipase 388 U/L (23-300); Magnesium 1.6 mg/dL (1.6-2.3); Potassium 4.7 mmol/L (3.4-5.1); Sodium 137 mmol/L (137-145); Total Protein 5.9 g/dL (6.3-8.2)
[2022-03-03 00:12] LABS: Troponin I < 0.012 ng/mL (0.01-0.034)
[2022-03-03 00:13] LABS: Ethanol (ETOH) 174 mg/dL
[2022-03-03 02:34] LABS: Troponin I < 0.012 ng/mL (0.01-0.034)
[2022-03-03] MEDS: OXYCODONE/ACETAMINOPHEN 5/325 TABLET 2 TAB PO (04:58)
--- NOTE | 2022-03-11 18:49 | PC.NURSE ---
Provider note faxed to [facility] for continuity of care.
== END 2022-03-03 05:22 | disposition home or self-care (01) ==
PROVIDERS: Emergency Provider Emergency Medicine
DX: R07.89 Other chest pain (principal); I25.10 Atherosclerotic heart disease of native coronary artery without angina pectoris
CPT/HCPCS: 71045; 80053; 80320; 82550; 82553; 83690; 83735; 84484; 85025; 85610; 85730; 93005; 96374; 99284; J2270

== ENCOUNTER 2022-06-11 14:26 | Inpatient (IN) | payer MEDICARE, MEDICAID, SELFPAY ==
[2022-06-11] VITALS (50 sets, daily range): BP systolic 80–137; BP diastolic 48–67; PULSE 74–95; RESP 10–32; TEMP 36.1; O2SAT 93–99; BMI 25.9
--- NOTE | 2022-06-11 | DI.RAD.S_ITS ---
PROCEDURE: XR CHEST 1V INDICATIONS: sepsis metastatic dz TECHNIQUE: One view of the chest was acquired. COMPARISON: Merged With [facility], CR, XR CHEST 1V, 03/02/2022, 23:21. FINDINGS: Surgical changes and devices: None. Lungs and pleura: There are low lung volumes. Pulmonary vascular prominence is suggestive of pulmonary edema. In addition, multiple patchy opacities are demonstrated within the left lung base. Mediastinum: Mediastinal contours appear prominent likely due to low lung volumes and portable technique. Heart size is normal. Bones and chest wall: No suspicious bony lesions. Overlying soft tissues appear unremarkable. IMPRESSION: 1. Low lung volumes with pulmonary vascular prominence consistent with pulmonary edema or vascular crowding. 2. Patchy opacities within the left lung base may represent consolidation or mass lesions. Dictated by: Severo Choe M.D. on 06/12/2022 at 0:40 Approved by: Severo Choe M.D. on 06/12/2022 at 0:47
[2022-06-11 15:17] LABS: Add Manual Diff / Slide Review NO; Basophils Absolute Auto 100 /uL (0-100); Basophils Percent Auto 1.1 % (0-2); Eosinophils Absolute Auto 0 /uL (0-450); Eosinophils Percent Auto 0.6 % (2-4); Hematocrit 46.5 % (41-53); Hemoglobin 15.5 g/dL (13.5-17.5); Lymphocytes Absolute Auto 1400 /uL (1100-4500); Lymphocytes Percent Auto 18.7 % (25-40); Mean Corpuscular HGB Conc 33.3 % (30-36); Mean Corpuscular Hemoglobin 28.3 PG (26-34); Mean Corpuscular Volume 84.9 fL (80-100); Monocytes Absolute Auto 800 /uL (0-900); Monocytes Percent Auto 10.9 % (3-14); Neutrophils Absolute Auto 5300 /uL (1500-7000); Neutrophils Percent Auto 68.7 % (50-75); Platelet Count 102 X10^3/uL (150-400); Red Blood Cell Count 5.47 X10^6/uL (4.5-5.9); Red Cell Distribution Width 15.5 % (11.6-14.8); White Blood Cell Count 7.7 X10^3/uL (4.5-11.0)
--- NOTE | 2022-06-11 15:17 | ED.GENADULT ---
HPI - General Adult <Cullen Guadarrama DO - Last Filed: 06/11/22 19:47> General Chief complaint: Abdominal Pain Stated complaint: weakness Time Seen by Provider: 06/11/22 15:06 Source: patient Mode of arrival: EMS Limitations: no limitations History of Present Illness HPI narrative: Patient is a 66-year-old male who is here for evaluation of generalized weakness and abdominal pain and nausea. Patient was recently seen at an outside facility for similar symptoms. He also reports left shoulder discomfort. This visit was approximately 10 days ago. These notes were available. 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 He has not followed up with Oncology nor his primary doctor since then. He told me today that he does have a scheduled follow-up in approximately 1-2 weeks with an oncologist but is yet to do so. Unsure where the exact primary tumor is located. At the outside facility he was found to have an elevated bilirubin an elevation in his AST and ALT and alkaline phosphatase. Upon arrival today the patient is jaundice. When asked if this was something new he states that has been worsening over the past week. He denies any fevers. No change in bowel habits. No urinary symptoms. He does have opioid pain medication at home from his last ED visit for his symptoms. Related Data Home Medications Medication Instructions Recorded Confirmed naproxen sodium 220 mg capsule 220 mg PO BID 12/31/21 12/31/21 (Aleve) Previous Rx's Medication Instructions Recorded aspirin 81 mg tablet,delayed 81 mg PO DAILY #9 tabs 01/02/22 release atorvastatin 40 mg tablet (Lipitor) 40 mg PO DAILY #90 tabs 05/11/22 losartan 50 mg tablet 50 mg PO DAILY blood pressure #90 05/11/22 tabs metformin 500 mg tablet,extended 1,000 mg PO DAILY blood sugars 05/11/22 release 24 hr #180 tabs metoprolol succinate 25 mg 25 mg PO DAILY blood pressure #90 05/11/22 tablet,extended release 24 hr tabs omeprazole 20 mg capsule,delayed 20 mg PO DAILY #90 caps 05/11/22 release Allergies Allergy/AdvReac Type Severity Reaction Status Date / Time No Known Drug Allergies Allergy Verified 06/11/22 14:57 Review of Systems <DO Shoaib Delong Last Filed: 06/11/22 19:47> Review of Systems ROS Unobtainable: All systems reviewed & are unremarkable except as noted in HPI and below Patient History <Cullen Guadarrama DO - Last Filed: 06/11/22 19:47> Medical History Benign essential HTN Coronary artery disease Diabetes type 2, uncontrolled Elevated blood alcohol level Heartburn Hyperlipidemia Surgical History H/O heart artery stent Family History Father Lung cancer Mother Medical history unknown Social History household members: significant other Smoking Status: Current every day smoker alcohol intake: former Smoking Status: Current every day smoker alcohol intake frequency: 0-2 drinks per day Substance Use Type: does not use Exam <Cullen Guadarrama DO - Last Filed: 06/11/22 19:47> Initial Vital Signs Initial Vital Signs: Vital Signs Temperature 96.9 F L 06/11/22 14:47 Pulse Rate 95 H 06/11/22 14:47 Respiratory Rate 28 H 06/11/22 14:47 Blood Pressure 83/50 L 06/11/22 14:47 Pulse Oximetry 98 06/11/22 14:47 Oxygen Delivery Method Room Air 06/11/22 14:47 Const General: ill appearing HENMT Head: normal to inspection and normocephalic Mouth: oral mucosae normal Eyes Sclera: scleral abnormality bilaterally (Jaundice) Resp Effort & Inspection: tachypneic Auscultation: clear to auscultation bilaterally Cardio Rate: regular rate Rhythm: regular rhythm GI Inspection: distended Palpation: firm and tender Skin General: jaundice Neuro General: patient alert, patient awake and moves all extremities Speech: speech normal Extrem General: edema Psych Appearance: grossly normal <Fariba Cotto DO - Last Filed: 06/12/22 06:01> Initial Vital Signs Initial Vital Signs: Vital Signs Temperature 96.9 F L 06/11/22 14:47 Pulse Rate 95 H 06/11/22 14:47 Respiratory Rate 28 H 06/11/22 14:47 Blood Pressure 83/50 L 06/11/22 14:47 Pulse Oximetry 98 06/11/22 14:47 Oxygen Delivery Method Room Air 06/11/22 14:47 Scores <Cullen Guadarrama DO - Last Filed: 06/11/22 19:47> GCS [place] coma scale eye opening: Spontaneous [place] coma scale verbal response: Orientated [place] coma scale motor response: Obey commands [place] coma scale total score: 15 <Fariba Kirti DO - Last Filed: 06/12/22 06:01> GCS [place] coma scale total score: 15 Course <Cullen Guadarrama, DO - Last Filed: 06/11/22 19:47> Orders Ordered: ED Orders 06/11/22 21:30 Lactate (Lactic Acid) Stat 06/11/22 22:18 Consult to Dietitian, Adult Urgent 06/11/22 22:19 Education, smoking cessation ONGOING 06/11/22 22:35 Consult to Discharge Planning Routine Consult to Occupational Therapy Evaluate & Treat Consult to Physical Therapy Evaluate & Treat 06/11/22 22:40 Amylase Urgent CRP [C-Reactive Protein Quant] Urgent ESR [Erythrocyte Sedimentation Rate] Urgent Hemoglobin A1C% w Est Avg Glu Urgent LDH [Lactate Dehydrogenase] Urgent Magnesium Urgent NT-proBNP (BNP-Adult 18+) Urgent PHOS [Phosphorous] Urgent 06/12/22 05:14 Complete Blood Count AUTO DIFF DAILY Comprehensive Metabolic Panel DAILY Magnesium DAILY Prothrombin Time INR Routine 06/13/22 05:00 Complete Blood Count AUTO DIFF DAILY Comprehensive Metabolic Panel DAILY Magnesium DAILY 06/14/22 05:00 Complete Blood Count AUTO DIFF DAILY Comprehensive Metabolic Panel DAILY Magnesium DAILY Acetaminophen (Acetaminophen 325 Mg Tablet) 650 mg PO Q6H PRN PRN Reason: Fever/Mild Pain (1-3) Dextrose (Dextrose 50 % In Water 25 Gm/50 Ml Syringe) 25 gm IV PRN PRN PRN Reason: Hypoglycemia Enoxaparin Sodium (Enoxaparin 40 Mg/0.4 Ml Syringe) 40 mg SUBCUT DAILY JUAN Hydromorphone HCl (Hydromorphone 2 Mg Tablet) 4 mg PO Q4HR PRN PRN Reason: Pain, Moderate (5-10 Hydromorphone HCl (Hydromorphone 2 Mg Tablet) 2 mg PO Q4HR PRN PRN Reason: Pain, Moderate (4-6) Sodium Chloride (Normal Saline 0.9%) 1,000 mls @ 100 mls/hr IV CONT JUAN Last Admin: 06/12/22 01:27 Dose: 100 mls/hr Documented By: DL Piperacillin Sod/Tazobactam (Sod 3.375 gm/ Sodium Chloride) 100 mls @ 25 mls/hr IV Q8H [facility] Last Infusion: 06/12/22 05:32 Dose: 0 mls/hr Documented By: Admin: 06/12/22 02:01 Dose: 25 mls/hr Documented By: DL Insulin Human Lispro (Insulin Lispro 100 Unit/Ml 3ml Vial) 0 unit SUBCUT ACHS JUAN; Protocol Lactulose (Lactulose 20 Gm/30 Ml Solution) 20 gm PO TID [facility] Last Admin: 06/12/22 01:28 Dose: Not Given Documented By: DL Naloxone HCl (Naloxone 0.4 Mg/Ml Vial) 0.2 mg IV Q2MIN PRN PRN Reason: Opiate Reversal Ondansetron HCl (Ondansetron 4 Mg/2 Ml Inj) 4 mg IV Q4HR PRN PRN Reason: Nausea And Vomiting Pantoprazole Sodium (Pantoprazole Dr 20 Mg Tablet) 20 mg PO 0600 [facility] Sennosides (Sennosides 8.6 Mg Tablet) 17.2 mg PO BEDTIME [facility] Discontinued Medications Diazepam (Diazepam 10 Mg/2 Ml Syringe) 2 mg IV NOW ONE Stop: 06/11/22 17:52 Last Admin: 06/11/22 17:57 Dose: 2 mg Documented By: AT Hydromorphone HCl (Hydromorphone 1 Mg Inj) 1 mg IV NOW ONE Stop: 06/11/22 16:07 Last Admin: 06/11/22 16:16 Dose: 1 mg Documented By: AT Hydromorphone HCl (Hydromorphone 1 Mg Inj) 1 mg IV NOW ONE Stop: 06/11/22 19:06 Last Admin: 06/11/22 19:08 Dose: 1 mg Documented By: AT Hydromorphone HCl (Hydromorphone 0.5 Mg Inj) 0.5 mg IV NOW ONE Stop: 06/11/22 19:50 Last Admin: 06/11/22 20:06 Dose: 0.5 mg Documented By: MARY Hydromorphone HCl (Hydromorphone 2 Mg Tablet) 2 mg PO Q4HR PRN PRN Reason: Pain, Moderate (4-10 Last Admin: 06/12/22 00:53 Dose: 2 mg Documented By: DL Sodium Chloride (Normal Saline 0.9%) 1,000 mls @ 1,000 mls/hr IV BOLUS ONE Stop: 06/11/22 16:06 Last Infusion: 06/11/22 16:21 Dose: 0 mls/hr Documented By: Admin: 06/11/22 15:19 Dose: 1,000 mls/hr Documented By: AT Piperacillin Sod/Tazobactam (Sod 4.5 gm/ Sodium Chloride) 100 mls @ 200 mls/hr IV NOW ONE Stop: 06/11/22 16:07 Last Infusion: 06/11/22 17:19 Dose: 0 mls/hr Documented By: Admin: 06/11/22 16:32 Dose: 200 mls/hr Documented By: AT Ceftriaxone Sodium 1,000 mg/ (Sodium Chloride) 100 mls @ 200 mls/hr IV NOW ONE Stop: 06/11/22 19:39 Last Infusion: 06/11/22 20:38 Dose: 0 mls/hr Documented By: Admin: 06/11/22 20:07 Dose: 200 mls/hr Documented By: MARY Sodium Chloride (Normal Saline 0.9%) 1,000 mls @ 150 mls/hr IV CONT JUAN Last Infusion: 06/12/22 00:42 Dose: 150 mls/hr Documented By: Admin: 06/11/22 20:03 Dose: 150 mls/hr Documented By: MARY Sodium Chloride (Normal Saline 0.9%) 1,000 mls @ 1,000 mls/hr IV BOLUS ONE Stop: 06/11/22 21:40 Last Infusion: 06/11/22 21:47 Dose: 0 mls/hr Documented By: DKMarnio Admin: 06/11/22 21:00 Dose: 1,000 mls/hr Documented By: MARY Sodium Chloride (Normal Saline 0.9%) 2,326.92 mls @ 775.64 mls/hr 30 ml/kg infuse over 3 hr (2326.92 ml) IV NOW ONE Stop: 06/12/22 00:09 Last Infusion: 06/12/22 00:42 Dose: 0 mls/hr Documented By: Admin: 06/11/22 21:32 Dose: 775.64 mls/hr Documented By: MARY Ceftriaxone Sodium 1,000 mg/ (Sodium Chloride) 100 mls @ 200 mls/hr IV NOW ONE Stop: 06/12/22 00:41 Last Infusion: 06/12/22 02:02 Dose: 0 mls/hr Documented By: Admin: 06/12/22 01:22 Dose: 200 mls/hr Documented By: DL Ceftriaxone Sodium 1,000 mg/ (Sodium Chloride) 100 mls @ 200 mls/hr IV 2100 JUAN Lactated Ringer's (Lactated Ringers) 500 mls @ 1,000 mls/hr IV BOLUS ONE Stop: 06/12/22 05:50 Last Admin: 06/12/22 05:33 Dose: 1,000 mls/hr Documented By: ELBA Vital Signs Vital signs: Vital Signs - 8 hr 06/11/22 22:00 06/11/22 22:00 06/11/22 22:10 Pulse Rate 83 Respiratory Rate 11 L Blood Pressure 104/58 L 108/59 L Pulse Oximetry 95 06/11/22 22:10 06/11/22 22:20 06/11/22 22:20 Pulse Rate 84 85 Respiratory Rate 15 14 Blood Pressure 108/61 Pulse Oximetry 96 94 06/11/22 22:30 06/11/22 22:30 06/11/22 22:40 Pulse Rate 83 Respiratory Rate 12 Blood Pressure 97/52 L 88/52 L Pulse Oximetry 95 06/11/22 22:40 06/11/22 22:43 06/11/22 22:43 Pulse Rate 83 86 Respiratory Rate 18 16 Blood Pressure 96/51 L Pulse Oximetry 96 98 06/11/22 22:50 06/11/22 22:50 06/11/22 23:00 Pulse Rate 83 Respiratory Rate 22 Blood Pressure 88/49 L 112/59 L Pulse Oximetry 97 06/11/22 23:00 Pulse Rate 87 Respiratory Rate 19 Blood Pressure Pulse Oximetry 96 <Fariba Cotto, - Last Filed: 06/12/22 06:01> Orders Ordered: ED Orders 06/11/22 21:30 Lactate (Lactic Acid) Stat 06/11/22 22:18 Consult to Dietitian, Adult Urgent 06/11/22 22:19 Education, smoking cessation ONGOING 06/11/22 22:35 Consult to Discharge Planning Routine Consult to Occupational Therapy Evaluate & Treat Consult to Physical Therapy Evaluate & Treat 06/11/22 22:40 Amylase Urgent CRP [C-Reactive Protein Quant] Urgent ESR [Erythrocyte Sedimentation Rate] Urgent Hemoglobin A1C% w Est Avg Glu Urgent LDH [Lactate Dehydrogenase] Urgent Magnesium Urgent NT-proBNP (BNP-Adult 18+) Urgent PHOS [Phosphorous] Urgent 06/12/22 05:14 Complete Blood Count AUTO DIFF DAILY Comprehensive Metabolic Panel DAILY Magnesium DAILY Prothrombin Time INR Routine 06/13/22 05:00 Complete Blood Count AUTO DIFF DAILY Comprehensive Metabolic Panel DAILY Magnesium DAILY 06/14/22 05:00 Complete Blood Count AUTO DIFF DAILY Comprehensive Metabolic Panel DAILY Magnesium DAILY Acetaminophen (Acetaminophen 325 Mg Tablet) 650 mg PO Q6H PRN PRN Reason: Fever/Mild Pain (1-3) Dextrose (Dextrose 50 % In Water 25 Gm/50 Ml Syringe) 25 gm IV PRN PRN PRN Reason: Hypoglycemia Enoxaparin Sodium (Enoxaparin 40 Mg/0.4 Ml Syringe) 40 mg SUBCUT DAILY [facility] Hydromorphone HCl (Hydromorphone 2 Mg Tablet) 4 mg PO Q4HR PRN PRN Reason: Pain, Moderate (5-10 Hydromorphone HCl (Hydromorphone 2 Mg Tablet) 2 mg PO Q4HR PRN PRN Reason: Pain, Moderate (4-6) Sodium Chloride (Normal Saline 0.9%) 1,000 mls @ 100 mls/hr IV CONT [facility] Last Admin: 06/12/22 01:27 Dose: 100 mls/hr Documented By: DL Piperacillin Sod/Tazobactam (Sod 3.375 gm/ Sodium Chloride) 100 mls @ 25 mls/hr IV Q8H [facility] Last Infusion: 06/12/22 05:32 Dose: 0 mls/hr Documented By: Admin: 06/12/22 02:01 Dose: 25 mls/hr Documented By: DL Insulin Human Lispro (Insulin Lispro 100 Unit/Ml 3ml Vial) 0 unit SUBCUT ACHS [facility]; Protocol Lactulose (Lactulose 20 Gm/30 Ml Solution) 20 gm PO TID [facility] Last Admin: 06/12/22 01:28 Dose: Not Given Documented By: DL Naloxone HCl (Naloxone 0.4 Mg/Ml Vial) 0.2 mg IV Q2MIN PRN PRN Reason: Opiate Reversal Ondansetron HCl (Ondansetron 4 Mg/2 Ml Inj) 4 mg IV Q4HR PRN PRN Reason: Nausea And Vomiting Pantoprazole Sodium (Pantoprazole Dr 20 Mg Tablet) 20 mg PO 0600 JUAN Sennosides (Sennosides 8.6 Mg Tablet) 17.2 mg PO BEDTIME JUAN Discontinued Medications Diazepam (Diazepam 10 Mg/2 Ml Syringe) 2 mg IV NOW ONE Stop: 06/11/22 17:52 Last Admin: 06/11/22 17:57 Dose: 2 mg Documented By: AT Hydromorphone HCl (Hydromorphone 1 Mg Inj) 1 mg IV NOW ONE Stop: 06/11/22 16:07 Last Admin: 06/11/22 16:16 Dose: 1 mg Documented By: AT Hydromorphone HCl (Hydromorphone 1 Mg Inj) 1 mg IV NOW ONE Stop: 06/11/22 19:06 Last Admin: 06/11/22 19:08 Dose: 1 mg Documented By: AT Hydromorphone HCl (Hydromorphone 0.5 Mg Inj) 0.5 mg IV NOW ONE Stop: 06/11/22 19:50 Last Admin: 06/11/22 20:06 Dose: 0.5 mg Documented By: MARY Hydromorphone HCl (Hydromorphone 2 Mg Tablet) 2 mg PO Q4HR PRN PRN Reason: Pain, Moderate (4-10 Last Admin: 06/12/22 00:53 Dose: 2 mg Documented By: DL Sodium Chloride (Normal Saline 0.9%) 1,000 mls @ 1,000 mls/hr IV BOLUS ONE Stop: 06/11/22 16:06 Last Infusion: 06/11/22 16:21 Dose: 0 mls/hr Documented By: Admin: 06/11/22 15:19 Dose: 1,000 mls/hr Documented By: AT Piperacillin Sod/Tazobactam (Sod 4.5 gm/ Sodium Chloride) 100 mls @ 200 mls/hr IV NOW ONE Stop: 06/11/22 16:07 Last Infusion: 06/11/22 17:19 Dose: 0 mls/hr Documented By: Admin: 06/11/22 16:32 Dose: 200 mls/hr Documented By: AT Ceftriaxone Sodium 1,000 mg/ (Sodium Chloride) 100 mls @ 200 mls/hr IV NOW ONE Stop: 06/11/22 19:39 Last Infusion: 06/11/22 20:38 Dose: 0 mls/hr Documented By: Admin: 06/11/22 20:07 Dose: 200 mls/hr Documented By: MARY Sodium Chloride (Normal Saline 0.9%) 1,000 mls @ 150 mls/hr IV CONT JUAN Last Infusion: 06/12/22 00:42 Dose: 150 mls/hr Documented By: Admin: 06/11/22 20:03 Dose: 150 mls/hr Documented By: MARY Sodium Chloride (Normal Saline 0.9%) 1,000 mls @ 1,000 mls/hr IV BOLUS ONE Stop: 06/11/22 21:40 Last Infusion: 06/11/22 21:47 Dose: 0 mls/hr Documented By: Admin: 06/11/22 21:00 Dose: 1,000 mls/hr Documented By: MARY Sodium Chloride (Normal Saline 0.9%) 2,326.92 mls @ 775.64 mls/hr 30 ml/kg infuse over 3 hr (2326.92 ml) IV NOW ONE Stop: 06/12/22 00:09 Last Infusion: 06/12/22 00:42 Dose: 0 mls/hr Documented By: Admin: 06/11/22 21:32 Dose: 775.64 mls/hr Documented By: MARY Ceftriaxone Sodium 1,000 mg/ (Sodium Chloride) 100 mls @ 200 mls/hr IV NOW ONE Stop: 06/12/22 00:41 Last Infusion: 06/12/22 02:02 Dose: 0 mls/hr Documented By: Admin: 06/12/22 01:22 Dose: 200 mls/hr Documented By: ELBA Ceftriaxone Sodium 1,000 mg/ (Sodium Chloride) 100 mls @ 200 mls/hr IV 2100 JUAN Lactated Ringer's (Lactated Ringers) 500 mls @ 1,000 mls/hr IV BOLUS ONE Stop: 06/12/22 05:50 Last Admin: 06/12/22 05:33 Dose: 1,000 mls/hr Documented By: ELBA Vital Signs Vital signs: Vital Signs - 8 hr 06/11/22 22:00 03/13/23 22:00 06/11/22 22:10 Pulse Rate 83 Respiratory Rate 11 L Blood Pressure 104/58 L 108/59 L Pulse Oximetry 95 06/11/22 22:10 06/11/22 22:20 06/11/22 22:20 Pulse Rate 84 85 Respiratory Rate 15 14 Blood Pressure 108/61 Pulse Oximetry 96 94 06/11/22 22:30 06/11/22 22:30 06/11/22 22:40 Pulse Rate 83 Respiratory Rate 12 Blood Pressure 97/52 L 88/52 L Pulse Oximetry 95 06/11/22 22:40 06/11/22 22:43 06/11/22 22:43 Pulse Rate 83 86 Respiratory Rate 18 16 Blood Pressure 96/51 L Pulse Oximetry 96 98 06/11/22 22:50 06/11/22 22:50 06/11/22 23:00 Pulse Rate 83 Respiratory Rate 22 Blood Pressure 88/49 L 112/59 L Pulse Oximetry 97 06/11/22 23:00 Pulse Rate 87 Respiratory Rate 19 Blood Pressure Pulse Oximetry 96 Medical Decision Making <Cullen Guadarrama, - Last Filed: 06/11/22 19:47> Medical Records Medical records reviewed: Yes I reviewed the patient's medical records. Lab Data Lab results reviewed: Yes I reviewed the patient's lab results. 06/12/22 05:14 06/12/22 05:14 Labs: Lab Results 06/11/22 06/11/22 06/11/22 Range/Units 15:13 15:13 15:13 WBC 7.7 (4.5-11.0) X10^3/uL RBC 5.47 (4.5-5.9) X10^6/uL Hgb 15.5 (13.5-17.5) g/dL Hct 46.5 (41-53) % MCV 84.9 (80-100) fL MCH 28.3 (26-34) PG MCHC 33.3 (30-36) % RDW 15.5 H (11.6-14.8) % Plt Count 102 L (150-400) X10^3/uL Neut % (Auto) 68.7 (50-75) % Lymph % (Auto) 18.7 L (25-40) % [place] % (Auto) 10.9 (3-14) % Eos % (Auto) 0.6 L (2-4) % Baso % (Auto) 1.1 (0-2) % Neut # (Auto) 5300 (1737-5183) /uL Lymph # (Auto) 1400 (7298-8381) /uL [place] # (Auto) 800 (0-900) /uL Eos # (Auto) 0 (0-450) /uL Baso # (Auto) 100 (0-100) /uL ESR (0-15) MM/HR PT 16.3 H (10.1-12.7) SECONDS INR 1.4 H (0.9-1.3) APTT 33 (26-36) SECONDS Sodium 138 (137-145) mmol/L Potassium 5.1 (3.4-5.1) mmol/L Chloride 104 (98-107) mmol/L Carbon Dioxide 21 L (22-32) mmol/L BUN 26 H (9-20) mg/dL Creatinine 0.98 (0.66-1.25) mg/dL Estimated GFR > 60 (>60) mL/min BUN/Creatinine Ratio 26.5 H (6-22) Glucose 90 (80-110) mg/dL Hemoglobin A1c (4.0-6.0) % Lactate (0.7-2.1) mmol/L Calcium 9.5 (8.4-10.2) mg/dL Phosphorus (2.3-3.7) mg/dL Magnesium (1.6-2.3) mg/dL Total Bilirubin (0.2-1.3) mg/dL Conjugated Bilirubin (0.0-0.3) md/dL Unconjugated Bilirubin (0.0-1.1) mg/dL AST (17-59) IU/L ALT (<50) IU/L Alkaline Phosphatase (38-126) U/L Ammonia (9-30) umol/L Lactate Dehydrogenase (120-246) U/L Total Creatine Kinase (55-170) U/L CK-MB (CK-2) CK-MB (CK-2) Rel Index Troponin I (0.01-0.034) ng/mL C-Reactive Protein (<1.0) mg/dL NT-Pro-B Natriuret Pep (<125) pg/mL Total Protein (6.3-8.2) g/dL Albumin (3.5-5.0) g/dL Globulin (1.7-4.1) g/dL Albumin/Globulin Ratio (1.0-2.8) Amylase (30-110) U/L Lipase (23-300) U/L Procalcitonin (<0.5) ng/mL Urine Color Urine Appearance Urine pH (4.5-8.0) Ur Specific [place] (1.000-1.035) Urine Protein (Negative) Urine Glucose (UA) (Negative) g/dL Urine Ketones (NEGATIVE) Urine Occult Blood (Negative) Urine Nitrate (Negative) Urine Bilirubin (NEGATIVE) Ur Bilirubin Confirm (Negative) Urine Urobilinogen (0.2) E.U./dL Ur Leukocyte Esterase (NEGATIVE) Urine RBC (0-5/HPF) Urine WBC (0-5/HPF) Ur Transition Epith Cell (0-5/HPF) Ur Renal Epithelial Cell (0-1/HPF) Urine Bacteria (None) Hyaline Casts (None) Ur Culture Indicated? Micro UA Comment Acetaminophen (10-30) ug/mL Ethyl Alcohol ( - 10) mg/dL Chlamy pneumoniae PCR (Not Detect) Adenovirus (PCR) (Not Detect) B. pertussis DNA (PCR) (Not Detecte) B.parapertussis DNA PCR (Not Detecte) Coronavirus OC43 (PCR) (Not Detect) Coronavirus HKU1 (PCR) (Not Detect) Coronavirus 229E (PCR) (Not Detect) SARS-CoV-2 (PCR) (Not Detecte) Coronavirus NL63 (PCR) (Not Detect) Human Metapneumovir PCR (Not Detect) Influenza Type A (PCR) (Not Detect) Influenza Type B (PCR) (Not Detect) M. pneumoniae (PCR) (Not Detect) Parainfluenza 1 (PCR) (Not Detect) Parainfluenza 2 (PCR) (Not Detect) Parainfluenza 3 (PCR) (Not Detect) Parainfluenza 4 (PCR) (Not Detect) RSV (PCR) (Not Detect) Entero/Rhino (PCR) (Not Detect) 06/11/22 06/11/22 06/11/22 Range/Units 15:13 15:13 15:22 WBC (4.5-11.0) X10^3/uL RBC (4.5-5.9) X10^6/uL Hgb (13.5-17.5) g/dL Hct (41-53) % MCV (80-100) fL MCH (26-34) PG MCHC (30-36) % RDW (11.6-14.8) % Plt Count (150-400) X10^3/uL Neut % (Auto) (50-75) % Lymph % (Auto) (25-40) % [place] % (Auto) (3-14) % Eos % (Auto) (2-4) % Baso % (Auto) (0-2) % Neut # (Auto) (7056-7264) /uL Lymph # (Auto) (7748-2643) /uL [place] # (Auto) (0-900) /uL Eos # (Auto) (0-450) /uL Baso # (Auto) (0-100) /uL ESR (0-15) MM/HR PT (10.1-12.7) SECONDS INR (0.9-1.3) APTT (26-36) SECONDS Sodium (137-145) mmol/L Potassium (3.4-5.1) mmol/L Chloride (98-107) mmol/L Carbon Dioxide (22-32) mmol/L BUN (9-20) mg/dL Creatinine (0.66-1.25) mg/dL Estimated GFR (>60) mL/min BUN/Creatinine Ratio (6-22) Glucose (80-110) mg/dL Hemoglobin A1c (4.0-6.0) % Lactate 1.9 (0.7-2.1) mmol/L Calcium (8.4-10.2) mg/dL Phosphorus (2.3-3.7) mg/dL Magnesium (1.6-2.3) mg/dL Total Bilirubin 13.6 H (0.2-1.3) mg/dL Conjugated Bilirubin 6.8 H (0.0-0.3) md/dL Unconjugated Bilirubin 1.6 H (0.0-1.1) mg/dL AST 283 H (17-59) IU/L ALT 94 H (<50) IU/L Alkaline Phosphatase 369 H (38-126) U/L Ammonia 55 H (9-30) umol/L Lactate Dehydrogenase (120-246) U/L Total Creatine Kinase 67 (55-170) U/L CK-MB (CK-2) TNP CK-MB (CK-2) Rel Index TNP Troponin I < 0.012 (0.01-0.034) ng/mL C-Reactive Protein (<1.0) mg/dL NT-Pro-B Natriuret Pep (<125) pg/mL Total Protein 7.4 (6.3-8.2) g/dL Albumin 3.5 (3.5-5.0) g/dL Globulin 3.9 (1.7-4.1) g/dL Albumin/Globulin Ratio 0.9 L (1.0-2.8) Amylase (30-110) U/L Lipase 1149 H (23-300) U/L Procalcitonin 6.29 H (<0.5) ng/mL Urine Color Urine Appearance Urine pH (4.5-8.0) Ur Specific [place] (1.000-1.035) Urine Protein (Negative) Urine Glucose (UA) (Negative) g/dL Urine Ketones (NEGATIVE) Urine Occult Blood (Negative) Urine Nitrate (Negative) Urine Bilirubin (NEGATIVE) Ur Bilirubin Confirm (Negative) Urine Urobilinogen (0.2) E.U./dL Ur Leukocyte Esterase (NEGATIVE) Urine RBC (0-5/HPF) Urine WBC (0-5/HPF) Ur Transition Epith Cell (0-5/HPF) Ur Renal Epithelial Cell (0-1/HPF) Urine Bacteria (None) Hyaline Casts (None) Ur Culture Indicated? Micro UA Comment Acetaminophen < 10 (10-30) ug/mL Ethyl Alcohol < 10 ( - 10) mg/dL Chlamy pneumoniae PCR (Not Detect) Adenovirus (PCR) (Not Detect) B. pertussis DNA (PCR) (Not Detecte) B.parapertussis DNA PCR (Not Detecte) Coronavirus OC43 (PCR) (Not Detect) Coronavirus HKU1 (PCR) (Not Detect) Coronavirus 229E (PCR) (Not Detect) SARS-CoV-2 (PCR) (Not Detecte) Coronavirus NL63 (PCR) (Not Detect) Human Metapneumovir PCR (Not Detect) Influenza Type A (PCR) (Not Detect) Influenza Type B (PCR) (Not Detect) M. pneumoniae (PCR) (Not Detect) Parainfluenza 1 (PCR) (Not Detect) Parainfluenza 2 (PCR) (Not Detect) Parainfluenza 3 (PCR) (Not Detect) Parainfluenza 4 (PCR) (Not Detect) RSV (PCR) (Not Detect) Entero/Rhino (PCR) (Not Detect) 06/11/22 06/11/22 06/11/22 Range/Units 15:36 15:55 21:30 WBC (4.5-11.0) X10^3/uL RBC (4.5-5.9) X10^6/uL Hgb (13.5-17.5) g/dL Hct (41-53) % MCV (80-100) fL MCH (26-34) PG MCHC (30-36) % RDW (11.6-14.8) % Plt Count (150-400) X10^3/uL Neut % (Auto) (50-75) % Lymph % (Auto) (25-40) % [place] % (Auto) (3-14) % Eos % (Auto) (2-4) % Baso % (Auto) (0-2) % Neut # (Auto) (5278-4278) /uL Lymph # (Auto) (7630-1950) /uL [place] # (Auto) (0-900) /uL Eos # (Auto) (0-450) /uL Baso # (Auto) (0-100) /uL ESR (0-15) MM/HR PT (10.1-12.7) SECONDS INR (0.9-1.3) APTT (26-36) SECONDS Sodium (137-145) mmol/L Potassium (3.4-5.1) mmol/L Chloride (98-107) mmol/L Carbon Dioxide (22-32) mmol/L BUN (9-20) mg/dL Creatinine (0.66-1.25) mg/dL Estimated GFR (>60) mL/min BUN/Creatinine Ratio (6-22) Glucose (80-110) mg/dL Hemoglobin A1c (4.0-6.0) % Lactate 1.7 (0.7-2.1) mmol/L Calcium (8.4-10.2) mg/dL Phosphorus (2.3-3.7) mg/dL Magnesium (1.6-2.3) mg/dL Total Bilirubin (0.2-1.3) mg/dL Conjugated Bilirubin (0.0-0.3) md/dL Unconjugated Bilirubin (0.0-1.1) mg/dL AST (17-59) IU/L ALT (<50) IU/L Alkaline Phosphatase (38-126) U/L Ammonia (9-30) umol/L Lactate Dehydrogenase (120-246) U/L Total Creatine Kinase (55-170) U/L CK-MB (CK-2) CK-MB (CK-2) Rel Index Troponin I (0.01-0.034) ng/mL C-Reactive Protein (<1.0) mg/dL NT-Pro-B Natriuret Pep (<125) pg/mL Total Protein (6.3-8.2) g/dL Albumin (3.5-5.0) g/dL Globulin (1.7-4.1) g/dL Albumin/Globulin Ratio (1.0-2.8) Amylase (30-110) U/L Lipase (23-300) U/L Procalcitonin (<0.5) ng/mL Urine Color Dark yellow Urine Appearance Clear Urine pH 5.5 (4.5-8.0) Ur Specific [place] 1.020 (1.000-1.035) Urine Protein Trace H (Negative) Urine Glucose (UA) Negative (Negative) g/dL Urine Ketones Trace H (NEGATIVE) Urine Occult Blood Negative (Negative) Urine Nitrate Positive H (Negative) Urine Bilirubin 3+ H (NEGATIVE) Ur Bilirubin Confirm Positive H (Negative) Urine Urobilinogen 2.0 H (0.2) E.U./dL Ur Leukocyte Esterase Negative (NEGATIVE) Urine RBC 1-5/hpf (0-5/HPF) Urine WBC 1-5/hpf (0-5/HPF) Ur Transition Epith Cell 0-1/hpf (0-5/HPF) Ur Renal Epithelial Cell 0-1/hpf (0-1/HPF) Urine Bacteria Occasional (0-1) (None) Hyaline Casts 1-5/lpf (None) Ur Culture Indicated? Specimen cultured Micro UA Comment 1+ oval fat bodies Acetaminophen (10-30) ug/mL Ethyl Alcohol ( - 10) mg/dL Chlamy pneumoniae PCR Not detected (Not Detect) Adenovirus (PCR) Not detected (Not Detect) B. pertussis DNA (PCR) Not detected (Not Detecte) B.parapertussis DNA PCR Not detected (Not Detecte) Coronavirus OC43 (PCR) Not detected (Not Detect) Coronavirus HKU1 (PCR) Not detected (Not Detect) Coronavirus 229E (PCR) Not detected (Not Detect) SARS-CoV-2 (PCR) Not detected (Not Detecte) Coronavirus NL63 (PCR) Not detected (Not Detect) Human Metapneumovir PCR Not detected (Not Detect) Influenza Type A (PCR) Not detected (Not Detect) Influenza Type B (PCR) Not detected (Not Detect) M. pneumoniae (PCR) Not detected (Not Detect) Parainfluenza 1 (PCR) Not detected (Not Detect) Parainfluenza 2 (PCR) Not detected (Not Detect) Parainfluenza 3 (PCR) Not detected (Not Detect) Parainfluenza 4 (PCR) Not detected (Not Detect) RSV (PCR) Not detected (Not Detect) Entero/Rhino (PCR) Not detected (Not Detect) 06/11/22 06/11/22 06/11/22 Range/Units 22:40 22:40 22:40 WBC (4.5-11.0) X10^3/uL RBC (4.5-5.9) X10^6/uL Hgb (13.5-17.5) g/dL Hct (41-53) % MCV (80-100) fL MCH (26-34) PG MCHC (30-36) % RDW (11.6-14.8) % Plt Count (150-400) X10^3/uL Neut % (Auto) (50-75) % Lymph % (Auto) (25-40) % [place] % (Auto) (3-14) % Eos % (Auto) (2-4) % Baso % (Auto) (0-2) % Neut # (Auto) (1201-3059) /uL Lymph # (Auto) (5434-9660) /uL [place] # (Auto) (0-900) /uL Eos # (Auto) (0-450) /uL Baso # (Auto) (0-100) /uL ESR (0-15) MM/HR PT (10.1-12.7) SECONDS INR (0.9-1.3) APTT (26-36) SECONDS Sodium (137-145) mmol/L Potassium (3.4-5.1) mmol/L Chloride (98-107) mmol/L Carbon Dioxide (22-32) mmol/L BUN (9-20) mg/dL Creatinine (0.66-1.25) mg/dL Estimated GFR (>60) mL/min BUN/Creatinine Ratio (6-22) Glucose (80-110) mg/dL Hemoglobin A1c 7.5 H (4.0-6.0) % Lactate (0.7-2.1) mmol/L Calcium (8.4-10.2) mg/dL Phosphorus (2.3-3.7) mg/dL Magnesium 1.9 (1.6-2.3) mg/dL Total Bilirubin (0.2-1.3) mg/dL Conjugated Bilirubin (0.0-0.3) md/dL Unconjugated Bilirubin (0.0-1.1) mg/dL AST (17-59) IU/L ALT (<50) IU/L Alkaline Phosphatase (38-126) U/L Ammonia (9-30) umol/L Lactate Dehydrogenase (120-246) U/L Total Creatine Kinase (55-170) U/L CK-MB (CK-2) CK-MB (CK-2) Rel Index Troponin I (0.01-0.034) ng/mL C-Reactive Protein (<1.0) mg/dL NT-Pro-B Natriuret Pep 736 H (<125) pg/mL Total Protein (6.3-8.2) g/dL Albumin (3.5-5.0) g/dL Globulin (1.7-4.1) g/dL Albumin/Globulin Ratio (1.0-2.8) Amylase (30-110) U/L Lipase (23-300) U/L Procalcitonin (<0.5) ng/mL Urine Color Urine Appearance Urine pH (4.5-8.0) Ur Specific [place] (1.000-1.035) Urine Protein (Negative) Urine Glucose (UA) (Negative) g/dL Urine Ketones (NEGATIVE) Urine Occult Blood (Negative) Urine Nitrate (Negative) Urine Bilirubin (NEGATIVE) Ur Bilirubin Confirm (Negative) Urine Urobilinogen (0.2) E.U./dL Ur Leukocyte Esterase (NEGATIVE) Urine RBC (0-5/HPF) Urine WBC (0-5/HPF) Ur Transition Epith Cell (0-5/HPF) Ur Renal Epithelial Cell (0-1/HPF) Urine Bacteria (None) Hyaline Casts (None) Ur Culture Indicated? Micro UA Comment Acetaminophen (10-30) ug/mL Ethyl Alcohol ( - 10) mg/dL Chlamy pneumoniae PCR (Not Detect) Adenovirus (PCR) (Not Detect) B. pertussis DNA (PCR) (Not Detecte) B.parapertussis DNA PCR (Not Detecte) Coronavirus OC43 (PCR) (Not Detect) Coronavirus HKU1 (PCR) (Not Detect) Coronavirus 229E (PCR) (Not Detect) SARS-CoV-2 (PCR) (Not Detecte) Coronavirus NL63 (PCR) (Not Detect) Human Metapneumovir PCR (Not Detect) Influenza Type A (PCR) (Not Detect) Influenza Type B (PCR) (Not Detect) M. pneumoniae (PCR) (Not Detect) Parainfluenza 1 (PCR) (Not Detect) Parainfluenza 2 (PCR) (Not Detect) Parainfluenza 3 (PCR) (Not Detect) Parainfluenza 4 (PCR) (Not Detect) RSV (PCR) (Not Detect) Entero/Rhino (PCR) (Not Detect) 06/11/22 06/11/22 06/11/22 Range/Units 22:40 22:40 22:40 WBC (4.5-11.0) X10^3/uL RBC (4.5-5.9) X10^6/uL Hgb (13.5-17.5) g/dL Hct (41-53) % MCV (80-100) fL MCH (26-34) PG MCHC (30-36) % RDW (11.6-14.8) % Plt Count (150-400) X10^3/uL Neut % (Auto) (50-75) % Lymph % (Auto) (25-40) % [place] % (Auto) (3-14) % Eos % (Auto) (2-4) % Baso % (Auto) (0-2) % Neut # (Auto) (6873-0766) /uL Lymph # (Auto) (2842-0567) /uL [place] # (Auto) (0-900) /uL Eos # (Auto) (0-450) /uL Baso # (Auto) (0-100) /uL ESR 22 H (0-15) MM/HR PT (10.1-12.7) SECONDS INR (0.9-1.3) APTT (26-36) SECONDS Sodium (137-145) mmol/L Potassium (3.4-5.1) mmol/L Chloride (98-107) mmol/L Carbon Dioxide (22-32) mmol/L BUN (9-20) mg/dL Creatinine (0.66-1.25) mg/dL Estimated GFR (>60) mL/min BUN/Creatinine Ratio (6-22) Glucose (80-110) mg/dL Hemoglobin A1c (4.0-6.0) % Lactate (0.7-2.1) mmol/L Calcium (8.4-10.2) mg/dL Phosphorus 2.8 (2.3-3.7) mg/dL Magnesium (1.6-2.3) mg/dL Total Bilirubin (0.2-1.3) mg/dL Conjugated Bilirubin (0.0-0.3) md/dL Unconjugated Bilirubin (0.0-1.1) mg/dL AST (17-59) IU/L ALT (<50) IU/L Alkaline Phosphatase (38-126) U/L Ammonia (9-30) umol/L Lactate Dehydrogenase 365 H (120-246) U/L Total Creatine Kinase (55-170) U/L CK-MB (CK-2) CK-MB (CK-2) Rel Index Troponin I (0.01-0.034) ng/mL C-Reactive Protein 6.5 H (<1.0) mg/dL NT-Pro-B Natriuret Pep (<125) pg/mL Total Protein (6.3-8.2) g/dL Albumin (3.5-5.0) g/dL Globulin (1.7-4.1) g/dL Albumin/Globulin Ratio (1.0-2.8) Amylase 68 (30-110) U/L Lipase (23-300) U/L Procalcitonin (<0.5) ng/mL Urine Color Urine Appearance Urine pH (4.5-8.0) Ur Specific [place] (1.000-1.035) Urine Protein (Negative) Urine Glucose (UA) (Negative) g/dL Urine Ketones (NEGATIVE) Urine Occult Blood (Negative) Urine Nitrate (Negative) Urine Bilirubin (NEGATIVE) Ur Bilirubin Confirm (Negative) Urine Urobilinogen (0.2) E.U./dL Ur Leukocyte Esterase (NEGATIVE) Urine RBC (0-5/HPF) Urine WBC (0-5/HPF) Ur Transition Epith Cell (0-5/HPF) Ur Renal Epithelial Cell (0-1/HPF) Urine Bacteria (None) Hyaline Casts (None) Ur Culture Indicated? Micro UA Comment Acetaminophen (10-30) ug/mL Ethyl Alcohol ( - 10) mg/dL Chlamy pneumoniae PCR (Not Detect) Adenovirus (PCR) (Not Detect) B. pertussis DNA (PCR) (Not Detecte) B.parapertussis DNA PCR (Not Detecte) Coronavirus OC43 (PCR) (Not Detect) Coronavirus HKU1 (PCR) (Not Detect) Coronavirus 229E (PCR) (Not Detect) SARS-CoV-2 (PCR) (Not Detecte) Coronavirus NL63 (PCR) (Not Detect) Human Metapneumovir PCR (Not Detect) Influenza Type A (PCR) (Not Detect) Influenza Type B (PCR) (Not Detect) M. pneumoniae (PCR) (Not Detect) Parainfluenza 1 (PCR) (Not Detect) Parainfluenza 2 (PCR) (Not Detect) Parainfluenza 3 (PCR) (Not Detect) Parainfluenza 4 (PCR) (Not Detect) RSV (PCR) (Not Detect) Entero/Rhino (PCR) (Not Detect) Imaging Data MRCP: Radiologist's Impression: PROCEDURE:? MR ABDOMEN WO/W CON ? INDICATIONS:? eval for CBD obstruction ? TECHNIQUE:? Coronal HASTE, axial 2D FLASH in- and [id number]; axial breath-hold T2 FSE.? Dynamic axial VIBE during the administration of contrast; post-contrast coronal VIBE or 2D FLASH with fat saturation from the hepatic dome to the iliac crests.? Optional diffusion weighted imaging and ADC may be performed.? ? COMPARISON:? [facility], CR, XR CHEST 1V, 03/02/2022, 23:21.? [facility], CT, CT ABDOMEN PELVIS W CON, 12/31/2021, 23:01.? [facility], US, US ABDOMEN LIMITED, 06/11/2022, 15:17. ? FINDINGS:? Image quality:? There are respiratory motion artifacts.? ? Lung bases:? Nodular pleural thickening in the left lung base suspicious for pleural metastasis.? Bibasilar atelectasis.? Trace eft pleural effusions.? Heart size is normal.? ? ? Solid organs:? Liver is mildly enlarged.? Hepatic steatosis.? There are innumerable hepatic masses highly suspicious for liver metastases.? ? Gallbladder is normal.? No gallstones.? Biliary system is non dilated.? Pancreas is normal in morphology.? Spleen is normal in size and enhancement.? Bilateral adrenal thickening.? Both kidneys demonstrate normal size and enhancement, without hydronephrosis.? There is a 1 cm renal cortical cyst in left kidney.? No hydronephrosis.? ? ? Nodes and vessels:? No retroperitoneal or mesenteric adenopathy by size criteria.? Aorta and inferior vena cava are normal in size.? ? Bowel and peritoneum:? Unenhanced bowel loops are normal in caliber.? Trace amount of ascites around the liver and spleen.? ? Bones and soft tissues:? No ventral hernias.? Bone marrow is normal in overall signal.? IMPRESSION:? ? 1. Innumerable hepatic lesions are present, highly suspicious for diffuse hepatic metastases.? 2. Nodular pleural thickening in the left hemithorax suspicious for pleural metastases. 3. Bilateral adrenal thickening, indeterminate. 4. No biliary dilation.? No findings to suggest common bile duct obstruction. 5. Trace amount of ascites and liver and spleen.? US - abdomen: Radiologist's Impression: PROCEDURE:? US ABDOMEN LIMITED ? INDICATIONS:? RUQ US EVAL FOR GALLBLADDER PATHOLOGY ? TECHNIQUE:? Real-time scanning was performed of the abdominal and retroperitoneal organs, with image documentation.? ? COMPARISON:? [facility], US, US ABDOMEN LIMITED, 08/06/2020, 3:37. ? FINDINGS:? ? Liver:? There is mild hepatomegaly.? Diffusely increased liver parenchymal echotexture is seen.? Innumerable hypodense lesions are seen scattered throughout liver parenchyma measures up to 2.7 x 2.2 x 2.5 cm in size in left hepatic lobe. ? Gallbladder:? There is no gallstone.? Slightly thickened gallbladder wall is noted.? No pericholecystic fluid or sonographic Rivera sign. ? Biliary ducts:? Intrahepatic bile ducts are non-dilated.? Extrahepatic bile duct caliber measures 3.6 mm.? Normal is 6-7 mm or less in diameter, or 10 mm or less post-cholecystectomy.? ? Pancreas:? Pancreas is not visualized due to overlying bowel gas. ? Miscellaneous:? Small amount of ascites fluid is seen in right upper quadrant abdomen. ? ? IMPRESSION:? 1. Numerous hepatic lesions concerning for extensive liver metastases. 2. Small amount of ascites fluid in right upper quadrant abdomen. 3. No gallstones.? No sonographic evidence of acute cholecystitis.? No gross biliary ductal dilatation. ECG Data Attestation: I personally reviewed and interpreted this ECG as follows: Interpretation: Sinus rhythm Ventricular rate 88 Normal axis Normal QRS Normal QTC No ST T wave changes MDM Narrative Medical decision making narrative: Patient is jaundiced and has a distended abdomen. Has known metastatic disease although we do not not know the primary source. Today he does have elevations in his bilirubin and LFTs and lipase which are higher than the ED visit from approximately 10 days ago. Patient is not confused. His right upper quadrant ultrasound shows metastatic disease. MRCP does not show any acute occlusion of his common bile duct. Blood cultures were obtained. Antibiotics administered. Patient does have a nitrite positive urine. Was treated for both cholangitis and also the urinary tract infection. Care turned over to Dr. Cotto to follow-up. Most likely will need referral/transfer to GI. <Fariba Cotto, DO - Last Filed: 06/12/22 06:01> Lab Data Labs: Lab Results 06/11/22 06/11/22 06/11/22 Range/Units 15:13 15:13 15:13 WBC 7.7 (4.5-11.0) X10^3/uL RBC 5.47 (4.5-5.9) X10^6/uL Hgb 15.5 (13.5-17.5) g/dL Hct 46.5 (41-53) % MCV 84.9 (80-100) fL MCH 28.3 (26-34) PG MCHC 33.3 (30-36) % RDW 15.5 H (11.6-14.8) % Plt Count 102 L (150-400) X10^3/uL Neut % (Auto) 68.7 (50-75) % Lymph % (Auto) 18.7 L (25-40) % [place] % (Auto) 10.9 (3-14) % Eos % (Auto) 0.6 L (2-4) % Baso % (Auto) 1.1 (0-2) % Neut # (Auto) 5300 (7315-2336) /uL Lymph # (Auto) 1400 (6543-2024) /uL [place] # (Auto) 800 (0-900) /uL Eos # (Auto) 0 (0-450) /uL Baso # (Auto) 100 (0-100) /uL ESR (0-15) MM/HR PT 16.3 H (10.1-12.7) SECONDS INR 1.4 H (0.9-1.3) APTT 33 (26-36) SECONDS Sodium 138 (137-145) mmol/L Potassium 5.1 (3.4-5.1) mmol/L Chloride 104 (98-107) mmol/L Carbon Dioxide 21 L (22-32) mmol/L BUN 26 H (9-20) mg/dL Creatinine 0.98 (0.66-1.25) mg/dL Estimated GFR > 60 (>60) mL/min BUN/Creatinine Ratio 26.5 H (6-22) Glucose 90 (80-110) mg/dL Hemoglobin A1c (4.0-6.0) % Lactate (0.7-2.1) mmol/L Calcium 9.5 (8.4-10.2) mg/dL Phosphorus (2.3-3.7) mg/dL Magnesium (1.6-2.3) mg/dL Total Bilirubin (0.2-1.3) mg/dL Conjugated Bilirubin (0.0-0.3) md/dL Unconjugated Bilirubin (0.0-1.1) mg/dL AST (17-59) IU/L ALT (<50) IU/L Alkaline Phosphatase (38-126) U/L Ammonia (9-30) umol/L Lactate Dehydrogenase (120-246) U/L Total Creatine Kinase (55-170) U/L CK-MB (CK-2) CK-MB (CK-2) Rel Index Troponin I (0.01-0.034) ng/mL C-Reactive Protein (<1.0) mg/dL NT-Pro-B Natriuret Pep (<125) pg/mL Total Protein (6.3-8.2) g/dL Albumin (3.5-5.0) g/dL Globulin (1.7-4.1) g/dL Albumin/Globulin Ratio (1.0-2.8) Amylase (30-110) U/L Lipase (23-300) U/L Procalcitonin (<0.5) ng/mL Urine Color Urine Appearance Urine pH (4.5-8.0) Ur Specific [place] (1.000-1.035) Urine Protein (Negative) Urine Glucose (UA) (Negative) g/dL Urine Ketones (NEGATIVE) Urine Occult Blood (Negative) Urine Nitrate (Negative) Urine Bilirubin (NEGATIVE) Ur Bilirubin Confirm (Negative) Urine Urobilinogen (0.2) E.U./dL Ur Leukocyte Esterase (NEGATIVE) Urine RBC (0-5/HPF) Urine WBC (0-5/HPF) Ur Transition Epith Cell (0-5/HPF) Ur Renal Epithelial Cell (0-1/HPF) Urine Bacteria (None) Hyaline Casts (None) Ur Culture Indicated? Micro UA Comment Acetaminophen (10-30) ug/mL Ethyl Alcohol ( - 10) mg/dL Chlamy pneumoniae PCR (Not Detect) Adenovirus (PCR) (Not Detect) B. pertussis DNA (PCR) (Not Detecte) B.parapertussis DNA PCR (Not Detecte) Coronavirus OC43 (PCR) (Not Detect) Coronavirus HKU1 (PCR) (Not Detect) Coronavirus 229E (PCR) (Not Detect) SARS-CoV-2 (PCR) (Not Detecte) Coronavirus NL63 (PCR) (Not Detect) Human Metapneumovir PCR (Not Detect) Influenza Type A (PCR) (Not Detect) Influenza Type B (PCR) (Not Detect) M. pneumoniae (PCR) (Not Detect) Parainfluenza 1 (PCR) (Not Detect) Parainfluenza 2 (PCR) (Not Detect) Parainfluenza 3 (PCR) (Not Detect) Parainfluenza 4 (PCR) (Not Detect) RSV (PCR) (Not Detect) Entero/Rhino (PCR) (Not Detect) 06/11/22 06/11/22 06/11/22 Range/Units 15:13 15:13 15:22 WBC (4.5-11.0) X10^3/uL RBC (4.5-5.9) X10^6/uL Hgb (13.5-17.5) g/dL Hct (41-53) % MCV (80-100) fL MCH (26-34) PG MCHC (30-36) % RDW (11.6-14.8) % Plt Count (150-400) X10^3/uL Neut % (Auto) (50-75) % Lymph % (Auto) (25-40) % [place] % (Auto) (3-14) % Eos % (Auto) (2-4) % Baso % (Auto) (0-2) % Neut # (Auto) (4009-6777) /uL Lymph # (Auto) (9370-1510) /uL [place] # (Auto) (0-900) /uL Eos # (Auto) (0-450) /uL Baso # (Auto) (0-100) /uL ESR (0-15) MM/HR PT (10.1-12.7) SECONDS INR (0.9-1.3) APTT (26-36) SECONDS Sodium (137-145) mmol/L Potassium (3.4-5.1) mmol/L Chloride (98-107) mmol/L Carbon Dioxide (22-32) mmol/L BUN (9-20) mg/dL Creatinine (0.66-1.25) mg/dL Estimated GFR (>60) mL/min BUN/Creatinine Ratio (6-22) Glucose (80-110) mg/dL Hemoglobin A1c (4.0-6.0) % Lactate 1.9 (0.7-2.1) mmol/L Calcium (8.4-10.2) mg/dL Phosphorus (2.3-3.7) mg/dL Magnesium (1.6-2.3) mg/dL Total Bilirubin 13.6 H (0.2-1.3) mg/dL Conjugated Bilirubin 6.8 H (0.0-0.3) md/dL Unconjugated Bilirubin 1.6 H (0.0-1.1) mg/dL AST 283 H (17-59) IU/L ALT 94 H (<50) IU/L Alkaline Phosphatase 369 H (38-126) U/L Ammonia 55 H (9-30) umol/L Lactate Dehydrogenase (120-246) U/L Total Creatine Kinase 67 (55-170) U/L CK-MB (CK-2) TNP CK-MB (CK-2) Rel Index TNP Troponin I < 0.012 (0.01-0.034) ng/mL C-Reactive Protein (<1.0) mg/dL NT-Pro-B Natriuret Pep (<125) pg/mL Total Protein 7.4 (6.3-8.2) g/dL Albumin 3.5 (3.5-5.0) g/dL Globulin 3.9 (1.7-4.1) g/dL Albumin/Globulin Ratio 0.9 L (1.0-2.8) Amylase (30-110) U/L Lipase 1149 H (23-300) U/L Procalcitonin 6.29 H (<0.5) ng/mL Urine Color Urine Appearance Urine pH (4.5-8.0) Ur Specific [place] (1.000-1.035) Urine Protein (Negative) Urine Glucose (UA) (Negative) g/dL Urine Ketones (NEGATIVE) Urine Occult Blood (Negative) Urine Nitrate (Negative) Urine Bilirubin (NEGATIVE) Ur Bilirubin Confirm (Negative) Urine Urobilinogen (0.2) E.U./dL Ur Leukocyte Esterase (NEGATIVE) Urine RBC (0-5/HPF) Urine WBC (0-5/HPF) Ur Transition Epith Cell (0-5/HPF) Ur Renal Epithelial Cell (0-1/HPF) Urine Bacteria (None) Hyaline Casts (None) Ur Culture Indicated? Micro UA Comment Acetaminophen < 10 (10-30) ug/mL Ethyl Alcohol < 10 ( - 10) mg/dL Chlamy pneumoniae PCR (Not Detect) Adenovirus (PCR) (Not Detect) B. pertussis DNA (PCR) (Not Detecte) B.parapertussis DNA PCR (Not Detecte) Coronavirus OC43 (PCR) (Not Detect) Coronavirus HKU1 (PCR) (Not Detect) Coronavirus 229E (PCR) (Not Detect) SARS-CoV-2 (PCR) (Not Detecte) Coronavirus NL63 (PCR) (Not Detect) Human Metapneumovir PCR (Not Detect) Influenza Type A (PCR) (Not Detect) Influenza Type B (PCR) (Not Detect) M. pneumoniae (PCR) (Not Detect) Parainfluenza 1 (PCR) (Not Detect) Parainfluenza 2 (PCR) (Not Detect) Parainfluenza 3 (PCR) (Not Detect) Parainfluenza 4 (PCR) (Not Detect) RSV (PCR) (Not Detect) Entero/Rhino (PCR) (Not Detect) 06/11/22 06/11/22 06/11/22 Range/Units 15:36 15:55 21:30 WBC (4.5-11.0) X10^3/uL RBC (4.5-5.9) X10^6/uL Hgb (13.5-17.5) g/dL Hct (41-53) % MCV (80-100) fL MCH (26-34) PG MCHC (30-36) % RDW (11.6-14.8) % Plt Count (150-400) X10^3/uL Neut % (Auto) (50-75) % Lymph % (Auto) (25-40) % [place] % (Auto) (3-14) % Eos % (Auto) (2-4) % Baso % (Auto) (0-2) % Neut # (Auto) (9241-3099) /uL Lymph # (Auto) (9927-2310) /uL [place] # (Auto) (0-900) /uL Eos # (Auto) (0-450) /uL Baso # (Auto) (0-100) /uL ESR (0-15) MM/HR PT (10.1-12.7) SECONDS INR (0.9-1.3) APTT (26-36) SECONDS Sodium (137-145) mmol/L Potassium (3.4-5.1) mmol/L Chloride (98-107) mmol/L Carbon Dioxide (22-32) mmol/L BUN (9-20) mg/dL Creatinine (0.66-1.25) mg/dL Estimated GFR (>60) mL/min BUN/Creatinine Ratio (6-22) Glucose (80-110) mg/dL Hemoglobin A1c (4.0-6.0) % Lactate 1.7 (0.7-2.1) mmol/L Calcium (8.4-10.2) mg/dL Phosphorus (2.3-3.7) mg/dL Magnesium (1.6-2.3) mg/dL Total Bilirubin (0.2-1.3) mg/dL Conjugated Bilirubin (0.0-0.3) md/dL Unconjugated Bilirubin (0.0-1.1) mg/dL AST (17-59) IU/L ALT (<50) IU/L Alkaline Phosphatase (38-126) U/L Ammonia (9-30) umol/L Lactate Dehydrogenase (120-246) U/L Total Creatine Kinase (55-170) U/L CK-MB (CK-2) CK-MB (CK-2) Rel Index Troponin I (0.01-0.034) ng/mL C-Reactive Protein (<1.0) mg/dL NT-Pro-B Natriuret Pep (<125) pg/mL Total Protein (6.3-8.2) g/dL Albumin (3.5-5.0) g/dL Globulin (1.7-4.1) g/dL Albumin/Globulin Ratio (1.0-2.8) Amylase (30-110) U/L Lipase (23-300) U/L Procalcitonin (<0.5) ng/mL Urine Color Dark yellow Urine Appearance Clear Urine pH 5.5 (4.5-8.0) Ur Specific [place] 1.020 (1.000-1.035) Urine Protein Trace H (Negative) Urine Glucose (UA) Negative (Negative) g/dL Urine Ketones Trace H (NEGATIVE) Urine Occult Blood Negative (Negative) Urine Nitrate Positive H (Negative) Urine Bilirubin 3+ H (NEGATIVE) Ur Bilirubin Confirm Positive H (Negative) Urine Urobilinogen 2.0 H (0.2) E.U./dL Ur Leukocyte Esterase Negative (NEGATIVE) Urine RBC 1-5/hpf (0-5/HPF) Urine WBC 1-5/hpf (0-5/HPF) Ur Transition Epith Cell 0-1/hpf (0-5/HPF) Ur Renal Epithelial Cell 0-1/hpf (0-1/HPF) Urine Bacteria Occasional (0-1) (None) Hyaline Casts 1-5/lpf (None) Ur Culture Indicated? Specimen cultured Micro UA Comment 1+ oval fat bodies Acetaminophen (10-30) ug/mL Ethyl Alcohol ( - 10) mg/dL Chlamy pneumoniae PCR Not detected (Not Detect) Adenovirus (PCR) Not detected (Not Detect) B. pertussis DNA (PCR) Not detected (Not Detecte) B.parapertussis DNA PCR Not detected (Not Detecte) Coronavirus OC43 (PCR) Not detected (Not Detect) Coronavirus HKU1 (PCR) Not detected (Not Detect) Coronavirus 229E (PCR) Not detected (Not Detect) SARS-CoV-2 (PCR) Not detected (Not Detecte) Coronavirus NL63 (PCR) Not detected (Not Detect) Human Metapneumovir PCR Not detected (Not Detect) Influenza Type A (PCR) Not detected (Not Detect) Influenza Type B (PCR) Not detected (Not Detect) M. pneumoniae (PCR) Not detected (Not Detect) Parainfluenza 1 (PCR) Not detected (Not Detect) Parainfluenza 2 (PCR) Not detected (Not Detect) Parainfluenza 3 (PCR) Not detected (Not Detect) Parainfluenza 4 (PCR) Not detected (Not Detect) RSV (PCR) Not detected (Not Detect) Entero/Rhino (PCR) Not detected (Not Detect) 06/11/22 06/11/22 06/11/22 Range/Units 22:40 22:40 22:40 WBC (4.5-11.0) X10^3/uL RBC (4.5-5.9) X10^6/uL Hgb (13.5-17.5) g/dL Hct (41-53) % MCV (80-100) fL MCH (26-34) PG MCHC (30-36) % RDW (11.6-14.8) % Plt Count (150-400) X10^3/uL Neut % (Auto) (50-75) % Lymph % (Auto) (25-40) % [place] % (Auto) (3-14) % Eos % (Auto) (2-4) % Baso % (Auto) (0-2) % Neut # (Auto) (3386-6202) /uL Lymph # (Auto) (6516-0688) /uL [place] # (Auto) (0-900) /uL Eos # (Auto) (0-450) /uL Baso # (Auto) (0-100) /uL ESR (0-15) MM/HR PT (10.1-12.7) SECONDS INR (0.9-1.3) APTT (26-36) SECONDS Sodium (137-145) mmol/L Potassium (3.4-5.1) mmol/L Chloride (98-107) mmol/L Carbon Dioxide (22-32) mmol/L BUN (9-20) mg/dL Creatinine (0.66-1.25) mg/dL Estimated GFR (>60) mL/min BUN/Creatinine Ratio (6-22) Glucose (80-110) mg/dL Hemoglobin A1c 7.5 H (4.0-6.0) % Lactate (0.7-2.1) mmol/L Calcium (8.4-10.2) mg/dL Phosphorus (2.3-3.7) mg/dL Magnesium 1.9 (1.6-2.3) mg/dL Total Bilirubin (0.2-1.3) mg/dL Conjugated Bilirubin (0.0-0.3) md/dL Unconjugated Bilirubin (0.0-1.1) mg/dL AST (17-59) IU/L ALT (<50) IU/L Alkaline Phosphatase (38-126) U/L Ammonia (9-30) umol/L Lactate Dehydrogenase (120-246) U/L Total Creatine Kinase (55-170) U/L CK-MB (CK-2) CK-MB (CK-2) Rel Index Troponin I (0.01-0.034) ng/mL C-Reactive Protein (<1.0) mg/dL NT-Pro-B Natriuret Pep 736 H (<125) pg/mL Total Protein (6.3-8.2) g/dL Albumin (3.5-5.0) g/dL Globulin (1.7-4.1) g/dL Albumin/Globulin Ratio (1.0-2.8) Amylase (30-110) U/L Lipase (23-300) U/L Procalcitonin (<0.5) ng/mL Urine Color Urine Appearance Urine pH (4.5-8.0) Ur Specific [place] (1.000-1.035) Urine Protein (Negative) Urine Glucose (UA) (Negative) g/dL Urine Ketones (NEGATIVE) Urine Occult Blood (Negative) Urine Nitrate (Negative) Urine Bilirubin (NEGATIVE) Ur Bilirubin Confirm (Negative) Urine Urobilinogen (0.2) E.U./dL Ur Leukocyte Esterase (NEGATIVE) Urine RBC (0-5/HPF) Urine WBC (0-5/HPF) Ur Transition Epith Cell (0-5/HPF) Ur Renal Epithelial Cell (0-1/HPF) Urine Bacteria (None) Hyaline Casts (None) Ur Culture Indicated? Micro UA Comment Acetaminophen (10-30) ug/mL Ethyl Alcohol ( - 10) mg/dL Chlamy pneumoniae PCR (Not Detect) Adenovirus (PCR) (Not Detect) B. pertussis DNA (PCR) (Not Detecte) B.parapertussis DNA PCR (Not Detecte) Coronavirus OC43 (PCR) (Not Detect) Coronavirus HKU1 (PCR) (Not Detect) Coronavirus 229E (PCR) (Not Detect) SARS-CoV-2 (PCR) (Not Detecte) Coronavirus NL63 (PCR) (Not Detect) Human Metapneumovir PCR (Not Detect) Influenza Type A (PCR) (Not Detect) Influenza Type B (PCR) (Not Detect) M. pneumoniae (PCR) (Not Detect) Parainfluenza 1 (PCR) (Not Detect) Parainfluenza 2 (PCR) (Not Detect) Parainfluenza 3 (PCR) (Not Detect) Parainfluenza 4 (PCR) (Not Detect) RSV (PCR) (Not Detect) Entero/Rhino (PCR) (Not Detect) 06/11/22 06/11/22 06/11/22 Range/Units 22:40 22:40 22:40 WBC (4.5-11.0) X10^3/uL RBC (4.5-5.9) X10^6/uL Hgb (13.5-17.5) g/dL Hct (41-53) % MCV (80-100) fL MCH (26-34) PG MCHC (30-36) % RDW (11.6-14.8) % Plt Count (150-400) X10^3/uL Neut % (Auto) (50-75) % Lymph % (Auto) (25-40) % [place] % (Auto) (3-14) % Eos % (Auto) (2-4) % Baso % (Auto) (0-2) % Neut # (Auto) (8602-8685) /uL Lymph # (Auto) (9181-0369) /uL [place] # (Auto) (0-900) /uL Eos # (Auto) (0-450) /uL Baso # (Auto) (0-100) /uL ESR 22 H (0-15) MM/HR PT (10.1-12.7) SECONDS INR (0.9-1.3) APTT (26-36) SECONDS Sodium (137-145) mmol/L Potassium (3.4-5.1) mmol/L Chloride (98-107) mmol/L Carbon Dioxide (22-32) mmol/L BUN (9-20) mg/dL Creatinine (0.66-1.25) mg/dL Estimated GFR (>60) mL/min BUN/Creatinine Ratio (6-22) Glucose (80-110) mg/dL Hemoglobin A1c (4.0-6.0) % Lactate (0.7-2.1) mmol/L Calcium (8.4-10.2) mg/dL Phosphorus 2.8 (2.3-3.7) mg/dL Magnesium (1.6-2.3) mg/dL Total Bilirubin (0.2-1.3) mg/dL Conjugated Bilirubin (0.0-0.3) md/dL Unconjugated Bilirubin (0.0-1.1) mg/dL AST (17-59) IU/L ALT (<50) IU/L Alkaline Phosphatase (38-126) U/L Ammonia (9-30) umol/L Lactate Dehydrogenase 365 H (120-246) U/L Total Creatine Kinase (55-170) U/L CK-MB (CK-2) CK-MB (CK-2) Rel Index Troponin I (0.01-0.034) ng/mL C-Reactive Protein 6.5 H (<1.0) mg/dL NT-Pro-B Natriuret Pep (<125) pg/mL Total Protein (6.3-8.2) g/dL Albumin (3.5-5.0) g/dL Globulin (1.7-4.1) g/dL Albumin/Globulin Ratio (1.0-2.8) Amylase 68 (30-110) U/L Lipase (23-300) U/L Procalcitonin (<0.5) ng/mL Urine Color Urine Appearance Urine pH (4.5-8.0) Ur Specific [place] (1.000-1.035) Urine Protein (Negative) Urine Glucose (UA) (Negative) g/dL Urine Ketones (NEGATIVE) Urine Occult Blood (Negative) Urine Nitrate (Negative) Urine Bilirubin (NEGATIVE) Ur Bilirubin Confirm (Negative) Urine Urobilinogen (0.2) E.U./dL Ur Leukocyte Esterase (NEGATIVE) Urine RBC (0-5/HPF) Urine WBC (0-5/HPF) Ur Transition Epith Cell (0-5/HPF) Ur Renal Epithelial Cell (0-1/HPF) Urine Bacteria (None) Hyaline Casts (None) Ur Culture Indicated? Micro UA Comment Acetaminophen (10-30) ug/mL Ethyl Alcohol ( - 10) mg/dL Chlamy pneumoniae PCR (Not Detect) Adenovirus (PCR) (Not Detect) B. pertussis DNA (PCR) (Not Detecte) B.parapertussis DNA PCR (Not Detecte) Coronavirus OC43 (PCR) (Not Detect) Coronavirus HKU1 (PCR) (Not Detect) Coronavirus 229E (PCR) (Not Detect) SARS-CoV-2 (PCR) (Not Detecte) Coronavirus NL63 (PCR) (Not Detect) Human Metapneumovir PCR (Not Detect) Influenza Type A (PCR) (Not Detect) Influenza Type B (PCR) (Not Detect) M. pneumoniae (PCR) (Not Detect) Parainfluenza 1 (PCR) (Not Detect) Parainfluenza 2 (PCR) (Not Detect) Parainfluenza 3 (PCR) (Not Detect) Parainfluenza 4 (PCR) (Not Detect) RSV (PCR) (Not Detect) Entero/Rhino (PCR) (Not Detect) MDM Narrative Medical decision making narrative: Patient is jaundiced and has a distended abdomen. Has known metastatic disease although we do not not know the primary source. Today he does have elevations in his bilirubin and LFTs and lipase which are higher than the ED visit from approximately 10 days ago. Patient is not confused. His right upper quadrant ultrasound shows metastatic disease. MRCP does not show any acute occlusion of his common bile duct. Blood cultures were obtained. Antibiotics administered. Patient does have a nitrite positive urine. Was treated for both cholangitis and also the urinary tract infection. Care turned over to Dr. Cotto to follow-up. Most likely will need referral/transfer to GI. Dr. Cotto-seen evaluated patient myself received sign-out from Dr. Guadarrama. Patient is quite jaundice he has mild overall diffuse pain and discomfort. MRI of the abdomen shows multiple hepatic lesions there is no CBD obstruction. I have called and spoken with GI in regards to significant elevation in bilirubin. Reports this is likely progression of disease there is nothing to stent. He is aware of the elevated lipase. Patient blood pressure does continue to drop in the emergency department. Is also found have a UTI he was given antibiotics. He is given sepsis fluids and blood pressure does improve. Patient does not have significant leukocytosis in fact WBC count is 5. Initial lactate 1.9 however when blood pressure started decreasing 2nd lactate was drawn and 1 7. So concerning for possible septic shock. He does respond to fluids. Norma hospitalist accepts patient Discharge Plan Departure Patient Disposition: Admitted As Inpatient Clinical Impression: Acute UTI, Cancer of liver Admit Date/Time: 06/11/22 23:13 Admit Provider: Norma Laguerre
[2022-06-11] MEDS: SODIUM CHLORIDE 0.9% 1,000 ML 1000 ML IV ×2 (15:19→21:00)
[2022-06-11 15:27] LABS: INR 1.4 (0.9-1.3); Prothrombin Time 16.3 SECONDS (10.1-12.7)
[2022-06-11 15:29] LABS: PTT Partial Thromboplastin Tim 33 SECONDS (26-36)
[2022-06-11 15:32] LABS: Lactate (Lactic Acid) 1.9 mmol/L (0.7-2.1)
[2022-06-11 15:35] LABS: Acetaminophen < 10 ug/mL (10-30); Alanine Aminotransferase 94 IU/L (<50); Albumin 3.5 g/dL (3.5-5.0); Albumin Globulin Ratio 0.9 (1.0-2.8); Alkaline Phosphatase 369 U/L (38-126); Aspartate Aminotransferase 283 IU/L (17-59); Bilirubin Conjugated 6.8 md/dL (0.0-0.3); Bilirubin Total 13.6 mg/dL (0.2-1.3); Bilirubin Unconjugated 1.6 mg/dL (0.0-1.1); Creatine Kinase 67 U/L (55-170); Ethanol (ETOH) < 10 mg/dL; Globulin 3.9 g/dL (1.7-4.1); Lipase 1149 U/L (23-300); Total Protein 7.4 g/dL (6.3-8.2)
[2022-06-11 15:37] LABS: BUN Creatinine Ratio 26.5 (6-22); Blood Urea Nitrogen 26 mg/dL (9-20); Calcium 9.5 mg/dL (8.4-10.2); Carbon Dioxide 21 mmol/L (22-32); Chloride 104 mmol/L (98-107); Estimated Glomerular Filt Rate > 60 mL/min (>60); Glucose 90 mg/dL (80-110); Potassium 5.1 mmol/L (3.4-5.1); Sodium 138 mmol/L (137-145)
[2022-06-11 15:45] LABS: Troponin I < 0.012 ng/mL (0.01-0.034)
[2022-06-11 15:50] LABS: Procalcitonin 6.29 ng/mL (<0.5)
[2022-06-11 15:51] LABS: Ammonia (NH3) 55 umol/L (9-30)
[2022-06-11 15:53] LABS: HEMOLYSIS 139 (0-50); HEMOLYSIS 142 (0-50)
--- NOTE | 2022-06-11 16:03 | DI.US.S_ITS ---
PROCEDURE: US ABDOMEN LIMITED INDICATIONS: RUQ US EVAL FOR GALLBLADDER PATHOLOGY TECHNIQUE: Real-time scanning was performed of the abdominal and retroperitoneal organs, with image documentation. COMPARISON: [facility], US, US ABDOMEN LIMITED, 08/06/2020, 3:37. FINDINGS: Liver: There is mild hepatomegaly. Diffusely increased liver parenchymal echotexture is seen. Innumerable hypodense lesions are seen scattered throughout liver parenchyma measures up to 2.7 x 2.2 x 2.5 cm in size in left hepatic lobe. Gallbladder: There is no gallstone. Slightly thickened gallbladder wall is noted. No pericholecystic fluid or sonographic Rivera sign. Biliary ducts: Intrahepatic bile ducts are non-dilated. Extrahepatic bile duct caliber measures 3.6 mm. Normal is 6-7 mm or less in diameter, or 10 mm or less post-cholecystectomy. Pancreas: Pancreas is not visualized due to overlying bowel gas. Miscellaneous: Small amount of ascites fluid is seen in right upper quadrant abdomen. IMPRESSION: 1. Numerous hepatic lesions concerning for extensive liver metastases. 2. Small amount of ascites fluid in right upper quadrant abdomen. 3. No gallstones. No sonographic evidence of acute cholecystitis. No gross biliary ductal dilatation. Dictated by: Ivan Block M.D. on 06/11/2022 at 17:23 Approved by: Ivan Block M.D. on 06/11/2022 at 17:25
[2022-06-11 16:07] LABS: Appearance Urine UA CLEAR; Bilirubin Urine UA 3+ (NEGATIVE); Glucose Urine UA NEGATIVE (Negative); Ketones Urine UA TRACE (NEGATIVE); Leukocyte Esterase Urine UA NEGATIVE (NEGATIVE); Nitrite Urine UA POSITIVE (Negative); Occult Blood Urine UA NEGATIVE (Negative); Protein Urine UA TRACE (Negative); pH Urine UA 5.5 (4.5-8.0)
[2022-06-11 16:08] LABS: Color Urine UA Dark Yellow; Ictotest Urine Positive (Negative)
[2022-06-11] MEDS: HYDROMORPHONE 1 MG INJ IV ×2 (16:16→19:08)
[2022-06-11 16:29] LABS: Bacteria Urine Occasional (0-1); RBC Urine 1-5/HPF (0-5/HPF); Renal Epithelial Cells Urine 0-1/HPF (0-1/HPF); Transitional Epi Cells Urine 0-1/HPF (0-5/HPF); WBC Urine 1-5/HPF (0-5/HPF)
[2022-06-11 16:30] LABS: Culture Indicated Urine Specimen Cultured; Hyaline Casts Urine 1-5/LPF; Urine Comments 1+ Oval Fat Bodies
[2022-06-11] MEDS: PIPERACILLIN/TAZO 4.5 GM in SODIUM CHLORIDE 0.9% 100 ML IV (16:32)
[2022-06-11 16:45] LABS: Adenovirus Not Detected (Not Detect)
[2022-06-11 16:46] LABS: B. parapertussis Not Detected (Not Detecte); Bordetella pertussis Not Detected (Not Detecte); Chlamydophila pneumoniae Not Detected (Not Detect); Coronavirus 229E Not Detected (Not Detect); Coronavirus HKU1 Not Detected (Not Detect); Coronavirus NL 63 Not Detected (Not Detect); Coronavirus OC43 Not Detected (Not Detect); Human Metapneumovirus Not Detected (Not Detect); Human Rhinovirus/Enterovirus Not Detected (Not Detect); Influenza A Not Detected (Not Detect); Influenza B Not Detected (Not Detect); Mycoplasma pneumoniae Not Detected (Not Detect); Parainfluenza Virus 1 Not Detected (Not Detect); Parainfluenza Virus 2 Not Detected (Not Detect); Parainfluenza Virus 3 Not Detected (Not Detect); Parainfluenza Virus 4 Not Detected (Not Detect); Respiratory Syncytial Virus Not Detected (Not Detect); SARS- CoV-2 Not Detected (Not Detecte)
--- NOTE | 2022-06-11 17:38 | DI.MRI.S_ITS ---
PROCEDURE: MR ABDOMEN WO/W CON INDICATIONS: eval for CBD obstruction TECHNIQUE: Coronal HASTE, axial 2D FLASH in- and [id number]; axial breath-hold T2 FSE. Dynamic axial VIBE during the administration of contrast; post-contrast coronal VIBE or 2D FLASH with fat saturation from the hepatic dome to the iliac crests. Optional diffusion weighted imaging and ADC may be performed. COMPARISON: [facility], CR, XR CHEST 1V, 03/02/2022, 23:21. [facility], CT, CT ABDOMEN PELVIS W CON, 12/31/2021, 23:01. [facility], US, US ABDOMEN LIMITED, 06/11/2022, 15:17. FINDINGS: Image quality: There are respiratory motion artifacts. Lung bases: Nodular pleural thickening in the left lung base suspicious for pleural metastasis. Bibasilar atelectasis. Trace eft pleural effusions. Heart size is normal. Solid organs: Liver is mildly enlarged. Hepatic steatosis. There are innumerable hepatic masses highly suspicious for liver metastases. Gallbladder is normal. No gallstones. Biliary system is non dilated. Pancreas is normal in morphology. Spleen is normal in size and enhancement. Bilateral adrenal thickening. Both kidneys demonstrate normal size and enhancement, without hydronephrosis. There is a 1 cm renal cortical cyst in left kidney. No hydronephrosis. Nodes and vessels: No retroperitoneal or mesenteric adenopathy by size criteria. Aorta and inferior vena cava are normal in size. Bowel and peritoneum: Unenhanced bowel loops are normal in caliber. Trace amount of ascites around the liver and spleen. Bones and soft tissues: No ventral hernias. Bone marrow is normal in overall signal. IMPRESSION: 1. Innumerable hepatic lesions are present, highly suspicious for diffuse hepatic metastases. 2. Nodular pleural thickening in the left hemithorax suspicious for pleural metastases. 3. Bilateral adrenal thickening, indeterminate. 4. No biliary dilation. No findings to suggest common bile duct obstruction. 5. Trace amount of ascites and liver and spleen. Dictated by: Altagracia Jones M.D. on 06/11/2022 at 17:49 Approved by: Altagracia Jones M.D. on 06/11/2022 at 18:01
[2022-06-11] MEDS: diazePAM 10 MG/2 ML SYRINGE 2 MG IV (17:57)
[2022-06-11] MEDS: SODIUM CHLORIDE 0.9% 1,000 ML 150 ML IV (20:03)
[2022-06-11] MEDS: HYDROMORPHONE 0.5 MG INJ IV (20:06)
[2022-06-11] MEDS: cefTRIAXone 1,000 MG in SODIUM CHLORIDE 0.9% 100 ML 200 MG IV (20:07)
[2022-06-11] MEDS: SODIUM CHLORIDE 0.9% 775.64 ML IV (21:32)
[2022-06-11 21:59] LABS: Lactate (Lactic Acid) 1.7 mmol/L (0.7-2.1)
--- NOTE | 2022-06-11 22:46 | PM.HP.1 ---
History of Present Illness History of Present Illness Date Patient Seen: 06/11/22 Time Patient Seen: 22:46 Chief complaint: weakness Narrative: Mr. 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 Patient was seen in another facility approximately 10 days ago.? I personally reviewed these notes from [facility] ED visit 06/03/2022 I personally reviewed all notes, laboratory and diagnostics available. He has not followed up with Oncology.? He informed the ED that he has a scheduled follow-up in approximately 1-2 weeks with an oncologist but is yet to do so.? At the outside facility he was found to have an elevated bilirubin an elevation in his AST and ALT and alkaline phosphatase.? Upon arrival today the patient is jaundice.? Patient is difficult to converse with as he is almost exclusively focused on his generalized pain and does not appear to truly comprehend the extensiveness of his metastatic disease in relation to his pain and level of function. I do not believe this is encephalopathic but more impaired cognitive comprehension at baseline. On admit patient denies chest pain, shortness in breath, headache, changes in vision, difficulty swallowing, speech impairment, numbness, tingling, difficulty with ambulation, recent falls, head injury, LOC, fever, cough, recent exposure to illness, urinary incontinence/retention, dysuria, frequency, urgency, hematuria, bowel changes, constipation, incontinence, melena, rashes, recent changes to medication, injury, or trauma. Patient's blood pressures are soft both in the ED and on admit afebrile temp 96.9?, BP is 83/50, 98/57, 89/53, 101/59, HR 86, tachypneic from 14-32, O2 saturation 94% on room air. Patient has generalized icterus with abdominal distention. But is in no acute distress. Platelets 102, BUN 26, bicarb 21, bili 13.6, AST 283, ALT 94, alk-phos 369, PT 16.3, INR 1.4, ETOH is negative, lactate 1.9, procalcitonin 6.29, ammonia 55, respiratory panel is negative, hepatitis and blood culture panels are pending, urinalysis is positive for protein nitrates and bacteria culture pending lipase 1149. CXR: 1. Low lung volumes with pulmonary vascular prominence consistent with pulmonary edema or vascular crowding. 2. Patchy opacities within the left lung base may represent consolidation or mass lesions.? ABD U/S:1. Numerous hepatic lesions concerning for extensive liver metastases. 2. Small amount of ascites fluid in right upper quadrant abdomen. 3. No gallstones.? No sonographic evidence of acute cholecystitis.? No gross biliary ductal dilatation. A/P MRI: Innumerable hepatic lesions are present, highly suspicious for diffuse hepatic metastases. 2. Nodular pleural thickening in the left hemithorax suspicious for pleural metastases. 3. Bilateral adrenal thickening, indeterminate. 4. No biliary dilation. No findings to suggest common bile duct obstruction. 5. Trace amount of ascites and liver and spleen. ED consulted with GI at [facility] who noted no biliary obstruction hence no need for transfer to GI for any stent intervention. I consulted with Dr. David who approved the patient was appropriate for admit to our facility. Patient admitted to the ICU with sepsis without septic shock, UTI, transaminitis likely secondary to metastatic disease. Patient History Medical History Benign essential HTN Coronary artery disease Diabetes type 2, uncontrolled Elevated blood alcohol level Heartburn Hyperlipidemia Surgical History H/O heart artery stent Family & Social History Family History Father Lung cancer Mother Medical history unknown Social History: household members significant other Safety & Behavioral: Feels Safe in Current Yes Environment Been Physically Hurt or No Threatened By a Person Tobacco & Substance use: Tobacco type cigarettes Smoking Status Current every day smoker alcohol intake former alcohol intake frequency 0-2 drinks per day Substance Use Type does not use Meds Home Medications and Allergies Home Medications Medication Instructions Recorded Confirmed Type naproxen sodium 220 mg capsule 220 mg PO BID 12/31/21 12/31/21 History (Aleve) aspirin 81 mg tablet,delayed 81 mg PO DAILY #9 tabs 01/02/22 Rx release atorvastatin 40 mg tablet (Lipitor) 40 mg PO DAILY #90 tabs 05/11/22 05/11/22 Rx losartan 50 mg tablet 50 mg PO DAILY blood pressure #90 05/11/22 05/11/22 Rx tabs metformin 500 mg tablet,extended 1,000 mg PO DAILY blood sugars 05/11/22 05/11/22 Rx release 24 hr #180 tabs metoprolol succinate 25 mg 25 mg PO DAILY blood pressure #90 05/11/22 05/11/22 Rx tablet,extended release 24 hr tabs omeprazole 20 mg capsule,delayed 20 mg PO DAILY #90 caps 05/11/22 05/11/22 Rx release Allergies Allergy/AdvReac Type Severity Reaction Status Date / Time No Known Drug Allergies Allergy Verified 06/11/22 14:57 Review of Systems Review of Systems Narrative: All 12 point systems reviewed with the patient and are negative except otherwise documented. Exam Vital Signs (past 8 hours): - 06/11/22 14:47 06/11/22 15:15 06/11/22 15:15 Temperature 96.9 F L Pulse Rate 95 H 90 Respiratory Rate 28 H Blood Pressure 83/50 L 111/60 Pulse Oximetry 98 97 Oxygen Delivery Method Room Air 06/11/22 15:19 06/11/22 15:19 06/11/22 15:30 Temperature Pulse Rate 86 86 Respiratory Rate 20 20 Blood Pressure 101/59 L Pulse Oximetry 96 96 Oxygen Delivery Method 06/11/22 15:32 06/11/22 15:32 06/11/22 15:41 Temperature Pulse Rate 81 Respiratory Rate 19 Blood Pressure 106/58 L 111/65 Pulse Oximetry 96 Oxygen Delivery Method 06/11/22 15:41 06/11/22 15:51 06/11/22 15:51 Temperature Pulse Rate 85 86 Respiratory Rate 20 20 Blood Pressure 137/58 L Pulse Oximetry Oxygen Delivery Method 06/11/22 15:53 06/11/22 15:53 06/11/22 16:00 Temperature Pulse Rate 87 Respiratory Rate 24 Blood Pressure 126/58 L 117/61 Pulse Oximetry Oxygen Delivery Method 06/11/22 16:00 06/11/22 16:10 06/11/22 16:10 Temperature Pulse Rate 84 92 H Respiratory Rate 21 28 H Blood Pressure 121/65 Pulse Oximetry 99 99 Oxygen Delivery Method Room Air Room Air 06/11/22 16:20 06/11/22 16:20 06/11/22 16:30 Temperature Pulse Rate 82 Respiratory Rate 32 H Blood Pressure 104/62 104/62 Pulse Oximetry 98 Oxygen Delivery Method 06/11/22 16:30 06/11/22 16:40 06/11/22 16:40 Temperature Pulse Rate 83 79 Respiratory Rate 19 16 Blood Pressure 104/60 Pulse Oximetry 96 96 Oxygen Delivery Method Room Air 06/11/22 16:50 06/11/22 16:50 06/11/22 17:00 Temperature Pulse Rate 74 Respiratory Rate 17 Blood Pressure 101/59 L 106/67 Pulse Oximetry 95 Oxygen Delivery Method 06/11/22 17:00 06/11/22 17:10 06/11/22 17:10 Temperature Pulse Rate 86 85 Respiratory Rate 21 16 Blood Pressure 98/57 L Pulse Oximetry 96 95 Oxygen Delivery Method Room Air 06/11/22 17:20 06/11/22 17:20 06/11/22 17:30 Temperature Pulse Rate 84 Respiratory Rate 16 Blood Pressure 104/59 L 106/56 L Pulse Oximetry 94 Oxygen Delivery Method 06/11/22 17:30 06/11/22 17:40 06/11/22 17:40 Temperature Pulse Rate 84 84 Respiratory Rate 15 15 Blood Pressure 112/57 L Pulse Oximetry 97 97 Oxygen Delivery Method 06/11/22 17:50 06/11/22 17:50 06/11/22 18:00 Temperature Pulse Rate 87 Respiratory Rate 16 Blood Pressure 113/59 L 115/67 Pulse Oximetry 98 Oxygen Delivery Method 06/11/22 18:00 06/11/22 19:00 06/11/22 19:02 Temperature Pulse Rate 91 H 92 H 89 Respiratory Rate 16 Blood Pressure Pulse Oximetry 98 96 Oxygen Delivery Method Room Air Room Air 06/11/22 19:02 06/11/22 19:10 06/11/22 19:10 Temperature Pulse Rate 91 H Respiratory Rate Blood Pressure 96/55 L 102/61 Pulse Oximetry 96 Oxygen Delivery Method 06/11/22 19:20 06/11/22 19:20 06/11/22 19:30 Temperature Pulse Rate 87 Respiratory Rate Blood Pressure 97/61 96/63 Pulse Oximetry 94 Oxygen Delivery Method 06/11/22 19:30 06/11/22 19:40 06/11/22 19:40 Temperature Pulse Rate 88 87 Respiratory Rate Blood Pressure 85/49 L Pulse Oximetry 95 95 Oxygen Delivery Method 06/11/22 19:44 06/11/22 19:44 06/11/22 19:50 Temperature Pulse Rate 88 92 H Respiratory Rate Blood Pressure 105/58 L Pulse Oximetry 96 97 Oxygen Delivery Method 06/11/22 19:50 06/11/22 20:00 06/11/22 20:00 Temperature Pulse Rate 91 H Respiratory Rate Blood Pressure 112/60 90/54 L Pulse Oximetry 95 Oxygen Delivery Method 06/11/22 20:10 06/11/22 20:10 06/11/22 20:20 Temperature Pulse Rate 87 Respiratory Rate Blood Pressure 103/61 80/48 L Pulse Oximetry 93 Oxygen Delivery Method 06/11/22 20:20 06/11/22 20:26 06/11/22 20:26 Temperature Pulse Rate 85 89 Respiratory Rate Blood Pressure 109/63 Pulse Oximetry 93 96 Oxygen Delivery Method 06/11/22 20:30 06/11/22 20:30 06/11/22 20:40 Temperature Pulse Rate 85 86 Respiratory Rate Blood Pressure 107/62 Pulse Oximetry 94 93 Oxygen Delivery Method 06/11/22 20:40 06/11/22 20:50 06/11/22 20:50 Temperature Pulse Rate 86 Respiratory Rate 14 Blood Pressure 88/51 L 89/53 L Pulse Oximetry 94 Oxygen Delivery Method Room Air Oxygen Delivery Method Room Air Narrative Exam Narrative: General: Patient is a well-developed, well-nourished ill-appearing icterus male with generalized edema in moderate pain but in no acute distress at this time. HEENT: Normocephalic, atraumatic, sclera icterus, extraocular muscles intact, oral pharynx is clear and mucous membranes are moist. Neck is supple and symmetric, trachea is midline, no adenopathy, no thyroid enlargement, nontender, no masses palpated. Negative for JVD Chest: Breathing without nasal flaring, retractions, or tachypneic labored (RR14) Lungs: Auscultation of all lung [place] are clear without adventitious sounds, wheezes, rhonchi, or rales. Cardio: S1 & S2 with regular rate and rhythm without murmur, rubs, or gallops, no carotid bruit, no cardiac pulsations present. Abdomen: Slightly distended, tender to palpation generalized, firm, Bowel sounds are hypoactive present in all 4 quadrants, no CVA tenderness. Musculoskeletal: Muscle strength and tone are equal, no deformity, crepitus, effusions, cyanosis, clubbing present. Full range of motion intact radial and pedal pulses are normal. Skin: Icterus, generalized edema, Warm dry and intact without rashes, ulcerations or petechiae. Neuro: Alert and orientated x3, moves all extremities, sensation to touch intact, no gross deficits noted of cranial nerves. Psych: Patient has a well-kept appearance, appropriate affect, possible delayed or baseline cognitive impairment, mental status attitude thought context, comprehension and judgment are inappropriate for age and situation. Objective Labs 06/11/22 15:13 06/11/22 15:13 Labs: Laboratory Results - last 24 hr 06/11/22 06/11/22 06/11/22 15:13 15:13 15:13 WBC 7.7 RBC 5.47 Hgb 15.5 Hct 46.5 MCV 84.9 MCH 28.3 MCHC 33.3 RDW 15.5 H Plt Count 102 L Neut % (Auto) 68.7 Lymph % (Auto) 18.7 L [place] % (Auto) 10.9 Eos % (Auto) 0.6 L Baso % (Auto) 1.1 Neut # (Auto) 5300 Lymph # (Auto) 1400 [place] # (Auto) 800 Eos # (Auto) 0 Baso # (Auto) 100 PT 16.3 H INR 1.4 H APTT 33 Sodium 138 Potassium 5.1 Chloride 104 Carbon Dioxide 21 L BUN 26 H Creatinine 0.98 Estimated GFR > 60 BUN/Creatinine Ratio 26.5 H Glucose 90 Lactate Calcium 9.5 Total Bilirubin Conjugated Bilirubin Unconjugated Bilirubin AST ALT Alkaline Phosphatase Ammonia Total Creatine Kinase CK-MB (CK-2) CK-MB (CK-2) Rel Index Troponin I Total Protein Albumin Globulin Albumin/Globulin Ratio Lipase Procalcitonin Urine Color Urine Appearance Urine pH Ur Specific [place] Urine Protein Urine Glucose (UA) Urine Ketones Urine Occult Blood Urine Nitrate Urine Bilirubin Ur Bilirubin Confirm Urine Urobilinogen Ur Leukocyte Esterase Urine RBC Urine WBC Ur Transition Epith Cell Ur Renal Epithelial Cell Urine Bacteria Hyaline Casts Ur Culture Indicated? Micro UA Comment Acetaminophen Ethyl Alcohol Chlamy pneumoniae PCR Adenovirus (PCR) B. pertussis DNA (PCR) B.parapertussis DNA PCR Coronavirus OC43 (PCR) Coronavirus HKU1 (PCR) Coronavirus 229E (PCR) SARS-CoV-2 (PCR) Coronavirus NL63 (PCR) Human Metapneumovir PCR Influenza Type A (PCR) Influenza Type B (PCR) M. pneumoniae (PCR) Parainfluenza 1 (PCR) Parainfluenza 2 (PCR) Parainfluenza 3 (PCR) Parainfluenza 4 (PCR) RSV (PCR) Entero/Rhino (PCR) 06/11/22 06/11/22 06/11/22 15:13 15:13 15:22 WBC RBC Hgb Hct MCV MCH MCHC RDW Plt Count Neut % (Auto) Lymph % (Auto) [place] % (Auto) Eos % (Auto) Baso % (Auto) Neut # (Auto) Lymph # (Auto) [place] # (Auto) Eos # (Auto) Baso # (Auto) PT INR APTT Sodium Potassium Chloride Carbon Dioxide BUN Creatinine Estimated GFR BUN/Creatinine Ratio Glucose Lactate 1.9 Calcium Total Bilirubin 13.6 H Conjugated Bilirubin 6.8 H Unconjugated Bilirubin 1.6 H AST 283 H ALT 94 H Alkaline Phosphatase 369 H Ammonia 55 H Total Creatine Kinase 67 CK-MB (CK-2) TNP CK-MB (CK-2) Rel Index TNP Troponin I < 0.012 Total Protein 7.4 Albumin 3.5 Globulin 3.9 Albumin/Globulin Ratio 0.9 L Lipase 1149 H Procalcitonin 6.29 H Urine Color Urine Appearance Urine pH Ur Specific [place] Urine Protein Urine Glucose (UA) Urine Ketones Urine Occult Blood Urine Nitrate Urine Bilirubin Ur Bilirubin Confirm Urine Urobilinogen Ur Leukocyte Esterase Urine RBC Urine WBC Ur Transition Epith Cell Ur Renal Epithelial Cell Urine Bacteria Hyaline Casts Ur Culture Indicated? Micro UA Comment Acetaminophen < 10 Ethyl Alcohol < 10 Chlamy pneumoniae PCR Adenovirus (PCR) B. pertussis DNA (PCR) B.parapertussis DNA PCR Coronavirus OC43 (PCR) Coronavirus HKU1 (PCR) Coronavirus 229E (PCR) SARS-CoV-2 (PCR) Coronavirus NL63 (PCR) Human Metapneumovir PCR Influenza Type A (PCR) Influenza Type B (PCR) M. pneumoniae (PCR) Parainfluenza 1 (PCR) Parainfluenza 2 (PCR) Parainfluenza 3 (PCR) Parainfluenza 4 (PCR) RSV (PCR) Entero/Rhino (PCR) 06/11/22 06/11/22 06/11/22 15:36 15:55 21:30 WBC RBC Hgb Hct MCV MCH MCHC RDW Plt Count Neut % (Auto) Lymph % (Auto) [place] % (Auto) Eos % (Auto) Baso % (Auto) Neut # (Auto) Lymph # (Auto) [place] # (Auto) Eos # (Auto) Baso # (Auto) PT INR APTT Sodium Potassium Chloride Carbon Dioxide BUN Creatinine Estimated GFR BUN/Creatinine Ratio Glucose Lactate 1.7 Calcium Total Bilirubin Conjugated Bilirubin Unconjugated Bilirubin AST ALT Alkaline Phosphatase Ammonia Total Creatine Kinase CK-MB (CK-2) CK-MB (CK-2) Rel Index Troponin I Total Protein Albumin Globulin Albumin/Globulin Ratio Lipase Procalcitonin Urine Color Dark yellow Urine Appearance Clear Urine pH 5.5 Ur Specific [place] 1.020 Urine Protein Trace H Urine Glucose (UA) Negative Urine Ketones Trace H Urine Occult Blood Negative Urine Nitrate Positive H Urine Bilirubin 3+ H Ur Bilirubin Confirm Positive H Urine Urobilinogen 2.0 H Ur Leukocyte Esterase Negative Urine RBC 1-5/hpf Urine WBC 1-5/hpf Ur Transition Epith Cell 0-1/hpf Ur Renal Epithelial Cell 0-1/hpf Urine Bacteria Occasional (0-1) Hyaline Casts 1-5/lpf Ur Culture Indicated? Specimen cultured Micro UA Comment 1+ oval fat bodies Acetaminophen Ethyl Alcohol Chlamy pneumoniae PCR Not detected Adenovirus (PCR) Not detected B. pertussis DNA (PCR) Not detected B.parapertussis DNA PCR Not detected Coronavirus OC43 (PCR) Not detected Coronavirus HKU1 (PCR) Not detected Coronavirus 229E (PCR) Not detected SARS-CoV-2 (PCR) Not detected Coronavirus NL63 (PCR) Not detected Human Metapneumovir PCR Not detected Influenza Type A (PCR) Not detected Influenza Type B (PCR) Not detected M. pneumoniae (PCR) Not detected Parainfluenza 1 (PCR) Not detected Parainfluenza 2 (PCR) Not detected Parainfluenza 3 (PCR) Not detected Parainfluenza 4 (PCR) Not detected RSV (PCR) Not detected Entero/Rhino (PCR) Not detected Assessment & Plan Assessment & Plan narrative: Mr. 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 Patient admitted to the ICU with sepsis without septic shock, UTI, transaminitis likely secondary to metastatic disease. After bedside discussion with the patient regarding the significance of his disease process, the patient wishes to change his code status to DNR, and is open to consult from palliative care and hospice. Will admit patient for treatment of sepsis/UTI, hydration IV antibiotics, pain management, trending transaminitis, pallative careHospice consult. 1. Sepsis without septic shock, acute likely secondary to UTI, present on admission -sepsis bolus in ED given, Rocephin and Zosyn -sofa score:7-platelets 102, MAP<70, bili 13.6, initial GCS 14, procalcitonin 6.29, lactate 1.0, positive urinalysis culture pending. -patient admitted to the ICU to be managed by tele autocad draftsman Dr. Diaz, consult ordered -Pt, OT, -continue Zosyn and Rocephin, NS at 100 cc/HR -CRP, ESR, LDH, PT, INR, CXR ordered 2. Metastatic disease, lungs, adrenal, liver, acute, with abdominal/back/left shoulder pain, present on admission -palliative care, hospice consults ordered -pain management, antiemetics -f/u with oncology as scheduled -CXR: 1. Low lung volumes with pulmonary vascular prominence consistent with pulmonary edema or vascular crowding. 2. Patchy opacities within the left lung base may represent consolidation or mass lesions.? ABD U/S:1. Numerous hepatic lesions concerning for extensive liver metastases. 2. Small amount of ascites fluid in right upper quadrant abdomen. 3. No gallstones.? No sonographic evidence of acute cholecystitis.? No gross biliary ductal dilatation. A/P MRI: Innumerable hepatic lesions are present, highly suspicious for diffuse hepatic metastases. 2. Nodular pleural thickening in the left hemithorax suspicious for pleural metastases. 3. Bilateral adrenal thickening, indeterminate. 4. No biliary dilation. No findings to suggest common bile duct obstruction. 5. Trace amount of ascites and liver and spleen. 3. UTI, acute, present on admission -history of urinary retention requiring Weiner placement -UA positive for protein, nitrates, bacteria-culture pending -patient placed on Zosyn and Rocephin -NS at 100 cc/HR -bladder scans as needed if greater than 500 cc straight cath, 2nd time greater than 500 cc Weiner placement 4. Transaminitis, acute on chronic, likely secondary to metastatic disease, present on admission -see imaging results above -abdominal distension, with ascites, generalized edema, generalized icterus to include scleral icterus on admit -initial laboratory findings bili 13.6, AST 283, ALT 94, alk-phos 369 ETOH negative, ammonia 55. -CRP, LDH, ESR, amylase ordered -strict I&O -lactulose 20 g 3 times daily -trend daily -hepatitis panel pending 5. Type 2 Diabetes, [id number], with hyperlipidemia chronic, present on admission -holding metformin, continue Lipitor -initial glucose 90 -given insulin sliding scale, admitted under diabetic protocol -a1c 7.5% 6. Essential hypertension with history of CAD and stent placement, chronic, present on admission -due to current hypotension holding the patient's losartan and metoprolol 7. Overweight, mild, acute on chronic, present on admission -likely secondary to metastatic disease/ascites/edema-BMI 28 -dietary consult ordered regarding nutritional education and information for dietary -the patient is at much higher risk for medical and surgical complications due to obesity as it relates to chronic illnesses:, and acute illness. The patient's obesity increases the difficulty and complexity of medical and/or surgical interventions, management and increases the chances of poor outcome such as morbidity and mortality as well as impaired wound healing. 8.. Active smoker, acute, present on admission -encourage cessation Code status: After bedside discussion with patient regarding his metastatic advanced disease he requested to change full code to DNR status. Surrogate decision maker: Andie Vazquez, family KATARZYNA PCR:Negative DVT/VTE prophylaxis: Lovenox and SCDs Disposition: Patient admitted to ICU observation, expected length of stay less than 2 midnights. I have utilized all available immediate resources to obtain, update, or review the patient's current medications. I confirmed that the patient's advanced care plan is present, Code status is documented and/or surrogate decision maker is listed in the patient's medical record. I have personally reviewed patient's chart notes from PCP, specialists, diagnostic imaging, and laboratory results. Time Spent With Patient Critical Care time: I spent a total of [] minutes of critical care time on this patient's care today; this time is exclusive of procedural time.
[2022-06-11 23:26] LABS: Magnesium 1.9 mg/dL (1.6-2.3)
[2022-06-11 23:42] LABS: Amylase 68 U/L (30-110); Phosphorous 2.8 mg/dL (2.3-3.7)
[2022-06-11 23:51] LABS: NT-proBNP (BNP-Adult 18+) 736 pg/mL (<125)
[2022-06-12] VITALS (49 sets, daily range): BP systolic 78–118; BP diastolic 50–89; PULSE 58–110; RESP 9–26; TEMP 36.2–36.9; O2SAT 83–99; BMI 25.9
[2022-06-12 00:36] LABS: C-Reactive Protein Quant 6.5 mg/dL (<1.0); Lactate Dehydrogenase 365 U/L (120-246)
[2022-06-12] MEDS: HYDROMORPHONE 2 MG TABLET PO ×2 (00:53→09:17)
[2022-06-12] MEDS: cefTRIAXone 1,000 MG in SODIUM CHLORIDE 0.9% 100 ML 200 MG IV (01:22)
[2022-06-12] MEDS: SODIUM CHLORIDE 0.9% 1,000 ML 100 ML IV ×3 (01:27→21:00)
--- NOTE | 2022-06-12 01:29 | PC.NURSE ---
Addendum entered by Palma Pepper R.N. 06/12/22 05:44: Blood pressure with mean etween 60-65, called to Dr. Centeno and given 500cc fluid bolus infusing presently. Addendum entered by Palma Pepper R.N. 06/12/22 03:13: Dr. Centeno talking to patient and Shade GARCIA at bedside to talk to patient. Patient deciding to opt for DNR status and further consults to come in the morning. Checked on patient for more pain medication, and found sleeping soundly. Original Note: Received patient from ed in no distress. Patient awake alert, but complaining of severe abdominal pain upon arrival. Patient medicated after interview and awaiting results.
[2022-06-12 01:31] LABS: Erythrocyte Sedimentation Rate 22 MM/HR (0-15)
[2022-06-12 01:32] LABS: Hemoglobin A1C% w Est Avg Glu 7.5 % (4.0-6.0)
[2022-06-12] MEDS: PIPERACILLIN/TAZO 3.375 GM in SODIUM CHLORIDE 0.9% 100 ML IV ×3 (02:01→17:23)
--- NOTE | 2022-06-12 02:20 | P.TELICUCN_ITS ---
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 Associated with nausea. Denies chest pain, vomiting, diarrhea, or recent sick contact. In ER, labs notable for TB 13.6, AST 283, ALT 94, ALP 369, lactic acid 1.9, troponin negative, ammonia 55, liapse 1149, and procalcitonin 6.29. Patient was noted to have soft BP which he was resuscitated with 2 liters of crystalloids. BP improved and admitted to ICU for sepsis workup. MRCP: 1. Innumerable hepatic lesions are present, highly suspicious for diffuse hepatic metastases.? 2. Nodular pleural thickening in the left hemithorax suspicious for pleural met astases. 3. Bilateral adrenal thickening, indeterminate. 4. No biliary dilation.? No findings to suggest common bile duct obstruction. 5. Trace amount of ascites and liver and spleen.? PFSH Medical History Benign essential HTN Coronary artery disease Diabetes type 2, uncontrolled Elevated blood alcohol level Heartburn Hyperlipidemia Surgical History H/O heart artery stent Family History Father Lung cancer Mother Medical history unknown Social History household members: significant other Smoking Status: Current every day smoker alcohol intake: former Current Medications Current Medications Medications: Home Medications naproxen sodium 220 mg capsule (Aleve) 220 mg PO BID 12/31/21 [History Confirmed 12/31/21] aspirin 81 mg tablet,delayed release 81 mg PO DAILY #9 tabs 01/02/22 [Rx] atorvastatin 40 mg tablet (Lipitor) 40 mg PO DAILY #90 tabs 05/11/22 [Rx Confirmed 05/11/22] losartan 50 mg tablet 50 mg PO DAILY blood pressure #90 tabs 05/11/22 [Rx Confirmed 05/11/22] metformin 500 mg tablet,extended release 24 hr 1,000 mg PO DAILY blood sugars #180 tabs 05/11/22 [Rx Confirmed 05/11/22] metoprolol succinate 25 mg tablet,extended release 24 hr 25 mg PO DAILY blood pressure #90 tabs 05/11/22 [Rx Confirmed 05/11/22] omeprazole 20 mg capsule,delayed release 20 mg PO DAILY #90 caps 05/11/22 [Rx Confirmed 05/11/22] Visit Medications (administered) Generic Name Dose Route Start Last Admin Trade Name Freq PRN Reason Stop Dose Admin Hydromorphone HCl 2 mg 06/11/22 22:28 06/12/22 00:53 Hydromorphone 2 Mg Tablet PO 2 mg Q4HR PRN Administration Pain, Moderate (4-10 Sodium Chloride 1,000 mls @ 100 mls/hr 06/11/22 22:30 06/12/22 01:27 Normal Saline 0.9% IV 100 mls/hr CONT JUAN Administration Piperacillin Sod/Tazobactam 100 mls @ 25 mls/hr 06/12/22 01:00 06/12/22 02:01 Sod 3.375 gm/ Sodium Chloride IV 25 mls/hr Q8H JUAN Administration Lactulose 20 gm 06/11/22 22:45 06/12/22 01:28 Lactulose 20 Gm/30 Ml Solution PO Not Given TID JUAN Exam Vital Signs (past 8 hours): - 06/11/22 19:00 06/11/22 19:02 06/11/22 19:02 Temperature Pulse Rate 92 H 89 Respiratory Rate Blood Pressure 96/55 L Pulse Oximetry 96 Oxygen Delivery Method Room Air 06/11/22 19:10 06/11/22 19:10 06/11/22 19:20 Temperature Pulse Rate 91 H Respiratory Rate Blood Pressure 102/61 97/61 Pulse Oximetry 96 Oxygen Delivery Method 06/11/22 19:20 06/11/22 19:30 06/11/22 19:30 Temperature Pulse Rate 87 88 Respiratory Rate Blood Pressure 96/63 Pulse Oximetry 94 95 Oxygen Delivery Method 06/11/22 19:40 06/11/22 19:40 06/11/22 19:44 Temperature Pulse Rate 87 Respiratory Rate Blood Pressure 85/49 L 105/58 L Pulse Oximetry 95 Oxygen Delivery Method 06/11/22 19:44 06/11/22 19:50 06/11/22 19:50 Temperature Pulse Rate 88 92 H Respiratory Rate Blood Pressure 112/60 Pulse Oximetry 96 97 Oxygen Delivery Method 06/11/22 20:00 06/11/22 20:00 06/11/22 20:10 Temperature Pulse Rate 91 H Respiratory Rate Blood Pressure 90/54 L 103/61 Pulse Oximetry 95 Oxygen Delivery Method 06/11/22 20:10 06/11/22 20:20 06/11/22 20:20 Temperature Pulse Rate 87 85 Respiratory Rate Blood Pressure 80/48 L Pulse Oximetry 93 93 Oxygen Delivery Method 06/11/22 20:26 06/11/22 20:26 06/11/22 20:30 Temperature Pulse Rate 89 Respiratory Rate Blood Pressure 109/63 107/62 Pulse Oximetry 96 Oxygen Delivery Method 06/11/22 20:30 06/11/22 20:40 06/11/22 20:40 Temperature Pulse Rate 85 86 Respiratory Rate Blood Pressure 88/51 L Pulse Oximetry 94 93 Oxygen Delivery Method 06/11/22 20:50 06/11/22 20:50 06/11/22 21:21 Temperature Pulse Rate 86 88 Respiratory Rate 14 Blood Pressure 89/53 L Pulse Oximetry 94 94 Oxygen Delivery Method Room Air 06/11/22 21:23 06/11/22 21:23 06/11/22 21:30 Temperature Pulse Rate 88 Respiratory Rate Blood Pressure 98/55 L 103/56 L Pulse Oximetry 97 Oxygen Delivery Method 06/11/22 21:30 06/11/22 21:40 06/11/22 21:40 Temperature Pulse Rate 85 81 Respiratory Rate 15 10 L Blood Pressure 94/54 L Pulse Oximetry 96 94 Oxygen Delivery Method 06/11/22 21:50 06/11/22 21:50 06/11/22 22:00 Temperature Pulse Rate 84 Respiratory Rate 11 L Blood Pressure 106/59 L 104/58 L Pulse Oximetry 96 Oxygen Delivery Method 06/11/22 22:00 06/11/22 22:10 06/11/22 22:10 Temperature Pulse Rate 83 84 Respiratory Rate 11 L 15 Blood Pressure 108/59 L Pulse Oximetry 95 96 Oxygen Delivery Method 06/11/22 22:20 06/11/22 22:20 06/11/22 22:30 Temperature Pulse Rate 85 Respiratory Rate 14 Blood Pressure 108/61 97/52 L Pulse Oximetry 94 Oxygen Delivery Method 06/11/22 22:30 06/11/22 22:40 06/11/22 22:40 Temperature Pulse Rate 83 83 Respiratory Rate 12 18 Blood Pressure 88/52 L Pulse Oximetry 95 96 Oxygen Delivery Method 06/11/22 22:43 06/11/22 22:43 06/11/22 22:50 Temperature Pulse Rate 86 Respiratory Rate 16 Blood Pressure 96/51 L 88/49 L Pulse Oximetry 98 Oxygen Delivery Method 06/11/22 22:50 06/11/22 23:00 06/11/22 23:00 Temperature Pulse Rate 83 87 Respiratory Rate 22 19 Blood Pressure 112/59 L Pulse Oximetry 97 96 Oxygen Delivery Method 06/11/22 23:30 06/12/22 00:00 06/12/22 00:33 Temperature 97.2 F L Pulse Rate 86 82 89 Respiratory Rate 16 17 18 Blood Pressure 114/89 Pulse Oximetry 96 95 97 Oxygen Delivery Method 06/12/22 00:40 06/12/22 00:40 06/12/22 01:00 Temperature Pulse Rate 91 H Respiratory Rate Blood Pressure 114/86 108/58 L Pulse Oximetry 96 Oxygen Delivery Method 06/12/22 01:00 06/12/22 01:26 06/12/22 02:00 Temperature Pulse Rate 88 91 H Respiratory Rate 17 16 Blood Pressure 99/54 L Pulse Oximetry 98 98 Oxygen Delivery Method 06/12/22 02:00 06/12/22 02:05 Temperature Pulse Rate 84 83 Respiratory Rate 20 12 Blood Pressure Pulse Oximetry 96 94 Oxygen Delivery Method Oxygen Delivery Method Room Air Narrative Exam Narrative: NAD, Awake and speaking in full sentence. Objective Labs 06/11/22 15:13 06/11/22 15:13 Labs: Laboratory Results - last 24 hr 06/11/22 06/11/22 06/11/22 15:13 15:13 15:13 WBC 7.7 RBC 5.47 Hgb 15.5 Hct 46.5 MCV 84.9 MCH 28.3 MCHC 33.3 RDW 15.5 H Plt Count 102 L Neut % (Auto) 68.7 Lymph % (Auto) 18.7 L [place] % (Auto) 10.9 Eos % (Auto) 0.6 L Baso % (Auto) 1.1 Neut # (Auto) 5300 Lymph # (Auto) 1400 [place] # (Auto) 800 Eos # (Auto) 0 Baso # (Auto) 100 ESR PT 16.3 H INR 1.4 H APTT 33 Sodium 138 Potassium 5.1 Chloride 104 Carbon Dioxide 21 L BUN 26 H Creatinine 0.98 Estimated GFR > 60 BUN/Creatinine Ratio 26.5 H Glucose 90 Hemoglobin A1c Lactate Calcium 9.5 Phosphorus Magnesium Total Bilirubin Conjugated Bilirubin Unconjugated Bilirubin AST ALT Alkaline Phosphatase Ammonia Lactate Dehydrogenase Total Creatine Kinase CK-MB (CK-2) CK-MB (CK-2) Rel Index Troponin I C-Reactive Protein NT-Pro-B Natriuret Pep Total Protein Albumin Globulin Albumin/Globulin Ratio Amylase Lipase Procalcitonin Urine Color Urine Appearance Urine pH Ur Specific [place] Urine Protein Urine Glucose (UA) Urine Ketones Urine Occult Blood Urine Nitrate Urine Bilirubin Ur Bilirubin Confirm Urine Urobilinogen Ur Leukocyte Esterase Urine RBC Urine WBC Ur Transition Epith Cell Ur Renal Epithelial Cell Urine Bacteria Hyaline Casts Ur Culture Indicated? Micro UA Comment Acetaminophen Ethyl Alcohol Chlamy pneumoniae PCR Adenovirus (PCR) B. pertussis DNA (PCR) B.parapertussis DNA PCR Coronavirus OC43 (PCR) Coronavirus HKU1 (PCR) Coronavirus 229E (PCR) SARS-CoV-2 (PCR) Coronavirus NL63 (PCR) Human Metapneumovir PCR Influenza Type A (PCR) Influenza Type B (PCR) M. pneumoniae (PCR) Parainfluenza 1 (PCR) Parainfluenza 2 (PCR) Parainfluenza 3 (PCR) Parainfluenza 4 (PCR) RSV (PCR) Entero/Rhino (PCR) 06/11/22 06/11/22 06/11/22 15:13 15:13 15:22 WBC RBC Hgb Hct MCV MCH MCHC RDW Plt Count Neut % (Auto) Lymph % (Auto) [place] % (Auto) Eos % (Auto) Baso % (Auto) Neut # (Auto) Lymph # (Auto) [place] # (Auto) Eos # (Auto) Baso # (Auto) ESR PT INR APTT Sodium Potassium Chloride Carbon Dioxide BUN Creatinine Estimated GFR BUN/Creatinine Ratio Glucose Hemoglobin A1c Lactate 1.9 Calcium Phosphorus Magnesium Total Bilirubin 13.6 H Conjugated Bilirubin 6.8 H Unconjugated Bilirubin 1.6 H AST 283 H ALT 94 H Alkaline Phosphatase 369 H Ammonia 55 H Lactate Dehydrogenase Total Creatine Kinase 67 CK-MB (CK-2) TNP CK-MB (CK-2) Rel Index TNP Troponin I < 0.012 C-Reactive Protein NT-Pro-B Natriuret Pep Total Protein 7.4 Albumin 3.5 Globulin 3.9 Albumin/Globulin Ratio 0.9 L Amylase Lipase 1149 H Procalcitonin 6.29 H Urine Color Urine Appearance Urine pH Ur Specific [place] Urine Protein Urine Glucose (UA) Urine Ketones Urine Occult Blood Urine Nitrate Urine Bilirubin Ur Bilirubin Confirm Urine Urobilinogen Ur Leukocyte Esterase Urine RBC Urine WBC Ur Transition Epith Cell Ur Renal Epithelial Cell Urine Bacteria Hyaline Casts Ur Culture Indicated? Micro UA Comment Acetaminophen < 10 Ethyl Alcohol < 10 Chlamy pneumoniae PCR Adenovirus (PCR) B. pertussis DNA (PCR) B.parapertussis DNA PCR Coronavirus OC43 (PCR) Coronavirus HKU1 (PCR) Coronavirus 229E (PCR) SARS-CoV-2 (PCR) Coronavirus NL63 (PCR) Human Metapneumovir PCR Influenza Type A (PCR) Influenza Type B (PCR) M. pneumoniae (PCR) Parainfluenza 1 (PCR) Parainfluenza 2 (PCR) Parainfluenza 3 (PCR) Parainfluenza 4 (PCR) RSV (PCR) Entero/Rhino (PCR) 06/11/22 06/11/22 06/11/22 15:36 15:55 21:30 WBC RBC Hgb Hct MCV MCH MCHC RDW Plt Count Neut % (Auto) Lymph % (Auto) [place] % (Auto) Eos % (Auto) Baso % (Auto) Neut # (Auto) Lymph # (Auto) [place] # (Auto) Eos # (Auto) Baso # (Auto) ESR PT INR APTT Sodium Potassium Chloride Carbon Dioxide BUN Creatinine Estimated GFR BUN/Creatinine Ratio Glucose Hemoglobin A1c Lactate 1.7 Calcium Phosphorus Magnesium Total Bilirubin Conjugated Bilirubin Unconjugated Bilirubin AST ALT Alkaline Phosphatase Ammonia Lactate Dehydrogenase Total Creatine Kinase CK-MB (CK-2) CK-MB (CK-2) Rel Index Troponin I C-Reactive Protein NT-Pro-B Natriuret Pep Total Protein Albumin Globulin Albumin/Globulin Ratio Amylase Lipase Procalcitonin Urine Color Dark yellow Urine Appearance Clear Urine pH 5.5 Ur Specific [place] 1.020 Urine Protein Trace H Urine Glucose (UA) Negative Urine Ketones Trace H Urine Occult Blood Negative Urine Nitrate Positive H Urine Bilirubin 3+ H Ur Bilirubin Confirm Positive H Urine Urobilinogen 2.0 H Ur Leukocyte Esterase Negative Urine RBC 1-5/hpf Urine WBC 1-5/hpf Ur Transition Epith Cell 0-1/hpf Ur Renal Epithelial Cell 0-1/hpf Urine Bacteria Occasional (0-1) Hyaline Casts 1-5/lpf Ur Culture Indicated? Specimen cultured Micro UA Comment 1+ oval fat bodies Acetaminophen Ethyl Alcohol Chlamy pneumoniae PCR Not detected Adenovirus (PCR) Not detected B. pertussis DNA (PCR) Not detected B.parapertussis DNA PCR Not detected Coronavirus OC43 (PCR) Not detected Coronavirus HKU1 (PCR) Not detected Coronavirus 229E (PCR) Not detected SARS-CoV-2 (PCR) Not detected Coronavirus NL63 (PCR) Not detected Human Metapneumovir PCR Not detected Influenza Type A (PCR) Not detected Influenza Type B (PCR) Not detected M. pneumoniae (PCR) Not detected Parainfluenza 1 (PCR) Not detected Parainfluenza 2 (PCR) Not detected Parainfluenza 3 (PCR) Not detected Parainfluenza 4 (PCR) Not detected RSV (PCR) Not detected Entero/Rhino (PCR) Not detected 06/11/22 06/11/22 06/11/22 22:40 22:40 22:40 WBC RBC Hgb Hct MCV MCH MCHC RDW Plt Count Neut % (Auto) Lymph % (Auto) [place] % (Auto) Eos % (Auto) Baso % (Auto) Neut # (Auto) Lymph # (Auto) [place] # (Auto) Eos # (Auto) Baso # (Auto) ESR PT INR APTT Sodium Potassium Chloride Carbon Dioxide BUN Creatinine Estimated GFR BUN/Creatinine Ratio Glucose Hemoglobin A1c 7.5 H Lactate Calcium Phosphorus Magnesium 1.9 Total Bilirubin Conjugated Bilirubin Unconjugated Bilirubin AST ALT Alkaline Phosphatase Ammonia Lactate Dehydrogenase Total Creatine Kinase CK-MB (CK-2) CK-MB (CK-2) Rel Index Troponin I C-Reactive Protein NT-Pro-B Natriuret Pep 736 H Total Protein Albumin Globulin Albumin/Globulin Ratio Amylase Lipase Procalcitonin Urine Color Urine Appearance Urine pH Ur Specific [place] Urine Protein Urine Glucose (UA) Urine Ketones Urine Occult Blood Urine Nitrate Urine Bilirubin Ur Bilirubin Confirm Urine Urobilinogen Ur Leukocyte Esterase Urine RBC Urine WBC Ur Transition Epith Cell Ur Renal Epithelial Cell Urine Bacteria Hyaline Casts Ur Culture Indicated? Micro UA Comment Acetaminophen Ethyl Alcohol Chlamy pneumoniae PCR Adenovirus (PCR) B. pertussis DNA (PCR) B.parapertussis DNA PCR Coronavirus OC43 (PCR) Coronavirus HKU1 (PCR) Coronavirus 229E (PCR) SARS-CoV-2 (PCR) Coronavirus NL63 (PCR) Human Metapneumovir PCR Influenza Type A (PCR) Influenza Type B (PCR) M. pneumoniae (PCR) Parainfluenza 1 (PCR) Parainfluenza 2 (PCR) Parainfluenza 3 (PCR) Parainfluenza 4 (PCR) RSV (PCR) Entero/Rhino (PCR) 06/11/22 06/11/22 06/11/22 22:40 22:40 22:40 WBC RBC Hgb Hct MCV MCH MCHC RDW Plt Count Neut % (Auto) Lymph % (Auto) [place] % (Auto) Eos % (Auto) Baso % (Auto) Neut # (Auto) Lymph # (Auto) [place] # (Auto) Eos # (Auto) Baso # (Auto) ESR 22 H PT INR APTT Sodium Potassium Chloride Carbon Dioxide BUN Creatinine Estimated GFR BUN/Creatinine Ratio Glucose Hemoglobin A1c Lactate Calcium Phosphorus 2.8 Magnesium Total Bilirubin Conjugated Bilirubin Unconjugated Bilirubin AST ALT Alkaline Phosphatase Ammonia Lactate Dehydrogenase 365 H Total Creatine Kinase CK-MB (CK-2) CK-MB (CK-2) Rel Index Troponin I C-Reactive Protein 6.5 H NT-Pro-B Natriuret Pep Total Protein Albumin Globulin Albumin/Globulin Ratio Amylase 68 Lipase Procalcitonin Urine Color Urine Appearance Urine pH Ur Specific [place] Urine Protein Urine Glucose (UA) Urine Ketones Urine Occult Blood Urine Nitrate Urine Bilirubin Ur Bilirubin Confirm Urine Urobilinogen Ur Leukocyte Esterase Urine RBC Urine WBC Ur Transition Epith Cell Ur Renal Epithelial Cell Urine Bacteria Hyaline Casts Ur Culture Indicated? Micro UA Comment Acetaminophen Ethyl Alcohol Chlamy pneumoniae PCR Adenovirus (PCR) B. pertussis DNA (PCR) B.parapertussis DNA PCR Coronavirus OC43 (PCR) Coronavirus HKU1 (PCR) Coronavirus 229E (PCR) SARS-CoV-2 (PCR) Coronavirus NL63 (PCR) Human Metapneumovir PCR Influenza Type A (PCR) Influenza Type B (PCR) M. pneumoniae (PCR) Parainfluenza 1 (PCR) Parainfluenza 2 (PCR) Parainfluenza 3 (PCR) Parainfluenza 4 (PCR) RSV (PCR) Entero/Rhino (PCR) Assessment & Plan Assessment & Plan narrative: NEURO: -- Seek PT/OT -- Encourage early mobility RESP: -- On room air -- Encourage IS and OOB as tolerated CVS: # Hypotension -- Secondary to sepsis -- SEpsis rx as below -- cont IVF resuscitation -- If failed to respond to fluids then will start levophed -- MAP goal > 65 ID: # Severe sepsis -- Secondary to gut translocation vs SBP vs UTI -- Follow up cx -- On zosyn -- Cont crystalloid resuscitation GI: # Abnormal LFTs -- Secondary to metastatic disease of unknown primary tumor -- Need oncology follow up -- MRCP reassure biliary tree is normal -- Zosyn as above -- Trend LFTs HEME: # Metastatic disease w/ unknown primary -- Recommend GOC and code status clarification -- Oncology follow up ENDO: -- GOal BS < 180 D/w bedside RN and EDDIE Norma Laguerre. Time Spent With Patient Critical Care time: I spent a total of [] minutes of critical care time on this patient's care today; this time is exclusive of procedural time.
[2022-06-12 03:33] LABS: MRSA (Nasal) PCR Not Detected (Not Detect)
[2022-06-12 05:28] LABS: Add Manual Diff / Slide Review NO; Basophils Absolute Auto 0 /uL (0-100); Basophils Percent Auto 0.9 % (0-2); Eosinophils Absolute Auto 100 /uL (0-450); Eosinophils Percent Auto 1.1 % (2-4); Hematocrit 42.1 % (41-53); Lymphocytes Absolute Auto 1000 /uL (1100-4500); Lymphocytes Percent Auto 19.9 % (25-40); Mean Corpuscular HGB Conc 33.2 % (30-36); Mean Corpuscular Hemoglobin 28.6 PG (26-34); Mean Corpuscular Volume 86.2 fL (80-100); Monocytes Absolute Auto 700 /uL (0-900); Monocytes Percent Auto 13.5 % (3-14); Neutrophils Absolute Auto 3300 /uL (1500-7000); Neutrophils Percent Auto 64.6 % (50-75); Platelet Count 65 X10^3/uL (150-400); Red Blood Cell Count 4.88 X10^6/uL (4.5-5.9); Red Cell Distribution Width 16.1 % (11.6-14.8); White Blood Cell Count 5.1 X10^3/uL (4.5-11.0)
[2022-06-12] MEDS: LACTATED RINGERS 500 ML 1000 ML IV (05:33)
[2022-06-12 05:55] LABS: Alanine Aminotransferase 75 IU/L (<50); Albumin 2.6 g/dL (3.5-5.0); Albumin Globulin Ratio 0.9 (1.0-2.8); Alkaline Phosphatase 282 U/L (38-126); Aspartate Aminotransferase 201 IU/L (17-59); BUN Creatinine Ratio 23.8 (6-22); Blood Urea Nitrogen 25 mg/dL (9-20); Calcium 8.3 mg/dL (8.4-10.2); Carbon Dioxide 18 mmol/L (22-32); Chloride 113 mmol/L (98-107); Estimated Glomerular Filt Rate > 60 mL/min (>60); Glucose 73 mg/dL (80-110); HEMOLYSIS < 15 (0-50); Magnesium 1.8 mg/dL (1.6-2.3); Potassium 3.9 mmol/L (3.4-5.1); Sodium 141 mmol/L (137-145); Total Protein 5.6 g/dL (6.3-8.2)
[2022-06-12] MEDS: PANTOPRAZOLE DR 20 MG TABLET PO (06:08)
[2022-06-12 06:36] LABS: INR 1.4 (0.9-1.3); Prothrombin Time 16.5 SECONDS (10.1-12.7)
[2022-06-12] MEDS: ONDANSETRON 4 MG/2 ML INJ IV (08:10)
[2022-06-12] MEDS: ENOXAPARIN 40 MG/0.4 ML SYRINGE SUBCUT (08:25)
[2022-06-12] MEDS: LACTULOSE 20 GM/30 ML SOLUTION PO (08:25)
--- NOTE | 2022-06-12 08:57 | PM.PN.1 ---
Subjective Subjective Interval history: Patient is alot of pain and dilaudid not helping much. A 18 minute discussion was had about patient's goals and he notes he has an oncology appt in 3 days. He knows he has cancer and isn't sure if he wants to do chemo. He is open to hospice meeting with him. Exam Vital Signs (past 8 hours): - 06/12/22 01:00 06/12/22 01:00 06/12/22 01:26 Temperature Pulse Rate 88 91 H Respiratory Rate 17 16 Blood Pressure 108/58 L Pulse Oximetry 98 98 06/12/22 02:00 06/12/22 02:00 06/12/22 02:05 Temperature Pulse Rate 84 83 Respiratory Rate 20 12 Blood Pressure 99/54 L Pulse Oximetry 96 94 06/12/22 03:00 06/12/22 03:00 06/12/22 04:00 Temperature Pulse Rate 84 82 Respiratory Rate 14 11 L Blood Pressure 97/57 L Pulse Oximetry 92 93 06/12/22 04:00 06/12/22 04:01 06/12/22 04:01 Temperature 97.2 F L Pulse Rate 82 Respiratory Rate 10 L Blood Pressure 78/50 L 84/51 L Pulse Oximetry 93 06/12/22 04:19 06/12/22 05:00 06/12/22 05:00 Temperature Pulse Rate 81 82 Respiratory Rate 10 L 12 Blood Pressure 89/52 L Pulse Oximetry 93 94 06/12/22 05:28 06/12/22 06:00 06/12/22 06:00 Temperature Pulse Rate 83 92 H Respiratory Rate 16 21 Blood Pressure 118/64 Pulse Oximetry 93 95 06/12/22 06:58 06/12/22 07:00 06/12/22 07:00 Temperature 98.1 F Pulse Rate 86 86 Respiratory Rate 13 16 Blood Pressure 97/56 L Pulse Oximetry 93 94 Oxygen Delivery Method Room Air Narrative Exam Narrative: General: Patient is a well-developed, well-nourished ill-appearing icterus male with generalized edema, appears in pain HEENT: Normocephalic, atraumatic, sclera icterus, extraocular muscles intact, oral pharynx is clear and mucous membranes are moist. Neck is supple and symmetric, trachea is midline, no adenopathy, no thyroid enlargement, nontender, no masses palpated. Negative for JVD Chest: Breathing without nasal flaring, retractions, or tachypneic labored (RR14) Lungs: Auscultation of all lung [place] are clear without adventitious sounds, wheezes, rhonchi, or rales. Cardio: S1 & S2 with regular rate and rhythm without murmur, rubs, or gallops, no carotid bruit, no cardiac pulsations present. Abdomen: Slightly distended, tender to palpation generalized, firm, Bowel sounds are hypoactive present in all 4 quadrants, no CVA tenderness. Musculoskeletal: Muscle strength and tone are equal, no deformity, crepitus, effusions, cyanosis, clubbing present. Full range of motion intact radial and pedal pulses are normal. Skin: Icterus, generalized edema, Warm dry and intact without rashes, ulcerations or petechiae. Neuro: Alert and orientated x3, moves all extremities, sensation to touch intact, no gross deficits noted of cranial nerves. Psych: Patient has a well-kept appearance, appropriate affect, possible delayed or baseline cognitive impairment, mental status attitude thought context, comprehension and judgment are inappropriate for age and situation. Objective Labs 06/12/22 05:14 06/12/22 05:14 Labs: Laboratory Results - last 24 hr 06/11/22 06/11/22 06/11/22 15:13 15:13 15:13 WBC 7.7 RBC 5.47 Hgb 15.5 Hct 46.5 MCV 84.9 MCH 28.3 MCHC 33.3 RDW 15.5 H Plt Count 102 L Neut % (Auto) 68.7 Lymph % (Auto) 18.7 L [place] % (Auto) 10.9 Eos % (Auto) 0.6 L Baso % (Auto) 1.1 Neut # (Auto) 5300 Lymph # (Auto) 1400 [place] # (Auto) 800 Eos # (Auto) 0 Baso # (Auto) 100 ESR PT 16.3 H INR 1.4 H APTT 33 Sodium 138 Potassium 5.1 Chloride 104 Carbon Dioxide 21 L BUN 26 H Creatinine 0.98 Estimated GFR > 60 BUN/Creatinine Ratio 26.5 H Glucose 90 Hemoglobin A1c Lactate Calcium 9.5 Phosphorus Magnesium Total Bilirubin Conjugated Bilirubin Unconjugated Bilirubin AST ALT Alkaline Phosphatase Ammonia Lactate Dehydrogenase Total Creatine Kinase CK-MB (CK-2) CK-MB (CK-2) Rel Index Troponin I C-Reactive Protein NT-Pro-B Natriuret Pep Total Protein Albumin Globulin Albumin/Globulin Ratio Amylase Lipase Procalcitonin Urine Color Urine Appearance Urine pH Ur Specific [place] Urine Protein Urine Glucose (UA) Urine Ketones Urine Occult Blood Urine Nitrate Urine Bilirubin Ur Bilirubin Confirm Urine Urobilinogen Ur Leukocyte Esterase Urine RBC Urine WBC Ur Transition Epith Cell Ur Renal Epithelial Cell Urine Bacteria Hyaline Casts Ur Culture Indicated? Micro UA Comment Nasal Screen MRSA (PCR) Acetaminophen Ethyl Alcohol Chlamy pneumoniae PCR Adenovirus (PCR) B. pertussis DNA (PCR) B.parapertussis DNA PCR Coronavirus OC43 (PCR) Coronavirus HKU1 (PCR) Coronavirus 229E (PCR) SARS-CoV-2 (PCR) Coronavirus NL63 (PCR) Human Metapneumovir PCR Influenza Type A (PCR) Influenza Type B (PCR) M. pneumoniae (PCR) Parainfluenza 1 (PCR) Parainfluenza 2 (PCR) Parainfluenza 3 (PCR) Parainfluenza 4 (PCR) RSV (PCR) Entero/Rhino (PCR) 06/11/22 06/11/22 06/11/22 15:13 15:13 15:22 WBC RBC Hgb Hct MCV MCH MCHC RDW Plt Count Neut % (Auto) Lymph % (Auto) [place] % (Auto) Eos % (Auto) Baso % (Auto) Neut # (Auto) Lymph # (Auto) [place] # (Auto) Eos # (Auto) Baso # (Auto) ESR PT INR APTT Sodium Potassium Chloride Carbon Dioxide BUN Creatinine Estimated GFR BUN/Creatinine Ratio Glucose Hemoglobin A1c Lactate 1.9 Calcium Phosphorus Magnesium Total Bilirubin 13.6 H Conjugated Bilirubin 6.8 H Unconjugated Bilirubin 1.6 H AST 283 H ALT 94 H Alkaline Phosphatase 369 H Ammonia 55 H Lactate Dehydrogenase Total Creatine Kinase 67 CK-MB (CK-2) TNP CK-MB (CK-2) Rel Index TNP Troponin I < 0.012 C-Reactive Protein NT-Pro-B Natriuret Pep Total Protein 7.4 Albumin 3.5 Globulin 3.9 Albumin/Globulin Ratio 0.9 L Amylase Lipase 1149 H Procalcitonin 6.29 H Urine Color Urine Appearance Urine pH Ur Specific [place] Urine Protein Urine Glucose (UA) Urine Ketones Urine Occult Blood Urine Nitrate Urine Bilirubin Ur Bilirubin Confirm Urine Urobilinogen Ur Leukocyte Esterase Urine RBC Urine WBC Ur Transition Epith Cell Ur Renal Epithelial Cell Urine Bacteria Hyaline Casts Ur Culture Indicated? Micro UA Comment Nasal Screen MRSA (PCR) Acetaminophen < 10 Ethyl Alcohol < 10 Chlamy pneumoniae PCR Adenovirus (PCR) B. pertussis DNA (PCR) B.parapertussis DNA PCR Coronavirus OC43 (PCR) Coronavirus HKU1 (PCR) Coronavirus 229E (PCR) SARS-CoV-2 (PCR) Coronavirus NL63 (PCR) Human Metapneumovir PCR Influenza Type A (PCR) Influenza Type B (PCR) M. pneumoniae (PCR) Parainfluenza 1 (PCR) Parainfluenza 2 (PCR) Parainfluenza 3 (PCR) Parainfluenza 4 (PCR) RSV (PCR) Entero/Rhino (PCR) 06/11/22 06/11/22 06/11/22 15:36 15:55 21:30 WBC RBC Hgb Hct MCV MCH MCHC RDW Plt Count Neut % (Auto) Lymph % (Auto) [place] % (Auto) Eos % (Auto) Baso % (Auto) Neut # (Auto) Lymph # (Auto) [place] # (Auto) Eos # (Auto) Baso # (Auto) ESR PT INR APTT Sodium Potassium Chloride Carbon Dioxide BUN Creatinine Estimated GFR BUN/Creatinine Ratio Glucose Hemoglobin A1c Lactate 1.7 Calcium Phosphorus Magnesium Total Bilirubin Conjugated Bilirubin Unconjugated Bilirubin AST ALT Alkaline Phosphatase Ammonia Lactate Dehydrogenase Total Creatine Kinase CK-MB (CK-2) CK-MB (CK-2) Rel Index Troponin I C-Reactive Protein NT-Pro-B Natriuret Pep Total Protein Albumin Globulin Albumin/Globulin Ratio Amylase Lipase Procalcitonin Urine Color Dark yellow Urine Appearance Clear Urine pH 5.5 Ur Specific [place] 1.020 Urine Protein Trace H Urine Glucose (UA) Negative Urine Ketones Trace H Urine Occult Blood Negative Urine Nitrate Positive H Urine Bilirubin 3+ H Ur Bilirubin Confirm Positive H Urine Urobilinogen 2.0 H Ur Leukocyte Esterase Negative Urine RBC 1-5/hpf Urine WBC 1-5/hpf Ur Transition Epith Cell 0-1/hpf Ur Renal Epithelial Cell 0-1/hpf Urine Bacteria Occasional (0-1) Hyaline Casts 1-5/lpf Ur Culture Indicated? Specimen cultured Micro UA Comment 1+ oval fat bodies Nasal Screen MRSA (PCR) Acetaminophen Ethyl Alcohol Chlamy pneumoniae PCR Not detected Adenovirus (PCR) Not detected B. pertussis DNA (PCR) Not detected B.parapertussis DNA PCR Not detected Coronavirus OC43 (PCR) Not detected Coronavirus HKU1 (PCR) Not detected Coronavirus 229E (PCR) Not detected SARS-CoV-2 (PCR) Not detected Coronavirus NL63 (PCR) Not detected Human Metapneumovir PCR Not detected Influenza Type A (PCR) Not detected Influenza Type B (PCR) Not detected M. pneumoniae (PCR) Not detected Parainfluenza 1 (PCR) Not detected Parainfluenza 2 (PCR) Not detected Parainfluenza 3 (PCR) Not detected Parainfluenza 4 (PCR) Not detected RSV (PCR) Not detected Entero/Rhino (PCR) Not detected 06/11/22 06/11/22 06/11/22 22:40 22:40 22:40 WBC RBC Hgb Hct MCV MCH MCHC RDW Plt Count Neut % (Auto) Lymph % (Auto) [place] % (Auto) Eos % (Auto) Baso % (Auto) Neut # (Auto) Lymph # (Auto) [place] # (Auto) Eos # (Auto) Baso # (Auto) ESR PT INR APTT Sodium Potassium Chloride Carbon Dioxide BUN Creatinine Estimated GFR BUN/Creatinine Ratio Glucose Hemoglobin A1c 7.5 H Lactate Calcium Phosphorus Magnesium 1.9 Total Bilirubin Conjugated Bilirubin Unconjugated Bilirubin AST ALT Alkaline Phosphatase Ammonia Lactate Dehydrogenase Total Creatine Kinase CK-MB (CK-2) CK-MB (CK-2) Rel Index Troponin I C-Reactive Protein NT-Pro-B Natriuret Pep 736 H Total Protein Albumin Globulin Albumin/Globulin Ratio Amylase Lipase Procalcitonin Urine Color Urine Appearance Urine pH Ur Specific [place] Urine Protein Urine Glucose (UA) Urine Ketones Urine Occult Blood Urine Nitrate Urine Bilirubin Ur Bilirubin Confirm Urine Urobilinogen Ur Leukocyte Esterase Urine RBC Urine WBC Ur Transition Epith Cell Ur Renal Epithelial Cell Urine Bacteria Hyaline Casts Ur Culture Indicated? Micro UA Comment Nasal Screen MRSA (PCR) Acetaminophen Ethyl Alcohol Chlamy pneumoniae PCR Adenovirus (PCR) B. pertussis DNA (PCR) B.parapertussis DNA PCR Coronavirus OC43 (PCR) Coronavirus HKU1 (PCR) Coronavirus 229E (PCR) SARS-CoV-2 (PCR) Coronavirus NL63 (PCR) Human Metapneumovir PCR Influenza Type A (PCR) Influenza Type B (PCR) M. pneumoniae (PCR) Parainfluenza 1 (PCR) Parainfluenza 2 (PCR) Parainfluenza 3 (PCR) Parainfluenza 4 (PCR) RSV (PCR) Entero/Rhino (PCR) 06/11/22 06/11/22 06/11/22 22:40 22:40 22:40 WBC RBC Hgb Hct MCV MCH MCHC RDW Plt Count Neut % (Auto) Lymph % (Auto) [place] % (Auto) Eos % (Auto) Baso % (Auto) Neut # (Auto) Lymph # (Auto) [place] # (Auto) Eos # (Auto) Baso # (Auto) ESR 22 H PT INR APTT Sodium Potassium Chloride Carbon Dioxide BUN Creatinine Estimated GFR BUN/Creatinine Ratio Glucose Hemoglobin A1c Lactate Calcium Phosphorus 2.8 Magnesium Total Bilirubin Conjugated Bilirubin Unconjugated Bilirubin AST ALT Alkaline Phosphatase Ammonia Lactate Dehydrogenase 365 H Total Creatine Kinase CK-MB (CK-2) CK-MB (CK-2) Rel Index Troponin I C-Reactive Protein 6.5 H NT-Pro-B Natriuret Pep Total Protein Albumin Globulin Albumin/Globulin Ratio Amylase 68 Lipase Procalcitonin Urine Color Urine Appearance Urine pH Ur Specific [place] Urine Protein Urine Glucose (UA) Urine Ketones Urine Occult Blood Urine Nitrate Urine Bilirubin Ur Bilirubin Confirm Urine Urobilinogen Ur Leukocyte Esterase Urine RBC Urine WBC Ur Transition Epith Cell Ur Renal Epithelial Cell Urine Bacteria Hyaline Casts Ur Culture Indicated? Micro UA Comment Nasal Screen MRSA (PCR) Acetaminophen Ethyl Alcohol Chlamy pneumoniae PCR Adenovirus (PCR) B. pertussis DNA (PCR) B.parapertussis DNA PCR Coronavirus OC43 (PCR) Coronavirus HKU1 (PCR) Coronavirus 229E (PCR) SARS-CoV-2 (PCR) Coronavirus NL63 (PCR) Human Metapneumovir PCR Influenza Type A (PCR) Influenza Type B (PCR) M. pneumoniae (PCR) Parainfluenza 1 (PCR) Parainfluenza 2 (PCR) Parainfluenza 3 (PCR) Parainfluenza 4 (PCR) RSV (PCR) Entero/Rhino (PCR) 06/12/22 06/12/22 06/12/22 00:45 05:14 05:14 WBC 5.1 RBC 4.88 Hgb 14.0 Hct 42.1 MCV 86.2 MCH 28.6 MCHC 33.2 RDW 16.1 H Plt Count 65 L Neut % (Auto) 64.6 Lymph % (Auto) 19.9 L [place] % (Auto) 13.5 Eos % (Auto) 1.1 L Baso % (Auto) 0.9 Neut # (Auto) 3300 Lymph # (Auto) 1000 L [place] # (Auto) 700 Eos # (Auto) 100 Baso # (Auto) 0 ESR PT 16.5 H INR 1.4 H APTT Sodium Potassium Chloride Carbon Dioxide BUN Creatinine Estimated GFR BUN/Creatinine Ratio Glucose Hemoglobin A1c Lactate Calcium Phosphorus Magnesium Total Bilirubin Conjugated Bilirubin Unconjugated Bilirubin AST ALT Alkaline Phosphatase Ammonia Lactate Dehydrogenase Total Creatine Kinase CK-MB (CK-2) CK-MB (CK-2) Rel Index Troponin I C-Reactive Protein NT-Pro-B Natriuret Pep Total Protein Albumin Globulin Albumin/Globulin Ratio Amylase Lipase Procalcitonin Urine Color Urine Appearance Urine pH Ur Specific [place] Urine Protein Urine Glucose (UA) Urine Ketones Urine Occult Blood Urine Nitrate Urine Bilirubin Ur Bilirubin Confirm Urine Urobilinogen Ur Leukocyte Esterase Urine RBC Urine WBC Ur Transition Epith Cell Ur Renal Epithelial Cell Urine Bacteria Hyaline Casts Ur Culture Indicated? Micro UA Comment Nasal Screen MRSA (PCR) Not detected Acetaminophen Ethyl Alcohol Chlamy pneumoniae PCR Adenovirus (PCR) B. pertussis DNA (PCR) B.parapertussis DNA PCR Coronavirus OC43 (PCR) Coronavirus HKU1 (PCR) Coronavirus 229E (PCR) SARS-CoV-2 (PCR) Coronavirus NL63 (PCR) Human Metapneumovir PCR Influenza Type A (PCR) Influenza Type B (PCR) M. pneumoniae (PCR) Parainfluenza 1 (PCR) Parainfluenza 2 (PCR) Parainfluenza 3 (PCR) Parainfluenza 4 (PCR) RSV (PCR) Entero/Rhino (PCR) 06/12/22 05:14 WBC RBC Hgb Hct MCV MCH MCHC RDW Plt Count Neut % (Auto) Lymph % (Auto) [place] % (Auto) Eos % (Auto) Baso % (Auto) Neut # (Auto) Lymph # (Auto) [place] # (Auto) Eos # (Auto) Baso # (Auto) ESR PT INR APTT Sodium 141 Potassium 3.9 D Chloride 113 H Carbon Dioxide 18 L BUN 25 H Creatinine 1.05 Estimated GFR > 60 BUN/Creatinine Ratio 23.8 H Glucose 73 L Hemoglobin A1c Lactate Calcium 8.3 L Phosphorus Magnesium 1.8 Total Bilirubin 11.0 H Conjugated Bilirubin Unconjugated Bilirubin AST 201 H ALT 75 H Alkaline Phosphatase 282 H Ammonia Lactate Dehydrogenase Total Creatine Kinase CK-MB (CK-2) CK-MB (CK-2) Rel Index Troponin I C-Reactive Protein NT-Pro-B Natriuret Pep Total Protein 5.6 L Albumin 2.6 L Globulin 3.0 Albumin/Globulin Ratio 0.9 L Amylase Lipase Procalcitonin Urine Color Urine Appearance Urine pH Ur Specific [place] Urine Protein Urine Glucose (UA) Urine Ketones Urine Occult Blood Urine Nitrate Urine Bilirubin Ur Bilirubin Confirm Urine Urobilinogen Ur Leukocyte Esterase Urine RBC Urine WBC Ur Transition Epith Cell Ur Renal Epithelial Cell Urine Bacteria Hyaline Casts Ur Culture Indicated? Micro UA Comment Nasal Screen MRSA (PCR) Acetaminophen Ethyl Alcohol Chlamy pneumoniae PCR Adenovirus (PCR) B. pertussis DNA (PCR) B.parapertussis DNA PCR Coronavirus OC43 (PCR) Coronavirus HKU1 (PCR) Coronavirus 229E (PCR) SARS-CoV-2 (PCR) Coronavirus NL63 (PCR) Human Metapneumovir PCR Influenza Type A (PCR) Influenza Type B (PCR) M. pneumoniae (PCR) Parainfluenza 1 (PCR) Parainfluenza 2 (PCR) Parainfluenza 3 (PCR) Parainfluenza 4 (PCR) RSV (PCR) Entero/Rhino (PCR) [facility] Medical History Benign essential HTN Coronary artery disease Diabetes type 2, uncontrolled Elevated blood alcohol level Heartburn Hyperlipidemia Surgical History H/O heart artery stent Family History Father Lung cancer Mother Medical history unknown Social History household members: significant other Smoking Status: Current every day smoker alcohol intake: former Assessment & Plan Assessment & Plan narrative: 1. sepsis ruled out, present on admission -sepsis bolus in ED given, Rocephin and Zosyn -sofa score:7-platelets 102, MAP<70, bili 13.6, initial GCS 14, procalcitonin 6.29, lactate 1.0, positive urinalysis culture pending. -patient admitted to the ICU to be managed by tele immunology specialist Dr. Diaz, consult ordered -WBC negative, urine and blood cultures negative. Will stop abx. 2. Metastatic disease, lungs, adrenal, liver, acute, with abdominal/back/left shoulder pain, present on admission -hospice referral placed -start methadone 5mg TID for cancer pain -f/u with oncology as scheduled on 06/15 -CXR: 1. Low lung volumes with pulmonary vascular prominence consistent with pulmonary edema or vascular crowding. 2. Patchy opacities within the left lung base may represent consolidation or mass lesions.? ABD U/S:1. Numerous hepatic lesions concerning for extensive liver metastases. 2. Small amount of ascites fluid in right upper quadrant abdomen. 3. No gallstones.? No sonographic evidence of acute cholecystitis.? No gross biliary ductal dilatation. Abd MRI: Innumerable hepatic lesions are present, highly suspicious for diffuse hepatic metastases. 2. Nodular pleural thickening in the left hemithorax suspicious for pleural metastases. 3. Bilateral adrenal thickening, indeterminate. 4. No biliary dilation. No findings to suggest common bile duct obstruction. 5. Trace amount of ascites and liver and spleen. 3. UTI ruled out, acute, present on admission -history of urinary retention requiring Weiner placement -UA positive for protein, nitrates, urine culture negative -patient placed on Zosyn and Rocephin -NS at 100 cc/HR -bladder scans as needed if greater than 500 cc straight cath, 2nd time greater than 500 cc Weiner placement 4. Transaminitis, acute on chronic, likely secondary to metastatic disease, present on admission -see imaging results above -abdominal distension, with ascites, generalized edema, generalized icterus to include scleral icterus on admit -initial laboratory findings bili 13.6, AST 283, ALT 94, alk-phos 369 ETOH negative, ammonia 55. -trend daily -hepatitis panel pending 5. Type 2 Diabetes, [id number], with hyperlipidemia chronic, present on admission -holding metformin, continue Lipitor -initial glucose 90 -given insulin sliding scale, admitted under diabetic protocol -a1c 7.5% 6. Essential hypertension with history of CAD and stent placement, chronic, present on admission -due to current hypotension holding the patient's losartan and metoprolol 7. Overweight, mild, acute on chronic, present on admission -likely secondary to metastatic disease/ascites/edema-BMI 28 -dietary consult ordered regarding nutritional education and information for dietary -the patient is at much higher risk for medical and surgical complications due to obesity as it relates to chronic illnesses:, and acute illness. The patient's obesity increases the difficulty and complexity of medical and/or surgical interventions, management and increases the chances of poor outcome such as morbidity and mortality as well as impaired wound healing. 8.. Active smoker, acute, present on admission -encourage cessation Code status: After bedside discussion with patient regarding his metastatic advanced disease he requested to change full code to DNR status. Surrogate decision maker: Andie Vazquez, family COVID PCR:Negative DVT/VTE prophylaxis: Lovenox and SCDs Disposition: Home in 1-2 days pending improvement in pain. Time Spent With Patient Critical Care time: I spent a total of [] minutes of critical care time on this patient's care today; this time is exclusive of procedural time.
--- NOTE | 2022-06-12 10:20 | OT.IPNOTE ---
Per hospitalist okay to discharge therapy orders due to hospice needs.
--- NOTE | 2022-06-12 10:30 | DIET.CONS2 ---
Dietary Inpatient Consultation Note Admission Date: 06/11/2022 23:13 RD consulted for pt with BMI 26, metastatic disease and T2DM. Pt code status changed to DNR, pt not appropriate for nutrition intervention at this time. Can reconsult depending on ultimate POC. Diet: 06/12/22 Breakfast Carbohydrate Consistent Diet Diet Modifications: Carbohydrate level: Small (2 CHO) Bedtime snack: Yes Nutrition Percent Meal Consumed 50% 06/12/22 09:08 Electronically Signed by: Latha Vázquez 06/12/22 10:30 Clinical Dietitian [address] [id number]
--- NOTE | 2022-06-12 10:49 | PT-IP ANOTE ---
Per rounds discussion we will discharge the physical therapy order. Medical team is planning comfort care with Hospice consult.
--- NOTE | 2022-06-12 12:37 | CM.DANOTE ---
Addendum entered by Kimberly Merino R.N. 06/12/22 14:48: Spoke to Margarita at [facility], she is in the palliative care department. Stated that they are booked about a month out. Asked if the patient wants treatment, let her know that conversation with hospitalist has not yet occurred today. Asked her about their hospice department, stated that they are booked out about 8-9 days. Let her know that this DC Car Framer will update them when more information is known. She encouraged to also send referral to [facility] , if no treatment, and just needs hospice. Called [facility] and spoke to Jelena. Stated that they can see patient at approximately the end of the week. They do not have palliative care services. Went ahead and faxed over the referral to [facility] . Addendum entered by Kimberly Merino R.N. 06/12/22 13:41: Faxed [facility] face sheet, H&P, med sheets, vital sign information, hospitalist is aware, he will be having the conversation with patient today. Will follow up with [facility] today. P.T. has discharged patient from their services since he is comfort care, but nursing indicated that patient is ambulating in his room. Addendum entered by Kimberly Merino R.N. 06/12/22 13:09: Confirmed that patient does not have transportation benefits with Medicaid. Attempted to reach out to patient's significant other, Andie GibsonShoaibJaneth. Her number is : [phone], was unable to leave a voice mail. Was going to attempt to see how patient gets transported, should he be discharged home. He is supposed to be working with P.T. Original Note: DCP: Case received, EMR reviewed and met with patient. Introduced self and role. Was able to obtain limited information from patient regarding baseline activity status at home, and current living situation due to language barrier, but was able to look at last admit for additional information. DCP assessment completed with information currently available. Patient is a 66 year old male who admitted yesterday evening to the care of the hospitalist team. PCP: Dr. Rodriguez. Payer: confirmed: Medicare/Medicaid. Patient came to the hospital via ambulance secondary to having generalized weakness, abdominal pain and nausea. Notes indicate that patient was recently at an outside facility for similar symptoms. It is noted that patient has been diagnosed with metastatic cancer throughout his lings and abdomen in March of 2022. Notes also indicate that he has not followed up with oncoloty or primary care doctor. Did call over at Dr. Rodriguez's office, his primary care doctor, spoke to triage nurse, Ratna. He had an appointment with him on 05/23 for new patient visit, and he has openings this week if he needs follow up. Patient was admitted for sepsis without septic shock, UTI, transaminitis secondary to metastatic disease. Met with patient in his room. He is from [facility]. Patient has been here in Dec. He resides in [place] with significant other, Andie GibsonShoaibRoxy. Patient indicated that he and she do not drive. Asked him how he gets to his appointments, and indicated that she can be contacted if more information is needed. Patient uses a cane at baseline. He lives in a second floor apt with stairs. Called over at Dr. Rodriguez's office, and spoke to Ratna, triage nurse. Confirmed that he was seen over at their clinic to be established with Dr. Rodriguez on 05/23. She also indicated that they have openings this week, if patient needs to be seen in the clinic. Asked patient how he gets to appointments, and he indicated that it's by ambulance. Patient does have Medicaid as secondary, attempted to reach transportation to see if he has their benefits, was placed on hold for a while, will attempt again. Hospitalist may be discussing palliative versus hospice with [facility] today. P: DCP to continue to follow. Plan is home, potentially hospice, he will be working with P.T. Will see if he has transportation benefits. Kimberly Merino, RN/Food Scientist Discharge Planning/Care Management Advanced directive, confirm from FAMILY Start: 06/12/22 00:48 Freq: Q24H Status: Active Protocol: Document 06/12/22 00:48 DL (Rec: 06/12/22 01:14 DL [id number]) Advance Directive, confirm on record Time 01:15 Person contacted self Copy received No Time 01:15 Person contacted self Copy received No Advanced directive available on record No CM Discharge Assessment Start: 06/12/22 12:32 Freq: Status: Active Protocol: Document 06/12/22 12:32 (Rec: 06/12/22 12:37 [id number]) Discharge Planning Assessment Assigned Float Remover Kimberly Merino RN/Food Scientist Advance Directives? No Advance Directives on File No History Provided By Patient,Medical Record Prior Living Arrangements Apartment/Condo Household Members significant other Type of transporation used prior to Relies on Others admit Independent with ADL's Yes Is patient alert and oriented? Yes Needs Assistance With Home Chores / Shopping Caregiver for Another No DME Already Rented / Owned Cane Comment Possibly [facility]. Barriers to Discharge Yes Comment Patient not following up with oncologist, language barrier, metastatic cancer. Discharge Plan Home Transportation Arrangement Will see if patient has transportation benefits. Referrals Initiated Other Additional Comment Hospitalist may be discussing hospice versus palliative. Whiteboard Updated in Patient Room with Yes name and ext. # of Float Remover Review Status In Process Next Review Type Continued Stay Review
[2022-06-12] MEDS: HYDROMORPHONE 2 MG TABLET 4 MG PO (12:48)
[2022-06-12] MEDS: METHADONE 5 MG TABLET PO ×2 (16:11→21:00)
[2022-06-12] MEDS: MAG HYDROX/ALUMINUM/SIMETH SUS 20 ML, LIDOCAINE VISCOUS 2% 15 ML PO (16:24)
--- NOTE | 2022-06-12 18:37 | PC.NURSE ---
Pt has not had any visitors today; when awake, he is quite a bit of pain; Dr. David spoke with pt about diagnosis, MRI results, hospice, and oncology; he started the pt on scheduled methadone for pain management; Pt was given 1st dose of methadone and has napped this afternoon; he is easily arousable, but does complain of pain when awake; pt will have hospice and palliative care visits post discharge; he has had 2 bowel movements and has voided several times; his urine is very dark yellow
[2022-06-13] VITALS (8 sets, daily range): BP systolic 97–111; BP diastolic 52–66; PULSE 91–108; RESP 10–22; TEMP 36.2–37; O2SAT 90–98
[2022-06-13] MEDS: HYDROMORPHONE 2 MG TABLET 4 MG PO (00:58)
[2022-06-13] MEDS: CALCIUM CARBONATE 500 MG TAB 1000 MG PO (01:45)
[2022-06-13] MEDS: HYDROMORPHONE 1 MG INJ IV ×3 (04:08→14:17)
[2022-06-13 04:32] LABS: Add Manual Diff / Slide Review NO; Basophils Absolute Auto 100 /uL (0-100); Basophils Percent Auto 1.3 % (0-2); Eosinophils Absolute Auto 0 /uL (0-450); Eosinophils Percent Auto 0.6 % (2-4); Hematocrit 42.4 % (41-53); Hemoglobin 13.7 g/dL (13.5-17.5); Lymphocytes Absolute Auto 1000 /uL (1100-4500); Lymphocytes Percent Auto 16.5 % (25-40); Mean Corpuscular HGB Conc 32.4 % (30-36); Mean Corpuscular Hemoglobin 28.3 PG (26-34); Mean Corpuscular Volume 87.6 fL (80-100); Monocytes Absolute Auto 700 /uL (0-900); Neutrophils Absolute Auto 4300 /uL (1500-7000); Neutrophils Percent Auto 70.6 % (50-75); Platelet Count 68 X10^3/uL (150-400); Red Blood Cell Count 4.85 X10^6/uL (4.5-5.9); Red Cell Distribution Width 16.7 % (11.6-14.8); White Blood Cell Count 6.1 X10^3/uL (4.5-11.0)
[2022-06-13 04:38] LABS: Alanine Aminotransferase 86 IU/L (<50); Albumin 2.7 g/dL (3.5-5.0); Albumin Globulin Ratio 0.8 (1.0-2.8); Alkaline Phosphatase 300 U/L (38-126); Aspartate Aminotransferase 226 IU/L (17-59); BUN Creatinine Ratio 21.1 (6-22); Bilirubin Total 11.1 mg/dL (0.2-1.3); Blood Urea Nitrogen 24 mg/dL (9-20); Calcium 8.9 mg/dL (8.4-10.2); Carbon Dioxide 20 mmol/L (22-32); Chloride 114 mmol/L (98-107); Estimated Glomerular Filt Rate > 60 mL/min (>60); Globulin 3.2 g/dL (1.7-4.1); Glucose 102 mg/dL (80-110); HEMOLYSIS < 15 (0-50); Magnesium 1.9 mg/dL (1.6-2.3); Potassium 3.8 mmol/L (3.4-5.1); Sodium 143 mmol/L (137-145); Total Protein 5.9 g/dL (6.3-8.2)
[2022-06-13] MEDS: METHADONE 5 MG TABLET PO ×3 (05:35→22:55)
[2022-06-13] MEDS: PANTOPRAZOLE DR 20 MG TABLET PO (05:35)
[2022-06-13] MEDS: HYDROMORPHONE 2 MG TABLET PO ×2 (08:54→12:50)
--- NOTE | 2022-06-13 12:47 | CM.DPC ---
Addendum entered by Kimberly Merino R.N. 06/13/22 15:02: Found out that patient does not have an appointment at [facility]. Called over at [facility] oncology, at the [facility]. Verified that patient does have an appointment on Saturday,June 15 at 0900. Updated hospitalist that this is where his appointment is. Will continue to attempt to reach patient's significant other, Andie, for transportation. Addendum entered by Kimberly Merino R.N. 06/13/22 14:31: Entered patient's room with ipad cardiology nurse practitioner in [place]uran. Confirmed that patient wants treatment, wants to go to his oncology appointment on 06/15. Also, confirmed that his significant other, Andie, does drive. He also indicated that she would be the one picking him up and taking him to his appointment. Hospitalist had discussion about patient having stage 4 metastatic cancer. Patient does wish to pursue treatment, so not hospice as of yet. Patient continues to have severe abdominal pain. He needed to stand to get comfortable. Nurse is giving patient some additional dilaudid. Asked patient where he gets his meds filled,and indicated that they are filled at [facility] in [place]. Hospitalist does not wish to discharge patient unless his pain is controlled. He may stay until his oncology appointment on the . Called over at the [facility] next door, they do not have patient scheduled, or in their system. Called over at [facility] oncology. Their number is: [phone]. Did not leave a detailed message with name, but asked information receptionist to call this DC associate financial planner back to see if they have patient scheduled. Will await call back. Addendum entered by Kimberly Merino R.N. 06/13/22 13:19: Spoke to Dr. David about possibly getting cardiology nurse practitioner for patient. It is unclear if he is understanding conversation. There is an ipad available to assist with interpreting at the main nurses station. Let hospitalist know that this can be used for when he enters room today to ensure that he has understanding of his disease process, and what is going on, as well as hospice services, and what they do. Can also discuss home situation and transportation services as well. Original Note: DCP Cont: Attempted to speak to patient. He engaged in minimal conversation. Asked him if he has spoken to his significant other, nodded his head. Asked him if she knows that he is here, he did not respond. Asked him if hospice had been mentioned, nodded briefly. Asked nurse if he has received increased pain medications, for he was minimally engaged in conversation, stated, he had not received a large amount of meds. Attempted to reach out to his significant other, Andie, again, and voice mail continues to state the [employer] customer is unavailable. The only way to get him home is BLS, and may need to have a wellness check done, if unable to reach his significant other. P: DCP to work on discharge plan. Plan is home, but will need to ensure that someone is in the home. He most likely will need BLS, which he will need pay privately. Will need to contact hospice, either [facility] at discharge. Kimberly Merino RN/Printed Products Assembler
--- NOTE | 2022-06-13 18:27 | PM.PN.1 ---
Subjective Subjective Interval history: Patient still in lots of pain. A 35 minute discussion was had with patient and dragline operator helper. He would like to pursue treatment for his cancer and will have his gf drive him to [facility] oncology appt at 9am on 06/15. He defers hospice at this time. He is requesting more pain meds. Exam Vital Signs (past 8 hours): - 06/13/22 12:00 06/13/22 16:00 Temperature 98.2 F 98.3 F Pulse Rate 96 H 96 H Respiratory Rate 15 13 Blood Pressure 107/58 L 101/60 Pulse Oximetry 93 93 Oxygen Flow Rate 0 0 Oxygen Delivery Method Room Air Oxygen Flow Rate 0 Narrative Exam Narrative: General: Patient is a well-developed, well-nourished ill-appearing icterus male with generalized edema, appears in pain HEENT: Normocephalic, atraumatic, sclera icterus, extraocular muscles intact, oral pharynx is clear and mucous membranes are moist. Neck is supple and symmetric, trachea is midline, no adenopathy, no thyroid enlargement, nontender, no masses palpated. Negative for JVD Chest: Breathing without nasal flaring, retractions, or tachypneic labored (RR14) Lungs: Auscultation of all lung alamo are clear without adventitious sounds, wheezes, rhonchi, or rales. Cardio: S1 & S2 with regular rate and rhythm without murmur, rubs, or gallops, no carotid bruit, no cardiac pulsations present. Abdomen: Slightly distended, tender to palpation in lower quadrants, firm, Bowel sounds are hypoactive present in all 4 quadrants, no CVA tenderness. Musculoskeletal: Muscle strength and tone are equal, no deformity, crepitus, effusions, cyanosis, clubbing present. Full range of motion intact radial and pedal pulses are normal. Skin: Icterus, generalized edema, Warm dry and intact without rashes, ulcerations or petechiae. Neuro: Alert and orientated x3, moves all extremities, sensation to touch intact, no gross deficits noted of cranial nerves. Psych: Patient has a well-kept appearance, appropriate affect, possible delayed or baseline cognitive impairment, mental status attitude thought context, comprehension and judgment are inappropriate for age and situation. Objective Labs 06/13/22 04:15 06/13/22 04:15 Labs: Laboratory Results - last 24 hr 06/13/22 06/13/22 04:15 04:15 WBC 6.1 RBC 4.85 Hgb 13.7 Hct 42.4 MCV 87.6 MCH 28.3 MCHC 32.4 RDW 16.7 H Plt Count 68 L Neut % (Auto) 70.6 Lymph % (Auto) 16.5 L [place] % (Auto) 11.0 Eos % (Auto) 0.6 L Baso % (Auto) 1.3 Neut # (Auto) 4300 Lymph # (Auto) 1000 L [place] # (Auto) 700 Eos # (Auto) 0 Baso # (Auto) 100 Sodium 143 Potassium 3.8 Chloride 114 H Carbon Dioxide 20 L BUN 24 H Creatinine 1.14 Estimated GFR > 60 BUN/Creatinine Ratio 21.1 Glucose 102 Calcium 8.9 Magnesium 1.9 Total Bilirubin 11.1 H AST 226 H ALT 86 H Alkaline Phosphatase 300 H Total Protein 5.9 L Albumin 2.7 L Globulin 3.2 Albumin/Globulin Ratio 0.8 L PFSH Medical History Benign essential HTN Coronary artery disease Diabetes type 2, uncontrolled Elevated blood alcohol level Heartburn Hyperlipidemia Surgical History H/O heart artery stent Family History Father Lung cancer Mother Medical history unknown Social History household members: significant other Smoking Status: Current every day smoker alcohol intake: former Assessment & Plan Assessment & Plan narrative: 1. Metastatic disease to lung and liver, of unknown source, with abdominal/back/left shoulder pain, present on admission -hospice referral placed, but patient elects to defer this and pursue treatment with oncology -start methadone 5mg TID for cancer pain, increase dilaudid to 2mg IV q2h as pain not yet controlled -f/u with oncology as scheduled on 06/15 -CXR: 1. Low lung volumes with pulmonary vascular prominence consistent with pulmonary edema or vascular crowding. 2. Patchy opacities within the left lung base may represent consolidation or mass lesions.? ABD U/S:1. Numerous hepatic lesions concerning for extensive liver metastases. 2. Small amount of ascites fluid in right upper quadrant abdomen. 3. No gallstones.? No sonographic evidence of acute cholecystitis.? No gross biliary ductal dilatation. Abd MRI: Innumerable hepatic lesions are present, highly suspicious for diffuse hepatic metastases. 2. Nodular pleural thickening in the left hemithorax suspicious for pleural metastases. 3. Bilateral adrenal thickening, indeterminate. 4. No biliary dilation. No findings to suggest common bile duct obstruction. 5. Trace amount of ascites and liver and spleen. 2. sepsis ruled out, present on admission -sepsis bolus in ED given, Rocephin and Zosyn -sofa score:7-platelets 102, MAP<70, bili 13.6, initial GCS 14, procalcitonin 6.29, lactate 1.0, positive urinalysis culture pending. -patient admitted to the ICU to be managed by tele platen press operator apprentice Dr. Diaz, consult ordered -WBC negative, urine and blood cultures negative. Will stop abx. 3. UTI ruled out, acute, present on admission -history of urinary retention requiring Weiner placement -UA positive for protein, nitrates, urine culture negative -patient placed on Zosyn and Rocephin -NS at 100 cc/HR -bladder scans as needed if greater than 500 cc straight cath, 2nd time greater than 500 cc Weiner placement 4. Transaminitis, acute on chronic, likely secondary to metastatic disease, present on admission -see imaging results above -abdominal distension, with ascites, generalized edema, generalized icterus to include scleral icterus on admit -initial laboratory findings bili 13.6, AST 283, ALT 94, alk-phos 369 ETOH negative, ammonia 55. -trend daily -hepatitis panel pending 5. Type 2 Diabetes, [id number], with hyperlipidemia chronic, present on admission -holding metformin, continue Lipitor -initial glucose 90 -given insulin sliding scale, admitted under diabetic protocol -a1c 7.5% 6. Essential hypertension with history of CAD and stent placement, chronic, present on admission -due to current hypotension holding the patient's losartan and metoprolol 7. Overweight, mild, acute on chronic, present on admission -likely secondary to metastatic disease/ascites/edema-BMI 28 -dietary consult ordered regarding nutritional education and information for dietary -the patient is at much higher risk for medical and surgical complications due to obesity as it relates to chronic illnesses:, and acute illness. The patient's obesity increases the difficulty and complexity of medical and/or surgical interventions, management and increases the chances of poor outcome such as morbidity and mortality as well as impaired wound healing. 8.. Active smoker, acute, present on admission -encourage cessation Code status: After bedside discussion with patient regarding his metastatic advanced disease he requested to change full code to DNR status. Surrogate decision maker: Andie Vazquez, family COVID PCR:Negative DVT/VTE prophylaxis: Lovenox and SCDs Disposition: Home in 1-2 days pending improvement in pain. Time Spent With Patient Critical Care time: I spent a total of [] minutes of critical care time on this patient's care today; this time is exclusive of procedural time.
[2022-06-13] MEDS: HYDROMORPHONE 2 MG INJ IV (21:01)
[2022-06-13] MEDS: SENNOSIDES 8.6 MG TABLET 17.2 MG PO (21:14)
[2022-06-14] VITALS: BP 97/67; PULSE 106; RESP 11; TEMP 36.4; O2SAT 94
[2022-06-14 04:00] VITALS: BP 92/56; PULSE 107; RESP 12; TEMP 36.3; O2SAT 93
[2022-06-14 04:47] LABS: Add Manual Diff / Slide Review NO; Basophils Absolute Auto 100 /uL (0-100); Basophils Percent Auto 1.3 % (0-2); Eosinophils Absolute Auto 0 /uL (0-450); Eosinophils Percent Auto 0.3 % (2-4); Hematocrit 42.1 % (41-53); Hemoglobin 13.8 g/dL (13.5-17.5); Lymphocytes Absolute Auto 900 /uL (1100-4500); Lymphocytes Percent Auto 14.7 % (25-40); Mean Corpuscular HGB Conc 32.8 % (30-36); Mean Corpuscular Hemoglobin 28.7 PG (26-34); Mean Corpuscular Volume 87.8 fL (80-100); Monocytes Absolute Auto 600 /uL (0-900); Monocytes Percent Auto 9.6 % (3-14); Neutrophils Absolute Auto 4600 /uL (1500-7000); Neutrophils Percent Auto 74.1 % (50-75); Platelet Count 74 X10^3/uL (150-400); Red Cell Distribution Width 16.6 % (11.6-14.8); White Blood Cell Count 6.2 X10^3/uL (4.5-11.0)
[2022-06-14 04:50] LABS: Alanine Aminotransferase 83 IU/L (<50); Albumin 2.7 g/dL (3.5-5.0); Albumin Globulin Ratio 0.9 (1.0-2.8); Alkaline Phosphatase 294 U/L (38-126); Aspartate Aminotransferase 206 IU/L (17-59); BUN Creatinine Ratio 20.1 (6-22); Bilirubin Total 10.8 mg/dL (0.2-1.3); Blood Urea Nitrogen 34 mg/dL (9-20); Calcium 9.7 mg/dL (8.4-10.2); Carbon Dioxide 18 mmol/L (22-32); Chloride 115 mmol/L (98-107); Estimated Glomerular Filt Rate 44 mL/min (>60); Globulin 3.1 g/dL (1.7-4.1); Glucose 101 mg/dL (80-110); HEMOLYSIS < 15 (0-50); Potassium 4.3 mmol/L (3.4-5.1); Sodium 143 mmol/L (137-145); Total Protein 5.8 g/dL (6.3-8.2)
[2022-06-14] MEDS: METHADONE 5 MG TABLET PO ×2 (05:30→13:56)
[2022-06-14] MEDS: PANTOPRAZOLE DR 20 MG TABLET PO (05:30)
[2022-06-14] MEDS: HYDROMORPHONE 2 MG INJ IV ×2 (07:57→17:26)
[2022-06-14 07:58] VITALS: BP 102/66; PULSE 114; RESP 14; TEMP 36.5; O2SAT 94
--- NOTE | 2022-06-14 08:02 | PM.PN.1 ---
Subjective Subjective Interval history: Patient has abdomen pain, very listless. Still declines hospice. Exam Vital Signs (past 8 hours): - 06/14/22 04:00 Temperature 97.4 F L Pulse Rate 107 H Respiratory Rate 12 Blood Pressure 92/56 L Pulse Oximetry 93 Oxygen Flow Rate 1.5 Fraction of Inspired Oxygen 26 SaO2/FiO2 Ratio 353 Oxygen Delivery Method Nasal Cannula Oxygen Flow Rate 1.5 Narrative Exam Narrative: General: listless, no distress. HEENT: Normocephalic, atraumatic, sclera icterus NECK: no thyroid enlargement, nontender, no masses palpated. Negative for JVD Chest: Breathing with normal effort. Lungs: Auscultation of all lung alamo are clear without adventitious sounds, wheezes, rhonchi, or rales. Cardio: S1 & S2 with regular rate and rhythm without murmur, rubs Abdomen: Slightly distended, tender to palpation in lower quadrants, firm, Bowel sounds are hypoactive present in all 4 quadrants, no CVA tenderness. Musculoskeletal: Full range of motion intact radial and pedal pulses are normal. Skin: Jaundice, generalized edema, Warm dry and intact without rashes, ulcerations or petechiae. Neuro: Alert and orientated x3, moves all extremities, sensation to touch intact, no gross deficits noted of cranial nerves. Psych: Flat affect. Objective Labs 06/14/22 04:10 06/14/22 04:10 Labs: Laboratory Results - last 24 hr 06/14/22 06/14/22 04:10 04:10 WBC 6.2 RBC 4.80 Hgb 13.8 Hct 42.1 MCV 87.8 MCH 28.7 MCHC 32.8 RDW 16.6 H Plt Count 74 L Neut % (Auto) 74.1 Lymph % (Auto) 14.7 L [place] % (Auto) 9.6 Eos % (Auto) 0.3 L Baso % (Auto) 1.3 Neut # (Auto) 4600 Lymph # (Auto) 900 L [place] # (Auto) 600 Eos # (Auto) 0 Baso # (Auto) 100 Sodium 143 Potassium 4.3 Chloride 115 H Carbon Dioxide 18 L BUN 34 H Creatinine 1.69 H Estimated GFR 44 L BUN/Creatinine Ratio 20.1 Glucose 101 Calcium 9.7 Magnesium 2.0 Total Bilirubin 10.8 H AST 206 H ALT 83 H Alkaline Phosphatase 294 H Total Protein 5.8 L Albumin 2.7 L Globulin 3.1 Albumin/Globulin Ratio 0.9 L PFSH Medical History Benign essential HTN Coronary artery disease Diabetes type 2, uncontrolled Elevated blood alcohol level Heartburn Hyperlipidemia Surgical History H/O heart artery stent Family History Father Lung cancer Mother Medical history unknown Social History household members: significant other Smoking Status: Current every day smoker alcohol intake: former Assessment & Plan Assessment & Plan narrative: Plan: -cancel discharge. -increase methadone to 10 TID -PT eval (discharge planning) -Hospice and oncology referrals. -Familiy conference Saturday AM (with girlfriend by phone). Problems: 1. Metastatic disease to lung and liver, of unknown source, with abdominal/back/left shoulder pain, present on admission -hospice referral placed, but patient elects to defer this and pursue treatment with oncology -start methadone 5mg TID for cancer pain, increase dilaudid to 2mg IV q2h as pain not yet controlled -f/u with oncology as scheduled on 06/15 -CXR: 1. Low lung volumes with pulmonary vascular prominence consistent with pulmonary edema or vascular crowding. 2. Patchy opacities within the left lung base may represent consolidation or mass lesions.? ABD U/S:1. Numerous hepatic lesions concerning for extensive liver metastases. 2. Small amount of ascites fluid in right upper quadrant abdomen. 3. No gallstones.? No sonographic evidence of acute cholecystitis.? No gross biliary ductal dilatation. Abd MRI: Innumerable hepatic lesions are present, highly suspicious for diffuse hepatic metastases. 2. Nodular pleural thickening in the left hemithorax suspicious for pleural metastases. 3. Bilateral adrenal thickening, indeterminate. 4. No biliary dilation. No findings to suggest common bile duct obstruction. 5. Trace amount of ascites and liver and spleen. 2. sepsis ruled out, present on admission -sepsis bolus in ED given, Rocephin and Zosyn -sofa score:7-platelets 102, MAP<70, bili 13.6, initial GCS 14, procalcitonin 6.29, lactate 1.0, positive urinalysis culture pending. -patient admitted to the ICU to be managed by tele finishing room operator Dr. Diaz, consult ordered -WBC negative, urine and blood cultures negative. Will stop abx. 3. UTI ruled out, acute, present on admission -history of urinary retention requiring Weiner placement -UA positive for protein, nitrates, urine culture negative -patient placed on Zosyn and Rocephin -NS at 100 cc/HR -bladder scans as needed if greater than 500 cc straight cath, 2nd time greater than 500 cc Weiner placement 4. Transaminitis, acute on chronic, likely secondary to metastatic disease, present on admission -see imaging results above -abdominal distension, with ascites, generalized edema, generalized icterus to include scleral icterus on admit -initial laboratory findings bili 13.6, AST 283, ALT 94, alk-phos 369 ETOH negative, ammonia 55. -trend daily -hepatitis panel pending 5. Type 2 Diabetes, [id number], with hyperlipidemia chronic, present on admission -holding metformin, continue Lipitor -initial glucose 90 -given insulin sliding scale, admitted under diabetic protocol -a1c 7.5% 6. Essential hypertension with history of CAD and stent placement, chronic, present on admission -due to current hypotension holding the patient's losartan and metoprolol 7. Overweight, mild, acute on chronic, present on admission -likely secondary to metastatic disease/ascites/edema-BMI 28 -dietary consult ordered regarding nutritional education and information for dietary -the patient is at much higher risk for medical and surgical complications due to obesity as it relates to chronic illnesses:, and acute illness. The patient's obesity increases the difficulty and complexity of medical and/or surgical interventions, management and increases the chances of poor outcome such as morbidity and mortality as well as impaired wound healing. 8.. Active smoker, acute, present on admission -encourage cessation Code status: After bedside discussion with patient regarding his metastatic advanced disease he requested to change full code to DNR status. Surrogate decision maker: Andie Vazquez, family COVID PCR:Negative DVT/VTE prophylaxis: Lovenox and SCDs Disposition: Home in 1-2 days pending improvement in pain.
--- NOTE | 2022-06-14 11:49 | CM.DPC ---
Addendum entered by Tracy Bright R.N. 06/14/22 16:01: RAMIREZ spoke with Hospitalist who went to talk to the patient and he was very weak and not able to sign his POLST form with the provider. MD felt DC home today was not appropriate and wanted to keep him here to work on his pain control and get PT and OT evaluations to see if he would be safe to go home. Patients no open to hospice at this time and wants to meet with oncology before he chooses to go on hospice. Dr. Lopez is working on getting Oncology here to come see the patient tomorrow and then work on a safe DC plan at that time. RAMIREZ called patients spouse who was in an agreement with DC plan for tomorrow. CM team will work with an freelance interpreter/translator to work out the details of DC plan for patient. Tracy Bright signal manager Addendum entered by Tracy Bright R.N. 06/14/22 12:24: CM spoke with patient VIA freelance interpreter/translator phone about Dc home planning. patient was agreeable to DC home today to go to his oncology appointment tomorrow at 9Am. CM asked Patients nurse about safe transportation option and he stated he believes the patient would be better supported by BLS transport home instead of a Taxi, medicaid transport or cabulance. Ramirez spoke with Hospitalist Dr. Lopez who agreed that for the patients support a BLS transport would be better for the longer transfer to [facility]. CM spoke with patient VIA freelance interpreter/translator phone to ask if he wanted BLS transport home. Patient agreed with BLS transport. CM explained there could be a cost associated with BLS transport and he could receive a bill. patient stated understanding and agreed with BLS transport home. BLS was set up by RAMIREZ Jesus with ambulance for 430pm today. RAMIREZ called patients Significant other Andie who is not a iroquois Indonesian speaker and hard of hearing - she stated they have stairs to there apartment and is in agreement with BLS transport home and she will be there to receive him. RAMIREZ spoke with John Xie about getting POLST signed for BLS transport. CM let the mold closer know about Transport time and Dc plan. Tracy Bright RNmicrocomputer technician Original Note: DCP continued: Ramirez called patients Significant other Andie's phone [phone] and got a notice from [employer] stating the wireless caller is not taking calls at this time... no ability to leave VM. Cm talked with patients nurse who has new contact phone number for the Significant other [phone] - ramirez spoke with patients Significant other Andie who stated she can not drive and that we need to call a taxi or do ambulance transport home. CM will work with the patient to see what is his preferred mode of transportation. Tracy Bright RNmicrocomputer technician
[2022-06-14 12:05] VITALS: BP 103/61; PULSE 109; RESP 15; TEMP 36.7
--- NOTE | 2022-06-14 12:37 | CM.DPNOTE ---
Addendum entered by Ann Marie Reyes 06/14/22 15:00: Dr. Lb Lopez asked to cancel transport due to patient having pain issues. I called and spoke to Teagan at Ambulance to cancel. Ann Marie Reyes CM Assist. Original Note: Spoke to Teagan at Ambulance for BLS transport to patient's home per Tracy. I told Teagan there were stairs, and gave her the friend, Andie's phone number. Teagan gave us an ETA of 1630. We will need a POLST if pt. is a DNR. Ann Marie Reyes CM Assist.
--- NOTE | 2022-06-14 14:32 | P.DS_ITS ---
History of Present Illness History of Present Illness Date Patient Seen: 06/11/22 Time Patient Seen: 22:46 Chief complaint: weakness Narrative: Mr. Mota is a 66M with PMH CAD s/p NE stent, DM2, active tobacco smoker, HLD, HTN, history of alcohol abuse, metastatic disease diagnosed 03/2022 lungs liver and abdomen, who presented to the ED following generalized worsening weakness increasing abdominal pain nausea left shoulder pain, jaundice worsening abdominal distention. Patient was seen in another facility approximately 10 days ago.? I personally reviewed these notes from [facility] ED visit 06/03/2022 I personally reviewed all notes, laboratory and diagnostics available. He has not followed up with Oncology.? He informed the ED that he has a scheduled follow-up in approximately 1-2 weeks with an oncologist but is yet to do so.? At the outside facility he was found to have an elevated bilirubin an elevation in his AST and ALT and alkaline phosphatase.? Upon arrival today the patient is jaundice.? Patient is difficult to converse with as he is almost exclusively focused on his generalized pain and does not appear to truly comprehend the extensiveness of his metastatic disease in relation to his pain and level of function. I do not believe this is encephalopathic but more impaired cognitive comprehension at baseline. On admit patient denies chest pain, shortness in breath, headache, changes in vision, difficulty swallowing, speech impairment, numbness, tingling, difficulty with ambulation, recent falls, head injury, LOC, fever, cough, recent exposure to illness, urinary incontinence/retention, dysuria, frequency, urgency, hematuria, bowel changes, constipation, incontinence, melena, rashes, recent changes to medication, injury, or trauma. Patient's blood pressures are soft both in the ED and on admit afebrile temp 96.9?, BP is 83/50, 98/57, 89/53, 101/59, HR 86, tachypneic from 14-32, O2 saturation 94% on room air. Patient has generalized icterus with abdominal distention. But is in no acute distress. Platelets 102, BUN 26, bicarb 21, bili 13.6, AST 283, ALT 94, alk-phos 369, PT 16.3, INR 1.4, ETOH is negative, lactate 1.9, procalcitonin 6.29, ammonia 55, respiratory panel is negative, hepatitis and blood culture panels are pending, urinalysis is positive for protein nitrates and bacteria culture pending lipase 1149. CXR: 1. Low lung volumes with pulmonary vascular prominence consistent with pulmonary edema or vascular crowding. 2. Patchy opacities within the left lung base may represent consolidation or mass lesions.? ABD U/S:1. Numerous hepatic lesions concerning for extensive liver metastases. 2. Small amount of ascites fluid in right upper quadrant abdomen. 3. No gallstones.? No sonographic evidence of acute cholecystitis.? No gross biliary ductal dilatation. A/P MRI: Innumerable hepatic lesions are present, highly suspicious for diffuse hepatic metastases. 2. Nodular pleural thickening in the left hemithorax suspicious for pleural metastases. 3. Bilateral adrenal thickening, indeterminate. 4. No biliary dilation. No findings to suggest common bile duct obstruction. 5. Trace amount of ascites and liver and spleen. ED consulted with GI at [facility] who noted no biliary obstruction hence no need for transfer to GI for any stent intervention. I consulted with Dr. David who approved the patient was appropriate for admit to our facility. Patient admitted to the ICU with sepsis without septic shock, UTI, transaminitis likely secondary to metastatic disease. Discharge Providers Provider Date of admission: 06/11/22 23:14 Discharge Date: 06/14/22 Primary care physician: Melissa Rodriguez DO Consults: 06/11/22 22:18 Consult to Dietitian, Adult Urgent Comment: Reason For Exam: Bmi 26, metatstic dz, DM2 06/11/22 22:35 Consult to Discharge Planning Routine Comment: needs onco f/u Consult to Occupational Therapy Evaluate & Treat Comment: weakness Physician Instructions: Evaluate and treat Consult to Physical Therapy Evaluate & Treat Comment: weakness Physician Instructions: Evaluate and Treat 06/12/22 02:34 Consult to Hospice Referral Routine Comment: Consult to Palliative Care Urgent Comment: Consulting Provider: Rosemarie Parada Discharge provider: Gage Lopez MD Summary Hospital Course Discharge Diagnosis: Metastatic cancer of unknown primary. Malignant ascites. Cancer related pain. DM 2 Liver lesions and jaundice Tobacco dependence. Hospital Course: The patient was admitted with abdominal pain and found to have metastatic disease to the lung and liver of unknown primary. A hospice referral was placed, but the patient declines hospice at this point. The case was discussed with palliative Medicine and methadone was started 5 mg t.i.d. for cancer pain. The patient was initially covered with empiric antibiotics but all cultures remain negative. Ultimately plans were made to transfer the patient home by ambulance where his girlfriend would meet him. Medications for pain were sent to his pharmacy. Transportation to assist him getting to his oncology appointment in the morning is also arranged. A hospice informational pending. The patient still have a very short period of time left and will likely require fairly rapid alignment with hospice. Status at Discharge Cognitive/behavioral status at discharge: oriented Functional status at discharge: uses cane/walker Overall status at discharge: patient is not back to baseline Time Spent with Patient Time spent: Greater than 30 minutes Exam Vital Signs (past 8 hours): - 06/14/22 07:58 06/14/22 12:05 Temperature 97.7 F 98.1 F Pulse Rate 114 H 109 H Respiratory Rate 14 15 Blood Pressure 102/66 103/61 Pulse Oximetry 94 Oxygen Flow Rate 2 Fraction of Inspired Oxygen 26 SaO2/FiO2 Ratio 353 Oxygen Delivery Method Nasal Cannula Oxygen Flow Rate 2 Narrative Exam Narrative: General: Patient is a well-developed, ill-appearing jaundiced male with generalized edema HEENT: Normocephalic, atraumatic, sclera icterus Neck is supple and symmetric, trachea is midline, no adenopathy Chest: Breathing without nasal flaring, retractions, or tachypneic labored (RR14) Lungs: Auscultation of all lung alamo are clear without adventitious sounds, wheezes, rhonchi, or rales. Cardio: S1 & S2 with regular rate and rhythm without murmur, rubs, or gallops, no carotid bruit, no cardiac pulsations present. Abdomen: Slightly distended, tender to palpation in lower quadrants, firm, Bowel sounds are hypoactive present in all 4 quadrants, no CVA tenderness. Musculoskeletal: Muscle strength and tone are equal Skin: Jaundiced, generalized edema, Warm dry and intact without rashes, ulcerations or petechiae. Neuro: Alert and orientated x3 Psych: Flat affect, listless. Objective Imaging MRI - abdomen: My impression: Not read. Radiologist's impression: IMPRESSION:? ? 1. Innumerable hepatic lesions are present, highly suspicious for diffuse hepatic metastases.? 2. Nodular pleural thickening in the left hemithorax suspicious for pleural metastases. 3. Bilateral adrenal thickening, indeterminate. 4. No biliary dilation.? No findings to suggest common bile duct obstruction. 5. Trace amount of ascites and liver and spleen.? Labs 06/14/22 04:10 06/14/22 04:10 Labs: Laboratory Results - last 24 hr 06/14/22 06/14/22 04:10 04:10 WBC 6.2 RBC 4.80 Hgb 13.8 Hct 42.1 MCV 87.8 MCH 28.7 MCHC 32.8 RDW 16.6 H Plt Count 74 L Neut % (Auto) 74.1 Lymph % (Auto) 14.7 L Clare % (Auto) 9.6 Eos % (Auto) 0.3 L Baso % (Auto) 1.3 Neut # (Auto) 4600 Lymph # (Auto) 900 L Clare # (Auto) 600 Eos # (Auto) 0 Baso # (Auto) 100 Sodium 143 Potassium 4.3 Chloride 115 H Carbon Dioxide 18 L BUN 34 H Creatinine 1.69 H Estimated GFR 44 L BUN/Creatinine Ratio 20.1 Glucose 101 Calcium 9.7 Magnesium 2.0 Total Bilirubin 10.8 H AST 206 H ALT 83 H Alkaline Phosphatase 294 H Total Protein 5.8 L Albumin 2.7 L Globulin 3.1 Albumin/Globulin Ratio 0.9 L PFSH Medical History Benign essential HTN Coronary artery disease Diabetes type 2, uncontrolled Elevated blood alcohol level Heartburn Hyperlipidemia Surgical History H/O heart artery stent Family History Father Lung cancer Mother Medical history unknown Social History household members: significant other Smoking Status: Current every day smoker alcohol intake: former Discharge Assessment & Plan Assessment and Plan Assessment: 1. Metastatic disease to lung and liver, of unknown source, with abdominal/back/left shoulder pain, present on admission -hospice referral placed, but patient elects to defer this and pursue treatment with oncology -start methadone 5mg TID for cancer pain, increase dilaudid to 2mg IV q2h as pain not yet controlled -f/u with oncology as scheduled on 06/15 -CXR:?1. Low lung volumes with pulmonary vascular prominence consistent with pulmonary edema or vascular crowding. 2. Patchy opacities within the left lung base may represent consolidation or mass lesions.? ABD U/S:1. Numerous hepatic lesions concerning for extensive liver metastases. 2. Small amount of ascites fluid in right upper quadrant abdomen. 3. No gallstones.? No sonographic evidence of acute cholecystitis.? No gross biliary ductal dilatation. Abd MRI:? Innumerable hepatic lesions are present, highly suspicious for diffuse hepatic metastases. 2. Nodular pleural thickening in the left hemithorax suspicious for pleural metastases. 3. Bilateral adrenal thickening, indeterminate. 4. No biliary dilation.? No findings to suggest common bile duct obstruction. 5. Trace amount of ascites and liver and spleen.? 2. Sepsis ruled out, present on admission -sepsis bolus in ED given, Rocephin and Zosyn -sofa score:7-platelets 102, MAP<70, bili 13.6, initial GCS 14, procalcitonin 6.29, lactate 1.0, positive urinalysis culture pending. -patient admitted to the ICU to be managed by tele electrician supervisor airplane Dr. Diaz, consult ordered -WBC negative, urine and blood cultures negative. Will stop abx. 3. UTI ruled out, acute, present on admission -history of urinary retention requiring Weiner placement -UA positive for protein, nitrates, urine culture negative -patient placed on Zosyn and Rocephin -discharged off antibiotics. 4.?Transaminitis, acute on chronic, likely secondary to metastatic disease, present on admission -see imaging results above -abdominal distension, with ascites, generalized edema, generalized icterus to include scleral icterus on admit -initial laboratory findings bili 13.6, AST 283, ALT 94, alk-phos 369 ETOH negative, ammonia 55. -trend daily -hepatitis panel negative. 5. Type 2 Diabetes, [id number], with hyperlipidemia chronic, present on admission -holding metformin, continue Lipitor -initial glucose 90 -given insulin sliding scale, admitted under diabetic protocol -a1c 7.5% 6. Essential hypertension with history of CAD and stent placement, chronic, present on admission -due to current hypotension holding the patient's losartan and metoprolol 7.? Overweight, mild, acute on chronic, present on admission -likely secondary to metastatic disease/ascites/edema-BMI 28 -dietary consult ordered regarding nutritional education and information for dietary -the patient is at much higher risk for medical and surgical complications due to obesity as it relates to chronic illnesses:, and acute illness.? The patient's obesity increases the difficulty and complexity of medical and/or surgical interventions, management and increases the chances of poor outcome such as morbidity and mortality as well as impaired wound healing. ? 8.. Active smoker, acute, present on admission -encourage cessation Code status:? After bedside discussion with patient regarding his metastatic advanced disease he requested to change full code to DNR status. Surrogate decision maker: Andie Vazquez, family Discharge Plan Discharge Plan Patient Disposition: Home Provider Discharge Comment: Oncology follow up Saturday AM 09:00. Hospice informational session next week. Discharge orders & Medications Prescriptions: New methadone 5 mg Tablet 10 mg PO Q8HR PRN (Reason: Abdominal Pain) Qty: 21 0RF Continued omeprazole 20 mg capsule,delayed release(DR/EC) 20 mg PO DAILY Qty: 90 3RF atorvastatin [Lipitor] 40 mg tablet 40 mg PO DAILY Qty: 90 3RF losartan 50 mg tablet 50 mg PO DAILY Qty: 90 3RF metformin 500 mg tablet extended release 24 hr 1,000 mg PO DAILY Qty: 180 3RF metoprolol succinate 25 mg tablet extended release 24 hr 25 mg PO DAILY Qty: 90 3RF naproxen sodium [Aleve] 220 mg Capsule 220 mg PO BID aspirin 81 mg Tablet,Delayed Release (Dr/Ec) 81 mg PO DAILY Qty: 9 0RF Medication counseling provided by Pharmacist: No Follow up/Referrals: Melissa Rodriguez DO [Primary Care Provider] - Discharge Health Status Multidrug resistant organism: No MDRO Diet/Activity/Treatments Diet: Diet as Tolerated Activity: As tolerated Visit Report/Discharge Packet Stand Alone Forms: Patient Portal/API Discharge Data Primary Care Provider: Melissa Rodriguez
[2022-06-14 20:00] VITALS: BP 103/62; PULSE 109; RESP 12; TEMP 36.1; O2SAT 91
[2022-06-14] MEDS: SENNOSIDES 8.6 MG TABLET 17.2 MG PO (21:57)
[2022-06-14] MEDS: METHADONE 10 MG TABLET PO (21:57)
[2022-06-15] VITALS: BP 107/63; PULSE 114; RESP 13; TEMP 36.7; O2SAT 93
[2022-06-15] MEDS: HYDROMORPHONE 2 MG INJ IV ×3 (00:32→10:51)
[2022-06-15 00:56] VITALS: PULSE 110; O2SAT 93
[2022-06-15 04:00] VITALS: BP 109/69; PULSE 117; RESP 12; TEMP 36.7; O2SAT 93
[2022-06-15] MEDS: PANTOPRAZOLE DR 20 MG TABLET PO (05:39)
[2022-06-15] MEDS: METHADONE 10 MG TABLET PO (05:39)
--- NOTE | 2022-06-15 07:52 | PM.PN.1 ---
Subjective Subjective Interval history: Exam Vital Signs (past 8 hours): - 06/15/22 00:00 06/15/22 00:56 06/15/22 04:00 Temperature 98.0 F 98.1 F Pulse Rate 114 H 110 H 117 H Respiratory Rate 13 12 Blood Pressure 107/63 109/69 Pulse Oximetry 93 93 93 Oxygen Delivery Method Nasal Cannula Oxygen Flow Rate 2 2 Fraction of Inspired Oxygen 28 Fraction of Inspired Oxygen 28 SaO2/FiO2 Ratio 332 Oxygen Delivery Method Nasal Cannula Oxygen Flow Rate 2 Narrative Exam Narrative: General: Patient is a well-developed, ill-appearing jaundiced male with generalized edema HEENT: Normocephalic, atraumatic, sclera icterus Neck is supple and symmetric, trachea is midline, no adenopathy Chest: Breathing without nasal flaring, retractions, or tachypneic labored (RR14) Lungs: Auscultation of all lung alamo are clear without adventitious sounds, wheezes, rhonchi, or rales. Cardio: S1 & S2 with regular rate and rhythm without murmur, rubs, or gallops, no carotid bruit, no cardiac pulsations present. Abdomen: Slightly distended, tender to palpation in lower quadrants, firm, Bowel sounds are hypoactive present in all 4 quadrants, no CVA tenderness. Musculoskeletal: Muscle strength and tone are equal Skin: Jaundiced, generalized edema, Warm dry and intact without rashes, ulcerations or petechiae. Neuro: Alert and orientated x3 Psych: Flat affect, listless. Objective Labs 06/14/22 04:10 06/14/22 04:10 [facility] Medical History (Updated 06/14/22 @ 20:56 by Poppy Ornelas) Benign essential HTN Chronic back pain Coronary artery disease Diabetes type 2, uncontrolled Elevated blood alcohol level Foot pain Heartburn Hyperlipidemia Lung cancer Surgical History (Updated 06/14/22 @ 20:56 by Poppy Ornelas) Anesthesia H/O heart artery stent History of back surgery (~1992) Family History Father Lung cancer Mother Medical history unknown Social History household members: significant other Smoking Status: Current every day smoker alcohol intake: former Assessment & Plan Assessment & Plan narrative: 1. Metastatic disease to lung and liver, of unknown source, with abdominal/back/left shoulder pain, present on admission and active. -hospice referral placed, but patient elects to defer this and pursue treatment with oncology -start methadone 5mg TID for cancer pain, increase dilaudid to 2mg IV q2h as pain not yet controlled -f/u with oncology as scheduled on 06/15 (Cancelled, not well enough for discharge). ABD U/S:1. Numerous hepatic lesions concerning for extensive liver metastases. 2. Small amount of ascites fluid in right upper quadrant abdomen. 3. No gallstones.? No sonographic evidence of acute cholecystitis.? No gross biliary ductal dilatation. Abd MRI:? Innumerable hepatic lesions are present, highly suspicious for diffuse hepatic metastases. 2. Nodular pleural thickening in the left hemithorax suspicious for pleural metastases. 3. Bilateral adrenal thickening, indeterminate. 4. No biliary dilation.? No findings to suggest common bile duct obstruction. 5. Trace amount of ascites and liver and spleen.? 2.? Hepatic lesions with transaminitis, present on admission and active. -initial laboratory findings bili 13.6, AST 283, ALT 94, alk-phos 369 ETOH negative, ammonia 55. 3. Type 2 Diabetes, [id number], present on admission and active. -holding metformin, continue Lipitor -given insulin sliding scale, admitted under diabetic protocol -a1c 7.5% 4. HLD, present on admission and active. 5. Essential hypertension, present on admission and stable. -due to current hypotension holding the patient's losartan and metoprolol 6. CAD with previous stent, present on admission and stable. 7. Tobacco dependence (Active smoker), present on admission and stable. Code status:? After bedside discussion with patient regarding his metastatic advanced disease he requested to change full code to DNR status. Surrogate decision maker: Andie Vazquez, family COVID PCR:Negative DVT/VTE prophylaxis:? Lovenox and SCDs
[2022-06-15 09:52] VITALS: BP 106/71; PULSE 110; RESP 18; TEMP 37.1; O2SAT 96
[2022-06-15] MEDS: ONDANSETRON 4 MG/2 ML INJ IV (10:51)
--- NOTE | 2022-06-15 12:24 | PT-IP ANOTE ---
Holding physical therapy evaluation. Spoke with his nurse and the case managers. Pt has had a decline in his medical status and is not responding to questions. He is very lethargic and has not been able to mobilize with nursing. His Girlfriend is expected to visit today to assist with care decisions. Will continue to follow.
--- NOTE | 2022-06-15 12:41 | OT.IPNOTE ---
Hold OT eval due to medical decline.
[2022-06-15] MEDS: SCOPOLAMINE 1 PATCH TOP (13:15)
[2022-06-15] MEDS: LORazepam 2 MG/ML INJ 1 MG IV ×2 (13:15→23:11)
--- NOTE | 2022-06-15 14:47 | CM.DPNOTE ---
DCP Note Patient now comfort care and expected not to survive this hospitalization This morning, attempted conversation w/patient at bedside using sandstone splitter line- Cypriot language. Patient was unable to focus eyes, no eye contact, no appropriate responses to questions asked. Patient able to nod yes when asked if Cypriot was his primary language? Discussed clinical presentation w/RN Dalton who suggested that current presentation may be a reflection of the disease process overwhelming patient's body Placed call to SO Brianna (not Andie) P [phone], determined that Brianna is Filipina and speaks Tagalog. Suggested to Brianna over the phone (in [place]) in simple and no uncertain terms, that she needs to present to the hospital niki because patient appears to be declining very rapidly Attempted to call Brianna multiple times using sandstone splitter line and there was no answer Brianna arrived shortly thereafter with her neighbor Luis Felipe P [phone] who kindly offered transport to patient back/forth from the hospital Dr Lopez joined this [facility] w/a Tagalog sandstone splitter via language line to discuss patient's current clinical status. Brianna asks multiple times if Dr Lopez had a cure for patient, Brianna states she is not ready for patient to . Patient and SO have been together for 20+ years. Dr Lopez further discussed patient's known metastatic disease and very poor prognosis. Brianna stated understanding and says this is so sudden. Briefly discussed dispo options w/SO and w/neighbor Luis Felipe. Brianna reports she cannot care for patient at home and neighbor agrees this is not a realistic or sustainable plan. Dr Lopez suggests patient remain here for now, transition to comfort management SO Brianna has decided to spend the night with patient and may return home in the morning depending on patient's status. Asked about other family members that may want an update and neighbor says patient has children but has not been in contact Plan: Comfort care orders initiated today. If patient survives this hospitalization, hospice house may be an appropriate referral r/t need for IV pain control. SNF on comfort if patient can be transitioned off of IV pain meds JW
[2022-06-15] MEDS: MORPHINE 2 MG/ML INJ IV ×4 (16:38→22:38)
[2022-06-15 20:08] VITALS: BP 97/60; PULSE 121; RESP 13; TEMP 37.2; O2SAT 88
[2022-06-16] MEDS: MORPHINE 2 MG/ML INJ IV ×3 (02:30→15:53)
[2022-06-16] MEDS: LORazepam 2 MG/ML INJ 1 MG IV ×2 (03:29→10:43)
[2022-06-16] MEDS: MORPHINE 50 MG in DEXTROSE 5 % IN WATER 45 ML IV (09:37)
--- NOTE | 2022-06-16 10:04 | PT-IP ANOTE ---
Due to patients decline in medical status and being placed on comfort care will discharge physical therapy order
[2022-06-16] MEDS: MORPHINE 50 MG in DEXTROSE 5 % IN WATER 45 ML 8 MG IV (16:27)
--- NOTE | 2022-06-16 17:24 | P.DN_ITS ---
Discharge Summary History of Illness Narrative: Per admitting provider, Mr. Mota is a 66M with PMH CAD s/p OH stent, DM2, active tobacco smoker, HLD, HTN, history of alcohol abuse, metastatic disease diagnosed 03/2022 lungs liver and abdomen, who presented to the ED following generalized worsening weakness increasing abdominal pain nausea left shoulder pain, jaundice worsening abdominal distention.? Patient was seen in another facility approximately 10 days ago.? I personally reviewed these notes from [facility] ED visit 06/03/2022 I personally reviewed all notes, laboratory and? diagnostics available.? He has not followed up with Oncology.? He informed the ED that he has a scheduled follow-up in approximately 1-2 weeks with an oncologist but is yet to do so.?? At the outside facility he was found to have an elevated bilirubin an elevation in his AST and ALT and alkaline phosphatase.? Upon arrival today the patient is jaundice.? Patient is difficult to converse with as he is almost exclusively focused on his generalized pain and does not appear to truly comprehend the extensiveness of his metastatic disease in relation to his pain and level of function.? I do not believe this is encephalopathic but more impaired cognitive comprehension at baseline. ?On admit patient denies chest pain, shortness in breath, headache, changes in vision, difficulty swallowing, speech impairment, numbness, tingling, difficulty with ambulation, recent falls, head injury, LOC, fever, cough, recent exposure to illness, urinary incontinence/retention, dysuria, frequency, urgency, hematuria, bowel changes, constipation, incontinence, melena, rashes, recent changes to medication, injury, or trauma. Patient's blood pressures are soft both in the ED and on admit afebrile temp 96.9?, BP is 83/50, 98/57, 89/53, 101/59, HR 86, tachypneic from 14-32, O2 satur ation 94% on room air.? Patient has generalized icterus with abdominal distention.? But is in no acute distress.? Platelets 102, BUN 26, bicarb 21, bili 13.6, AST 283, ALT 94, alk-phos 369, PT 16.3, INR 1.4, ETOH is negative, lactate 1.9, procalcitonin 6.29, ammonia 55, respiratory panel is negative, hepatitis and blood culture panels are pending, urinalysis is positive for protein nitrates and bacteria culture pending lipase 1149. CXR:?1. Low lung volumes with pulmonary vascular prominence consistent with pulmonary edema or vascular crowding. 2. Patchy opacities within the left lung base may represent consolidation or mass lesions.? ABD U/S:1. Numerous hepatic lesions concerning for extensive liver metastases. 2. Small amount of ascites fluid in right upper quadrant abdomen. 3. No gallstones.? No sonographic evidence of acute cholecystitis.? No gross biliary ductal dilatation. A/P MRI:? Innumerable hepatic lesions are present, highly suspicious for diffuse hepatic metastases. 2. Nodular pleural thickening in the left hemithorax suspicious for pleural metastases. 3. Bilateral adrenal thickening, indeterminate. 4. No biliary dilation.? No findings to suggest common bile duct obstruction. 5. Trace amount of ascites and liver and spleen. ED consulted with GI at [facility] who noted no biliary obstruction hence no need for transfer to GI for any stent intervention.? I consulted with Dr. David who approved the patient was appropriate for admit to our facility.? Patient admitted to the ICU with sepsis without septic shock, UTI, transaminitis likely secondary to metastatic disease. Hospital Course Date of Admission: 06/11/22 23:14 Date of : 06/16/22 Primary care provider: Melissa Rodriguez DO Consults: 06/11/22 22:18 Consult to Dietitian, Adult Urgent Comment: Reason For Exam: Bmi 26, metatstic dz, DM2 06/11/22 22:35 Consult to Occupational Therapy Evaluate & Treat Comment: weakness Physician Instructions: Evaluate and treat Consult to Physical Therapy Evaluate & Treat Comment: weakness Physician Instructions: Evaluate and Treat 06/12/22 02:34 Consult to Palliative Care Urgent Comment: Consulting Provider: Rosemarie Parada 06/14/22 15:59 Consult to Physical Therapy Evaluate & Treat Comment: discharge planning Physician Instructions: Evaluate and Treat 06/15/22 13:07 Consult to Discharge Planning Routine Comment: Consult to Hospice Referral Urgent Comment: Discharge provider: Candido Leigh D.O. Discharge Diagnosis: 1. 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 2.? Hepatic lesions with transaminitis, present on admission and active. 3. Type 2 Diabetes, [id number],? present on admission and active. 4. HLD, present on admission and active. 5. Essential hypertension, present on admission and stable. 6. CAD with previous stent, present on admission and stable. 7. Tobacco dependence (Active smoker), present on admission and stable. 8. Acute metabolic encepahlopthy. Hospital Course: The patient was admitted with abdominal pain in the setting of having known metastatic disease to the lung and liver of unknown primary.?Patient was initially refusing hospice care and was going to persue outpatient treatment for his malignancy. The case was discussed with palliative Medicine and methadone was started 5 mg t.i.d. for cancer pain.? The patient was initially covered with empiric antibiotics but all cultured remained negative and antibiotic therapies were stopped.?Patient was going to discharge home, however his pain was unable to be controlled and his mental status continued to decline. After discussions with his spouse patient was placed on comfort care. He quickly declined, and required morphine infusion for comfort. Shortly after initiation of morphine infusion, he at 17:21 on 06/16/2022. Time spent: >30 minutes. Objective Labs 06/14/22 04:10 06/14/22 04:10
--- NOTE | 2022-06-16 17:31 | PC.NURSE ---
1722 Pt , at bedside, step daughter Abigail notified. RIP
--- NOTE | 2022-06-17 08:26 | CM.DPC ---
DCP Per Rn, pt last night 1721 after SW shift and spouse was bedside and step dtr was also notified. WILFREDO Moreno
== END 2022-06-16 18:52 | disposition expired | DRG 180 ==
LOC: ED 21:27 → AC 23:14 → ICU 06-12 00:43 → AC 06-12 13:45
PROVIDERS: Emergency Medicine; Admitting Provider Nurse Practitioner Family; Emergency Provider Emergency Medicine; PCP Family Medicine; Visit Provider Nurse Practitioner Family
DX: C78.02 Secondary malignant neoplasm of left lung (principal); G93.41 Metabolic encephalopathy; C78.7 Secondary malignant neoplasm of liver and intrahepatic bile duct; C79.70 Secondary malignant neoplasm of unspecified adrenal gland; R18.0 Malignant ascites; I25.10 Atherosclerotic heart disease of native coronary artery without angina pectoris; F17.210 Nicotine dependence, cigarettes, uncomplicated; E11.9 Type 2 diabetes mellitus without complications; E78.5 Hyperlipidemia, unspecified; E66.3 Overweight; G89.3 Neoplasm related pain (acute) (chronic); I10 Essential (primary) hypertension; Z95.5 Presence of coronary angioplasty implant and graft; Z68.28 Body mass index [BMI] 28.0-28.9, adult; Z20.822 Contact with and (suspected) exposure to COVID-19; Z66 Do not resuscitate; Z79.84 Long term (current) use of oral hypoglycemic drugs
CPT/HCPCS: 36415; 36592; 71045; 74183; 76705; 80048; 80053; 80076; 80320; 80329; 81001; 82140; 82150; 82550; 82962; 83036; 83605; 83615; 83690; 83735; 83880; 84100; 84145; 84484; 85025; 85610; 85651; 85730; 86140; 87040; 87086; 87633; 87797; 93005; 93010; 94762; 96365; 96367; 96375; 96376; 99284; 99285; A9579; G0480; J0696; J1170; J1650; J2060; J2270; J2405; J2543; J3360